=== PATIENT | female | born 1955 | race Caucasian/White ===

== ENCOUNTER 2020-01-20 12:35 | Outpatient (CLI) | payer MEDICARE, SELFPAY ==
[2020-01-20 13:48] LABS: Basophils # 0.1 10^3/uL (0.0-0.1); Basophils % 0.8 %; Eosinophils # 0.3 10^3/uL (0.0-0.8); Hematocrit 42.4 % (37.0-47.0); Hemoglobin 13.6 g/dL (11.5-15.3); Lymphocytes # 1.2 10^3/uL (0.8-4.8); Mean Corpuscular HGB Conc 32.1 g/dL (30.0-36.0); Mean Corpuscular Hemoglobin 30.4 pg (28.0-34.0); Mean Corpuscular Volume 94.6 fL (81-99); Mean Platelet Volume 10.3 fL (7.4-10.4); Monocytes # 0.5 10^3/uL (0.2-0.9); Monocytes % 7.4 %; Neutrophils # 4.4 10^3/uL (1.8-7.7); Neutrophils % 68.6 %; Nucleated Red Blood Cells % 0 %; Platelet Count 315 10^3/cmm (130-400); Red Blood Count 4.48 10^6/uL (4.1-5.3); Red Cell Distribution Width 13.2 % (12.1-15.1); White Blood Count 6.5 10^3/uL (4.0-10.0)
[2020-01-20 14:07] LABS: Alanine Aminotransferase 11 U/L (0-33); Albumin Level 4.3 g/dL (3.5-5.2); Alkaline Phosphatase 128 IU/L (35-105); Anion Gap 14.4 (5-19); Aspartate Amino Transferase 14 U/L (0-32); Blood Urea Nitrogen 13 mg/dL (8-23); Calcium 9.9 mg/dL (8.5-10.5); Carbon Dioxide 29 mmol/L (22-29); Chloride 99 mmol/L (98-107); Globulin 2.9 g/dL (1.3-4.6); Glomerular Filtration Rate 62.8 mL/min (90-130); Glucose 79 mg/dL (65-115); Osmolality Calculated 281 mOsm/kg (285-295); Potassium 4.4 mmol/L (3.5-5.1); Sodium 138 mmol/L (136-145); Total Bilirubin 0.4 mg/dL (0.15-1.2); Total Protein 7.2 g/dL (6.6-8.7)
[2020-01-20 14:32] LABS: Ferritin 35 ng/mL (15-150); Iron 119 ug/dL (37-145); Percent Saturation 54.5 % (20-50); Total Iron Binding Capacity 218 mcg/dl; Unsaturated Iron Binding 99 ug/dL (112-347)
--- NOTE | 2020-01-21 07:13 | ONC FU_ITS ---
Dr. Day Patient Follow-Up Note Patient: Bryson Orona Unit #: [id number]: 1955 Dicatated By: Ted Day M.D.Date of Visit:Jan 20, 2020 Onc Med Follow-up/Prog Note Chief Complaint: Hereditary hemochromatosis. History of Present Illness: This is a 64 year-old woman with hereditary hemochromatosis based on an HFE gene analysis which showed double heterozygosity for the C282Y and the H63D mutations. She has been seeing Dr. Kong for primary care. At one point she was on iron supplementation for suspected iron deficiency anemia. However, in November 2018 she had an HFE gene study after a brother had been diagnosed with hemochromatosis. It showed double heterozygosity for the C282Y and the H63D mutations. Her other laboratory studies at that time included CBC which showed normal hemoglobin at 14.1 g with hematocrit 41.8%. The red cell indices were normal. The white blood cell count was 6100 and the platelet count was 266,000. Chem profile showed normal liver enzymes. The serum iron studies showed elevated serum iron at 232 mcg/dL with transferrin saturation > 93%. The ferritin level, though, was relatively low at 25 ng/mL. I had seen her initially on 06/19/2019. With her ferritin level relatively low, I felt that it was unlikely that she had iron overload, and night initially this recommended rechecking laboratory studies and following her on observation/expectant management. Her further evaluation, though, was delayed, as at the time her was terminally ill and receiving hospice care. She has multiple medical illnesses including hypertension, hyperlipidemia, and coronary artery disease. She had suffered an inferior wall myocardial infarction in 2004, at which time she underwent angioplasty with stent placement to the right coronary artery. She had repeat stent placement to the right coronary artery in May 2014, and she underwent angioplasty/stent placement to the left anterior descending artery in May 2015. During that time, she had also undergone evaluation for recurrent syncope. It was thought perhaps to be due to seizures, but I don't think a definite diagnosis for that was ever established. She also has hypothyroidism and degenerative disease of the spine with chronic back pain. She is a non-smoker. She is seen for a follow-up visit. She has been feeling okay. She says her energy is not great, but she has normal activity. ECOG score is 0. Her main complaint is that she has been having really bad muscle cramps in her arms and legs, both during the daytime and at night. She did start taking an oral iron supplement every other day, but with no benefit. She also reports having restless leg symptoms at night. She has good appetite. She has not had fever. She now has just occasional hot flashes. She has some shortness of breath. She uses her inhaler about every other day. She has not had cough, and she does not complain of chest pain. She has been having acid reflux symptoms. She has no other GI or complaints. She has no significant joint or bone pain. She has no focal neurologic symptoms. She has had some issues with depression following her 's . Medications: Aspirin Low Dose 1 (81 mg) Tablet Oral daily, Cyclobenzaprine HCl 1 Tablet (of 10 mg) Oral at bedtime, DULoxetine HCl 1 (60 mg) Capsule Delayed Release Particles Oral b.i.d., hydrOXYzine HCl (25 mg) Tablet Oral Take as Directed, Lipitor 1 (80 mg) Tablet Oral at bedtime, Lisinopril 1 (10 mg) Tablet Oral at bedtime, Metoprolol Tartrate 0.5 (50 mg) Tablet Oral b.i.d., Nitrostat 1 Tablet (of 0.4 mg) Tablet, sublingual Sublingual PRN, Proventil HFA 2 Puff(s) (of 108 (90 base) mcg/act) Aerosol, solution Inhalation PRN, Synthroid 1 (75 mcg) Tablet Oral daily Allergies: cortisone, hydrocodone, Trandolapril, Vytorin, and Zocor. Review of Systems: Constitutional - Her energy is not great, but she has normal activity. Her appetite is good and her weight is stable. She has not had fever. She has just occasional hot flashes now. ECOG score is 0, ENMT - No sinus congestion/drainage. No mouth sores. No sore throat or difficulty swallowing, Hematologic/Lymphatic - No abnormal bruising or bleeding, Respiratory - She has some shortness of breath. She uses her inhaler about every other day. No cough. No pleuritic pain or hemoptysis, Cardiovascular - No angina pain. No palpitations, Gastrointestinal - No nausea or vomiting. She has acid reflux. No diarrhea or constipation. No blood in the stool or black stools, Genitourinary (F) - No dysuria or hematuria. No urinary frequency. No urgency or incontinence, Musculoskeletal - No joint or bone pain. She does complain that she has really bad muscle cramps in her arms and legs, Integumentary - No skin rash, Neurologic - No headache or dizziness. No numbness or tingling. No other focal neurologic symptoms, Psychiatric - She has anxiety/depression. She sleeps okay with hydroxyzine. Vital Signs: Performed on Jan 20, 2020 14:40 Height - 63.00 in Weight - 171.0 lbs (HIGH) BSA - 1.81 sq.m BMI - 30.29 (HIGH) Temperature - 97.5 F (LOW) Pulse - 74 /min Respiration - 15 /min BP - 144/73 mm(hg) (HIGH) O2 Sat - 93 % (LOW) Pain - 0 Physical Examination: Constitutional - She looks pretty good generally, Eyes - Sclerae nonicteric. Conjunctivae clear, ENMT - No lesions noted in the oral cavity, Hematologic/Lymphatic - No cervical, clavicular, or axillary adenopathy, Respiratory - Lungs are clear with good air movement bilaterally, Cardiovascular - Heart rhythm is regular. There is no murmur, gallop, or rub noted, Abdomen - Soft. Liver and spleen are not enlarged. There is no abdominal mass or ascites noted and there is no inguinal adenopathy, Extremities - No edema, Neurologic - No focal neurologic deficits noted. Lab/Imaging: Test performed on Jan 20, 2020 12:51 Ferritin 35 ng/mL Iron 119 mcg/dL Sodium 138 mmol/L Iron Binding Capacity (TIBC) 218 mcg/dl Potassium 4.4 mmol/L % Iron Saturation 54.5 % Chloride 99 mmol/L CO2 29 mmol/L UIBC 99 mcg/dL Anion Gap 14.4 BUN 13 mg/dL Creatinine 0.9 mg/dL Cr Clearance (Est) 76.31 mL/min eGFR 62.8 mL/min Glucose 79 mg/dL Calcium 9.9 mg/dL Protein, Total 7.2 g/dL Albumin 4.3 g/dL Globulin 2.9 g/dL Bilirubin, Total 0.4 mg/dL ALT (SGPT) 11 U/L AST (SGOT) 14 U/L Alkaline Phosphatase 128 IU/L WBC 6.5 10 3/uL RBC 4.48 10 6/uL HGB 13.6 g/dL HCT 42.4 % MCV 94.6 fL MCH 30.4 pg MCHC 32.1 g/dL RDW 13.2 % Platelet Count 315 10 3/cmm MPV 10.3 fL Neutrophils 4.4 10 3/uL Lymphocytes 1.2 10 3/uL Monocytes 0.5 10 3/uL Eosinophils 0.3 10 3/uL Basophils 0.1 10 3/uL Neutrophil % 68.6 % Lymphocyte % 18.0 % Monocyte % 7.4 % Eosinophil % 5.0 % Basophils % 0.8 % NRBC % 0 % Impression: 1. Patient with hereditary hemachromatosis based on an HFE gene analysis which showed double heterozygosity for the C282Y and the H63D mutations. 2. Although she had a significantly elevted transferrin saturation, it appeared unlikely to be symptomatic, as her ferritin level was in the low normal range, and that particular genotype is generally not associated with organ damage from iron overload. Her other medical illnesses include: 3. Hypertension. 4. Hyperlipidemia. 5. Coronary artery disease with previous myocardial infarction and angioplasty/stent placement on 3 occasions. 6. Hypothyroidism. 7. Degenerative disease of the spine with chronic back pain. Thus far she has been monitored on observation/expectant management. Her repeat laboratory studies showed just mildly elevated transferrin saturation, which would be typical with a heterozygous C282Y mutation. The ferritin level remains in the low normal range. With those findings, it appears unlikely that she has iron overload. She is having significant muscle cramping, and she also has restless leg symptoms. These have not improved on oral iron supplementation. Plan: Although I think it is unlikely that she has iron overload, I have recommended that she stop the oral iron supplement, mainly because it is not helping her symptoms. She will instead be given a prescription for ropinirole 0.25 mg twice daily, and that dosage can be escalated as necessary. She also will be given a prescription for Protonix for her GERD symptoms. She will be scheduled for a follow-up visit in 6 months. Signed By: Ted Day M.D. <<Signature on File>>
== END 2020-01-20 12:36 | disposition home or self-care (01) ==
PROVIDERS: PCP Internal Medicine; Visit Provider Internal Medicine Medical Oncology
DX: E83.110 Hereditary hemochromatosis (principal); R79.89 Other specified abnormal findings of blood chemistry; K21.9 Gastro-esophageal reflux disease without esophagitis; I10 Essential (primary) hypertension; E78.5 Hyperlipidemia, unspecified; I25.10 Atherosclerotic heart disease of native coronary artery without angina pectoris; I25.2 Old myocardial infarction; E03.9 Hypothyroidism, unspecified; M19.90 Unspecified osteoarthritis, unspecified site; Z95.1 Presence of aortocoronary bypass graft; Z95.5 Presence of coronary angioplasty implant and graft; Z79.899 Other long term (current) drug therapy
CPT/HCPCS: 80053; 82728; 83540; 83550; 85025; 99214

== ENCOUNTER 2020-07-03 13:13 | Outpatient (CLI) | payer MEDICARE, SELFPAY ==
--- NOTE | 2020-07-03 13:21 | XR_ITS ---
WS: [id number] CHEST 2 VIEWS HISTORY: COUGH COMPARISON: 12/07/2015 Lungs: Clear with no abnormality. No pleural effusion or pneumothorax. Cardiac size: Normal. Mediastinum/Aorta: Mild atherosclerosis aorta. Bones: Normal. XR/XR chest 2V* [id number] IMPRESSION: Mild atherosclerosis aorta. No pneumonia.
== END 2020-07-03 13:14 | disposition home or self-care (01) ==
LOC: RAD 13:17
PROVIDERS: PCP Internal Medicine; Visit Provider Nurse Practitioner Family
DX: R05 Cough (principal); I70.0 Atherosclerosis of aorta
CPT/HCPCS: 71046

== ENCOUNTER 2020-09-23 13:06 | Outpatient (CLI) | payer MEDICARE, SELFPAY ==
[2020-09-23 14:07] LABS: Basophils % 0.8 %; Eosinophils # 0.3 10^3/uL (0.0-0.8); Eosinophils % 5.3 %; Hematocrit 39.1 % (37.0-47.0); Hemoglobin 12.6 g/dL (11.5-15.3); Lymphocytes # 1.1 10^3/uL (0.8-4.8); Lymphocytes % 22.4 %; Mean Corpuscular HGB Conc 32.2 g/dL (30.0-36.0); Mean Corpuscular Volume 93.1 fL (81-99); Mean Platelet Volume 10.4 fL (7.4-10.4); Monocytes # 0.4 10^3/uL (0.2-0.9); Monocytes % 7.3 %; Neutrophils # 3.24 10^3/uL (1.8-7.7); Neutrophils % 63.8 %; Nucleated Red Blood Cells % 0 %; Platelet Count 325 10^3/cmm (130-400); Red Cell Distribution Width 13.7 % (12.1-15.1); White Blood Count 5.1 10^3/uL (4.0-10.0)
[2020-09-23 14:35] LABS: Alanine Aminotransferase 15 U/L (0-33); Albumin Level 3.9 g/dL (3.5-5.2); Alkaline Phosphatase 128 IU/L (35-105); Anion Gap 12.3 (5-19); Aspartate Amino Transferase 13 U/L (0-32); Blood Urea Nitrogen 13 mg/dL (8-23); Calcium 9.1 mg/dL (8.5-10.5); Carbon Dioxide 28 mmol/L (22-29); Chloride 99 mmol/L (98-107); Ferritin 19 ng/mL (15-150); Glomerular Filtration Rate 71.8 mL/min (90-130); Glucose 101 mg/dL (65-115); Iron 89 ug/dL (37-145); Osmolality Calculated 280 mOsm/kg (285-295); Percent Saturation 35.6 % (20-50); Potassium 4.3 mmol/L (3.5-5.1); Sodium 135 mmol/L (136-145); Total Bilirubin 0.3 mg/dL (0.15-1.2); Total Iron Binding Capacity 250 mcg/dl; Total Protein 6.9 g/dL (6.6-8.7); Unsaturated Iron Binding 161 ug/dL (112-347)
--- NOTE | 2020-09-23 20:37 | ONC FU_ITS ---
Dr. Day Patient Follow-Up Note Patient: Bryson Orona Unit #: [id number]: 1955 Dicatated By: Ted Day M.D.Date of Visit:Sep 23, 2020 Onc Med Follow-up/Prog Note Chief Complaint: Hereditary hemochromatosis. History of Present Illness: This is a 65 year-old woman with hereditary hemochromatosis based on an HFE gene analysis which showed double heterozygosity for the C282Y and the H63D mutations. She has been seeing Dr. Kong for primary care. At one point she was on iron supplementation for suspected iron deficiency anemia. However, in November 2018 she had an HFE gene study after a brother had been diagnosed with hemochromatosis. It showed double heterozygosity for the C282Y and the H63D mutations. Her other laboratory studies at that time included CBC which showed normal hemoglobin at 14.1 g with hematocrit 41.8%. The red cell indices were normal. The white blood cell count was 6100 and the platelet count was 266,000. Chem profile showed normal liver enzymes. The serum iron studies showed elevated serum iron at 232 mcg/dL with transferrin saturation > 93%. The ferritin level, though, was relatively low at 25 ng/mL. I had seen her initially on 06/19/2019. With her ferritin level relatively low, I felt that it was unlikely that she had iron overload, and I initially just recommended rechecking laboratory studies and following her on observation/expectant management. Her further evaluation, though, was delayed, as at the time her was terminally ill and receiving hospice care. She has multiple medical illnesses including hypertension, hyperlipidemia, and coronary artery disease. She had suffered an inferior wall myocardial infarction in 2004, at which time she underwent angioplasty with stent placement to the right coronary artery. She had repeat stent placement to the right coronary artery in May 2014, and she underwent angioplasty/stent placement to the left anterior descending artery in May 2015. During that time, she had also undergone evaluation for recurrent syncope. It was thought perhaps to be due to seizures, but I don't think a definite diagnosis for that was ever established. She also has hypothyroidism and degenerative disease of the spine with chronic back pain. She is a non-smoker. She is seen for a follow-up visit. She indicates that she was diagnosed with COVID-19 virus infection in May. She had a pretty significant illness, though she did not require hospitalization. She is really only been feeling better in the last couple of weeks. Her activity tolerance is still limited. ECOG score is 1. Her appetite is better now, but she still has no taste or smell. She does not have fever or night sweats. She still sometimes has shortness of breath, but her cough has resolved. She does not complain of chest pain. She colonel he has no GI or complaints. She was having severe body aches, but that has also resolved now. She does not complain of headache. She still has some issues with balance. She has no focal neurologic symptoms. She does report having anxiety and depression. Medications: Aspirin Low Dose 1 (81 mg) Tablet Oral daily, Cozaar (25 mg) Tablet Oral daily, Cyclobenzaprine HCl 1 Tablet (of 10 mg) Oral at bedtime, DULoxetine HCl 1 (60 mg) Capsule Delayed Release Particles Oral b.i.d., hydrOXYzine HCl (25 mg) Tablet Oral Take as Directed, Lipitor 1 (80 mg) Tablet Oral at bedtime, Metoprolol Tartrate 0.5 (50 mg) Tablet Oral b.i.d., Nitrostat 1 Tablet (of 0.4 mg) Tablet, sublingual Sublingual PRN, Proventil HFA 2 Puff(s) (of 108 (90 base) mcg/act) Aerosol, solution Inhalation PRN, Synthroid 1 (75 mcg) Tablet Oral daily Allergies: cortisone, hydrocodone, Trandolapril, Vytorin, and Zocor. Vital Signs: Performed on Sep 23, 2020 15:04 Height - 63.00 in Weight - 185.6 lbs (HIGH) BSA - 1.87 sq.m BMI - 32.88 (HIGH) Temperature - 98.2 F (LOW) Pulse - 71 /min Respiration - 18 /min BP - 152/81 mm(hg) (HIGH) O2 Sat - 97 % Pain - 0 Fatigue - 5 Physical Examination: Constitutional - She looks pretty good generally, Eyes - Sclerae nonicteric. Conjunctivae clear, ENMT - No lesions noted in the oral cavity, Hematologic/Lymphatic - No cervical, clavicular, or axillary adenopathy, Respiratory - Lungs are clear with good air movement bilaterally, Cardiovascular - Heart rhythm is regular. There is no murmur, gallop, or rub noted, Abdomen - Soft. Liver and spleen are not enlarged. There is no abdominal mass or ascites noted and there is no inguinal adenopathy, Extremities - No edema, Neurologic - No focal neurologic deficits noted. Lab/Imaging: Test performed on Sep 23, 2020 13:20 Ferritin 19 ng/mL Iron 89 mcg/dL Sodium 135 mmol/L Iron Binding Capacity (TIBC) 250 mcg/dl Potassium 4.3 mmol/L % Iron Saturation 35.6 % Chloride 99 mmol/L CO2 28 mmol/L UIBC 161 mcg/dL Anion Gap 12.3 BUN 13 mg/dL Creatinine 0.8 mg/dL Cr Clearance (Est) 91.93 mL/min eGFR 71.8 mL/min Glucose 101 mg/dL Osmolality - Calculated 280 mOsm/kg Calcium 9.1 mg/dL Protein, Total 6.9 g/dL Albumin 3.9 g/dL Globulin 3.0 g/dL Bilirubin, Total 0.3 mg/dL ALT (SGPT) 15 U/L AST (SGOT) 13 U/L Alkaline Phosphatase 128 IU/L WBC 5.1 10 3/uL RBC 4.20 10 6/uL HGB 12.6 g/dL HCT 39.1 % MCV 93.1 fL MCH 30.0 pg MCHC 32.2 g/dL RDW 13.7 % Platelet Count 325 10 3/cmm MPV 10.4 fL Neutrophils 3.24 10 3/uL Lymphocytes 1.1 10 3/uL Monocytes 0.4 10 3/uL Eosinophils 0.3 10 3/uL Basophils 0.0 10 3/uL Neutrophil % 63.8 % Lymphocyte % 22.4 % Monocyte % 7.3 % Eosinophil % 5.3 % Basophils % 0.8 % NRBC % 0 % Problem List: 1. Patient with hereditary hemochromatosis based on an HFE gene analysis which showed double heterozygosity for the C282Y and the H63D mutations. 2. Hypertension. 3. Hyperlipidemia. 4. Coronary artery disease with previous myocardial infarction and angioplasty/stent placement on 3 occasions. 5. Hypothyroidism. 6. Degenerative disease of the spine with chronic back pain. Problems Addressed with this Encounter and Plan: Patient with hereditary hemochromatosis based on an HFE gene analysis which showed double heterozygosity for the C282Y and the H63D mutations. She had a significantly elevated transferrin saturation, but I felt that symptomatic iron overload would be unlikely, as her ferritin level was in the low normal range and her particular HFE genotype is ordinarily not associated with iron overload. As such, I had opted to just follow her expectantly. Her clinical status has been stable other than she was diagnosed with COVID-19 virus infection in May, and she had a pretty significant illness, though she does now appear to be recovering. As her serum iron studies now show normal transferrin saturation at 35% and her ferritin level remains low at 19 ng/mL, it is very unlikely that she has or will have iron overload. She can be followed expectantly for this. I would recommend rechecking her serum iron studies and ferritin every 6 to 12 months. She is advised to continue regular follow-up with Dr. Kong. I will plan to see her here again only as needed. Signed By: Ted Day M.D. <<Signature on File>>
== END 2020-09-23 13:07 | disposition home or self-care (01) ==
LOC: ONCMED 13:12
PROVIDERS: PCP Internal Medicine; Visit Provider Internal Medicine Medical Oncology
DX: E83.110 Hereditary hemochromatosis (principal); Z86.16 Personal history of COVID-19
CPT/HCPCS: 80053; 82728; 83540; 83550; 85025; 99214

== ENCOUNTER 2020-10-27 07:31 | Observation (INO) | payer MEDICARE, SELFPAY ==
[2020-10-27] VITALS (15 sets, daily range): BP systolic 94–176; BP diastolic 66–109; PULSE 77–101; RESP 16–25; TEMP 36.3–36.8; O2SAT 91–98; BMI 31.9
--- NOTE | 2020-10-27 07:52 | ECG_ITS ---
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 Measurements Intervals [place] Rate: 94 P: 56 TX: 138 QRS: -9 QRSD: 93 T: 19 QT: 367 QTc: 461 Interpretive Statements SINUS RHYTHM Compared to ECG 12/07/2015 17:13:16 No significant changes Electronically Signed On 10-27-2020 17:02:21 CDT by Nehemias Pérez M.D. [id number]
--- NOTE | 2020-10-27 07:52 | XRR_ITS ---
PROCEDURE INFORMATION: Exam: XR Chest Exam date and time: 10/27/2020 8:05 AM Age: 65 years old Clinical indication: Shortness of breath; Chest pain; Type not specified; Prior surgery; Surgery type: Stents, filters TECHNIQUE: Imaging protocol: XR of the chest Views: 1 view. COMPARISON: CR XR chest 2V* [id number] 07/03/2020 1:31 PM FINDINGS: Lungs: Unremarkable. No consolidation. Pleural spaces: Unremarkable. No pleural effusion. No pneumothorax. Heart/Mediastinum: Unremarkable. No cardiomegaly. Bones/joints: Unremarkable. XR/XR chest 1V portable [id number] IMPRESSION: No acute findings.
--- NOTE | 2020-10-27 08:24 | ED_ITS ---
HPI - Chest Pain General: Chief Complaint: Chest Pain Stated Complaint: CP Time Seen by Provider: 10/27/20 07:44 History of Present Illness: HPI narrative: 65-year-old female presents emergency room complaining of chest pain. She has been having chest pain most of the night. He estimates that she took as many as 8 sublingual nitro overnight. She been having periods of chest pain with exertion that will resolve with rest the been progressively getting worse she has been taking the sublingual nitro in addition to rest from exertion to get the pain to resolve usually resolves within 5 to 10 minutes. She has had previous coronary events and has had several angiograms and stents. She had skipped a stress test several years ago and then subsequent had another event requiring intervention. She is essentially pain-free at this time. Pain is waking her up from sleep last night she said it got better when she sat up resolved with the nitro but then after she fell asleep would wake her up again. MD complaint: chest pain Pertinent past history: coronary artery disease Onset (ago): hour(s) Timing of current episode: episodic and increasing Prior episodes: Yes Onset: during rest Pain location: substernal and left chest Severity: moderate Quality: tightness, heaviness and similar to prior SD Relieving factors: nitroglycerin and rest Exacerbating factors: exertion Associated symptoms: Reports diaphoresis, dyspnea, nausea and sense of impending doom; Deny abdominal pain, fever(s), leg edema, palpitations, syncope or vomiting Treatment prior to arrival: nitroglycerin Review of Systems Const: Reports: diaphoresis; Denies: fever(s) ENMT: Denies: throat pain, ear or mastoid pain, nasal discharge or nasal congestion Card: Denies: palpitations or syncope Resp: Reports: dyspnea GI: Reports: nausea; Denies: abdominal pain or vomiting : Denies: flank pain, difficulty voiding, dysuria, urinary frequency or urinary urgency Skin/Breast: Denies: rash or pruritus PFSH ED PFSH: Medical History (Updated 10/27/20 @ 16:04 by Chevy Chavez DO) ASHD (arteriosclerotic heart disease) Depression Diastolic dysfunction Dyslipidemia GERD (gastroesophageal reflux disease) H/O acute myocardial infarction Hemochromatosis Hypertension Hypothyroidism Ischemic heart disease Surgical History (Updated 10/27/20 @ 16:04 by Chevy L Horstman, DO) S/P PTCA (percutaneous transluminal coronary angioplasty) S/P tonsillectomy Family History Mother Stroke Hyperlipidemia Hypertension CAD (coronary artery disease) Myocardial infarction Father CAD (coronary artery disease) Hypertension Myocardial infarction Sister Cancer BREAST Social History Smoking and tobacco status: never smoked Alcohol intake: never Household members: spouse Marital status: Physical Exam Const: COMMON NORMALS: no acute distress GENERAL APPEARANCE: cooperative and comfortable ORIENTATION/CONSCIOUSNESS: Yes awake, Yes oriented to person, Yes oriented to place and Yes oriented to time HENMT: COMMON NORMALS: normocephalic, atraumatic and hearing grossly normal bilaterally HEAD & SCALP: normocephalic and atraumatic Neck/C-Spine: COMMON NORMALS: no JVD Resp: COMMON NORMALS: normal respiratory effort, No retractions, No use of accessory muscles and clear to auscultation bilaterally AUSCULTATION: clear to auscultation bilaterally Cardio: COMMON NORMALS: no JVD, regular rate, regular rhythm and No murmurs present (Cardio) RATE: regular rate RHYTHM: regular rhythm GI: COMMON NORMALS: Soft to palpation and No hepatosplenomegaly present AUSCULTATION: Yes normoactive bowel sounds PALPATION: Yes Soft to palpation, No Tenderness to palpation present (GI), No Guarding due to palpation present (GI) and Yes No hepatosplenomegaly present Extremity: COMMON NORMALS: normal to inspection, capillary refill normal, no clubbing, cyanosis or edema, no calf tenderness and no pedal edema Neuro: SENSORIUM/ORIENTATION: Yes oriented to person, Yes oriented to place and Yes oriented to time Skin: COMMON NORMALS: no rashes or lesions noted GENERAL SKIN EXAM: no rashes or lesions noted Course Vital Signs: Vital signs: Vital Signs Temperature 97.4 F L 10/27/20 13:50 Pulse Rate 98 10/27/20 15:48 Respiratory Rate 17 10/27/20 15:06 Blood Pressure 150/89 10/27/20 15:06 Pulse Oximetry 95 10/27/20 15:48 MDM - Chest Pain MDM Narrative: Medical decision making narrative: Patient use up to 8 sublingual nitros last night known history of coronary disease. Concerned about her escalating angina she has no acute ST changes and her troponin is normal will admit for rule out and further cardiac evaluation. At this point did not believe they would be safe given her history and the escalating chest pain with resolution with nitro to send her home. Lab Data: Labs: Lab Results 10/27/20 10/27/20 10/27/20 Range/Units 08:21 08:21 08:21 WBC 5.5 (4.0-10.0) 10^3/ uL RBC 4.64 (4.1-5.3) 10^6/u L Hgb 13.5 (11.5-15.3) g/dL Hct 42.6 (37.0-47.0) % MCV 91.8 (81-99) fL MCH 29.1 (28.0-34.0) pg MCHC 31.7 (30.0-36.0) g/dL RDW 13.6 (12.1-15.1) % Plt Count 285 (130-400) 10^3/c mm MPV 10.3 (7.4-10.4) fL Neut % (Auto) 66.1 % Lymph % (Auto) 19.9 % Hamilton % (Auto) 7.1 % Eos % (Auto) 6.0 % Baso % (Auto) 0.7 % Neut # (Auto) 3.63 (1.8-7.7) 10^3/u L Lymph # (Auto) 1.1 (0.8-4.8) 10^3/u L Hamilton # (Auto) 0.4 (0.2-0.9) 10^3/u L Eos # (Auto) 0.3 (0.0-0.8) 10^3/u L Baso # (Auto) 0.0 (0.0-0.1) 10^3/u L Nucleated RBC % (a uto) 0 % Nucleated RBCs # 0.0 /100WBC Sodium 136 (136-145) mmol/L Potassium 4.2 (3.5-5.1) mmol/L Chloride 100 (98-107) mmol/L Carbon Dioxide 25 (22-29) mmol/L Anion Gap 15.2 (5-19) BUN 17 (8-23) mg/dL Creatinine 0.8 (0.5-0.9) mg/dL GFR Calculation 71.8 L (90-130) mL/min Glucose 116 H (65-115) mg/dL Calculated Osmolal ity 285 (285-295) mOsm/k g Calcium 9.3 (8.5-10.5) mg/dL Total Bilirubin 0.2 (0.15-1.2) mg/dL AST 14 (0-32) U/L ALT 16 (0-33) U/L Alkaline Phosphata se 142 H (35-105) IU/L Troponin T Baselin e 7 (0-10) ng/L Total Protein 7.0 (6.6-8.7) g/dL Albumin 4.4 (3.5-5.2) g/dL Globulin 2.6 (1.3-4.6) g/dL TSH (0.27-4.20) uIU/ mL 10/27/20 Range/Units 08:21 WBC (4.0-10.0) 10^3/ uL RBC (4.1-5.3) 10^6/u L Hgb (11.5-15.3) g/dL Hct (37.0-47.0) % MCV (81-99) fL MCH (28.0-34.0) pg MCHC (30.0-36.0) g/dL RDW (12.1-15.1) % Plt Count (130-400) 10^3/c mm MPV (7.4-10.4) fL Neut % (Auto) % Lymph % (Auto) % Hamilton % (Auto) % Eos % (Auto) % Baso % (Auto) % Neut # (Auto) (1.8-7.7) 10^3/u L Lymph # (Auto) (0.8-4.8) 10^3/u L Hamilton # (Auto) (0.2-0.9) 10^3/u L Eos # (Auto) (0.0-0.8) 10^3/u L Baso # (Auto) (0.0-0.1) 10^3/u L Nucleated RBC % (a uto) % Nucleated RBCs # /100WBC Sodium (136-145) mmol/L Potassium (3.5-5.1) mmol/L Chloride (98-107) mmol/L Carbon Dioxide (22-29) mmol/L Anion Gap (5-19) BUN (8-23) mg/dL Creatinine (0.5-0.9) mg/dL GFR Calculation (90-130) mL/min Glucose (65-115) mg/dL Calculated Osmolal ity (285-295) mOsm/k g Calcium (8.5-10.5) mg/dL Total Bilirubin (0.15-1.2) mg/dL AST (0-32) U/L ALT (0-33) U/L Alkaline Phosphata se (35-105) IU/L Troponin T Baselin e (0-10) ng/L Total Protein (6.6-8.7) g/dL Albumin (3.5-5.2) g/dL Globulin (1.3-4.6) g/dL TSH 4.87 H (0.27-4.20) uIU/ mL Discharge Plan Discharge Admit Provider: Alex Dougherty Clinical Impression: Unstable angina pectoris, ASHD (arteriosclerotic heart disease), Diastolic dysfunction, H/O acute myocardial infarction, S/P PTCA (percutaneous transluminal coronary angioplasty), Hypothyroidism, Hypertension Condition: Stable Coding Level of Care Code ED Order Processing Clerk for Chg Fwd Exam Comprehensive
[2020-10-27] MEDS: aspirin 81 mg Chew Tablet 324 MG PO (08:36)
[2020-10-27] MEDS: nitroglycerin 1 gm/inch oint Pkt 0.5 INCH TOPICAL (08:37)
[2020-10-27 08:39] LABS: Basophils % 0.7 %; Eosinophils # 0.3 10^3/uL (0.0-0.8); Hematocrit 42.6 % (37.0-47.0); Hemoglobin 13.5 g/dL (11.5-15.3); Lymphocytes # 1.1 10^3/uL (0.8-4.8); Lymphocytes % 19.9 %; Mean Corpuscular HGB Conc 31.7 g/dL (30.0-36.0); Mean Corpuscular Hemoglobin 29.1 pg (28.0-34.0); Mean Corpuscular Volume 91.8 fL (81-99); Mean Platelet Volume 10.3 fL (7.4-10.4); Monocytes # 0.4 10^3/uL (0.2-0.9); Monocytes % 7.1 %; Neutrophils # 3.63 10^3/uL (1.8-7.7); Neutrophils % 66.1 %; Nucleated Red Blood Cells % 0 %; Platelet Count 285 10^3/cmm (130-400); Red Blood Count 4.64 10^6/uL (4.1-5.3); Red Cell Distribution Width 13.6 % (12.1-15.1); White Blood Count 5.5 10^3/uL (4.0-10.0)
[2020-10-27 08:55] LABS: Alanine Aminotransferase 16 U/L (0-33); Albumin Level 4.4 g/dL (3.5-5.2); Alkaline Phosphatase 142 IU/L (35-105); Anion Gap 15.2 (5-19); Aspartate Amino Transferase 14 U/L (0-32); Blood Urea Nitrogen 17 mg/dL (8-23); Calcium 9.3 mg/dL (8.5-10.5); Carbon Dioxide 25 mmol/L (22-29); Chloride 100 mmol/L (98-107); Globulin 2.6 g/dL (1.3-4.6); Glomerular Filtration Rate 71.8 mL/min (90-130); Glucose 116 mg/dL (65-115); Osmolality Calculated 285 mOsm/kg (285-295); Potassium 4.2 mmol/L (3.5-5.1); Sodium 136 mmol/L (136-145); Total Bilirubin 0.2 mg/dL (0.15-1.2)
[2020-10-27 08:57] LABS: Troponin(5th) Baseline 7 ng/L (0-10)
--- NOTE | 2020-10-27 09:52 | ECG_ITS ---
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 Measurements Intervals [place] Rate: 82 P: 46 DC: 133 QRS: -9 QRSD: 89 T: -4 QT: 385 QTc: 450 Interpretive Statements SINUS RHYTHM NONSPECIFIC T-WAVE ABNORMALITY Compared to ECG 12/07/2015 17:13:16 T-wave abnormality now present Electronically Signed On 10-27-2020 17:04:48 CDT by Nehemias Pérez M.D. [id number]
--- NOTE | 2020-10-27 10:25 | PM.HP ---
Providers/Chief Complaint Primary Care Provider: Claudia Kong MD Chief Complaint: CP History of Present Illness Bryson Orona is a 65 year old female who presents to the emergency department with complaints of chest discomfort. She states she had chest discomfort, dull, left side of chest up to her arm and chin starting around 630 last night. She reports she took some sublingual nitroglycerin that helped and ended up taking around 10 last night. She has rarely had chest discomfort before, but did take an occasional nitroglycerin throughout the last 6 months. She reports this feels like her chest discomfort she had with her myocardial infarction in 2013. She was seen by cardiology in clinic in July and described occasional episodes of chest discomfort. A stress test was recommended at that time but patient did not follow through on scheduling this. She does have a past history of Covid, in May from which she has since recovered. She reports shortness of breath was associated with her chest discomfort but no diaphoresis or nausea. In regards to her coronary disease she reports she first had presentation of coronary artery disease at 48 years of age and received several stents at [facility] in [place]. She had an RCA stent placed here in 2013 and an LAD stent placed here in 2014. In the emergency department she received aspirin, and topical nitrates Review of Systems General: Reports: 10 or more systems reviewed and unremarkable except in HPI and below Const: Denies: fever(s) or chills Eyes: Denies: change in vision ENMT: Denies: throat pain Card: Reports: chest pain Resp: Reports: dyspnea : Denies: flank pain Musc: Denies: neck pain Skin/Breast: Denies: rash Neuro: Denies: headache(s) Psych: Denies: anxiety or depression Endo: Denies: polyuria Carlos/Lymph: Denies: easy bruising All/Imm: Denies: urticaria Medications/Allergies Home Medications Medication Instructions Recorded Confirmed Last Taken Type albuterol sulfate 90 mcg/actuation 2 puff INHALATION Q6H PRN 12/30/19 02/18/20 Unknown History aerosol inhaler atorvastatin 80 mg tablet 80 mg PO DAILY 12/30/19 02/18/20 Unknown History cyclobenzaprine 10 mg tablet 10 mg PO TID PRN 12/30/19 02/18/20 Unknown History levothyroxine 75 mcg tablet 75 mcg PO DAILY 12/30/19 02/18/20 Unknown History metoprolol tartrate 50 mg tablet 25 mg PO BID tab 12/30/19 02/18/20 Unknown History nitroglycerin 0.4 mg sublingual 0.4 mg SUBLINGUAL Q5M PRN 12/30/19 02/18/20 Unknown History tablet duloxetine 60 mg capsule,delayed 60 mg PO BID cap 02/18/20 02/18/20 Unknown History release hydroxyzine HCl 25 mg tablet 25 mg PO BID PRN 08/18/20 Unknown History pantoprazole 40 mg tablet,delayed 40 mg PO DAILY 08/18/20 Unknown History release aspirin [Aspir-81] 81 mg PO DAILY@10 10/27/20 10/27/20 10/26/20 History ibuprofen 600 mg PO PRN 10/27/20 10/27/20 Unknown History losartan 50 mg PO BEDTIME 10/27/20 10/27/20 Unknown History Allergies Allergy/AdvReac Type Severity Reaction Status Date / Time acetaminophen [From Vicodin] Allergy Unknown Unknown Verified 10/27/20 07:53 ezetimibe [From Vytorin] Allergy Unknown Unknown Verified 10/27/20 07:53 hydrocodone [From Vicodin] Allergy Unknown Unknown Verified 10/27/20 07:53 simvastatin [From Vytorin] Allergy Unknown Unknown Verified 10/27/20 07:53 trandolapril [From Mavik] Allergy hives Verified 10/27/20 07:53 PFSH Acute PFSH: Medical History (Updated 10/27/20 @ 10:35 by Alex Dougherty MD) ASHD (arteriosclerotic heart disease) Depression Diastolic dysfunction Dyslipidemia GERD (gastroesophageal reflux disease) H/O acute myocardial infarction Hemochromatosis Hypertension Hypothyroidism Ischemic heart disease Surgical History S/P PTCA (percutaneous transluminal coronary angioplasty) S/P tonsillectomy Family History Mother Stroke Hyperlipidemia Hypertension CAD (coronary artery disease) Myocardial infarction Father CAD (coronary artery disease) Hypertension Myocardial infarction Sister Cancer BREAST Social History Smoking and tobacco status: never smoked Alcohol intake: never Household members: spouse Marital status: Vitals/I&O/Wt Last Vital Signs Temp 98.2 F 10/27/20 07:44 Pulse 87 10/27/20 08:28 Resp 18 10/27/20 08:28 BP 176/109 10/27/20 08:28 Pulse Ox 97 10/27/20 08:28 Weight last 48 hrs Weight 84.368 kg Physical Exam Narrative: EXAM NARRATIVE: General exam is a white female, in no apparent distress, and reporting she is chest discomfort free. HEENT: Pupils equally round. Oropharynx clear. Neck is supple no lymphadenopathy or thyromegaly Cardiovascular regular rate and rhythm without murmur, no S3 or S4 Lungs are clear no wheezing or crackles Abdomen is soft obese nontender with positive bowel sounds. No obvious organomegaly exam is deferred Extremities no cyanosis clubbing or edema, cap refill brisk Skin no rash Neuro no focal deficits. Data : 10/27/20 08:21 10/27/20 08:21 Other data: EKG demonstrates sinus rhythm, normal axis/borderline left axis, nonspecific ST-T wave flattening V4 through 6 as well as inferior leads. Chest x-ray demonstrates no infiltrate, calcification noted in the aorta. LFTs are normal. Calcium is 9.3 A&P Assessment and plan (1) Chest pain: Concerning for unstable angina. Initial troponin negative Continue serial troponins and EKGs. Check TSH Full dose anticoagulation with Lovenox Aspirin, statin, beta-dwight will be continued Continue nitroglycerin ointment Cardiology consultation Check echocardiogram Status: Acute Qualifiers: Chest pain type: unspecified Qualified Code(s): R07.9 - Chest pain, unspecified (2) Ischemic heart disease: See above Status: Acute (3) Hypertension: Continue home medications Status: Acute (4) Dyslipidemia: Continue statin Status: Acute (5) Hypothyroidism: Check TSH, continue levothyroxine Status: Acute Additional A&P Information Other medical problems as outlined in past medical history Lovenox will suffice for DVT prophylaxis Full code Attestations Medical Necessity Statement*: Will need less than 2 midnight stay for evaluation and treatment of chest discomfort Time Spent in Patient Care: Greater than 35 minutes Coding Level of Care Code Acute Configuration Specialist for [facility] Diagnoses Chest pain R07.9 Chest pain type: unspecified Ischemic heart disease I25.9 Hypertension I10 Dyslipidemia E78.5 Hypothyroidism E03.9
--- NOTE | 2020-10-27 10:38 | PC.PHAR ---
pt states she takes care of her own medications-pt states she takes flexeril 10mg po hs-ext med history shows filled on 10/08/20 10d/s for 10mg po tid prn-pt states she takes hydroxyzine 25mg 100mg po hs-ext med history shows last filled on 25mg po q6h prn anxiety-pt states she takes levothyroxine 75mcg daily-ext med history shows 88mcg daily last fillled on 10/23/20 pt states she doesnt have that rx-pt states she takes metoprolol tartrate 25mg po bid-rx filled on 10/26/20 for 50mg bid-
[2020-10-27 11:22] LABS: Thyroid Stimulating Hormone 4.87 uIU/mL (0.27-4.20)
[2020-10-27 11:47] LABS: Troponin 5 2HR 7.07 ng/L (0-10); Troponin 5 2HR Delta 0.07 ABS# (0-10)
--- NOTE | 2020-10-27 13:52 | ECG_ITS ---
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 Measurements Intervals [place] Rate: 101 P: 40 ID: [id number] QRS: -15 QRSD: 96 T: 17 QT: 379 QTc: 493 Interpretive Statements SINUS TACHYCARDIA WITH OCCASIONAL VENTRICULAR PREMATURE COMPLEXES Compared to ECG 10/27/2020 10:06:20 Ventricular premature complex(es) now present Sinus rhythm no longer present T-wave abnormality no longer present Electronically Signed On 10-27-2020 17:03:52 CDT by Nehemias Pérez M.D. [id number]
[2020-10-27] MEDS: nitroglycerin 1 gm/inch oint Pkt 1 INCH TOPICAL (14:36)
[2020-10-27] MEDS: acetaminophen 325 mg Tablet 650 MG PO (14:36)
[2020-10-27] MEDS: enoxaparin 80 mg/0.8 mL Syringe SUBCUT (14:37)
[2020-10-27 15:19] LABS: Troponin 5 6HR 8.28 ng/L (0-10); Troponin 5 6HR Delta 1.28 ng/L (0-12)
--- NOTE | 2020-10-27 15:22 | ECG_ITS ---
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 Measurements Intervals [place] Rate: 108 P: 26 MI: 120 QRS: -17 QRSD: 93 T: 8 QT: 350 QTc: 470 Interpretive Statements SINUS TACHYCARDIA MODERATE ST DEPRESSION [0.05+ mV ST DEPRESSION] Compared to ECG 10/27/2020 15:10:14 ST (T wave) deviation now present Ventricular premature complex(es) no longer present Electronically Signed On 10-27-2020 16:58:15 CDT by Nehemias Pérez M.D. [id number]
[2020-10-27] MEDS: nitroglycerin 0.4 mg sublingual Tablet SUBLINGUAL (15:34)
--- NOTE | 2020-10-27 15:40 | PC.NURSE ---
Pt c/o chest pain 01/30 running down left arm no sob. Stat ECG ordered, Nitro subling given, and MD notified. Pts chest pain relieved completely after first nitro. Pt has no c/o SOB or chest pain at the present time. MD at bedside. No new orders given. Call light in reach. Will continue to monitor.
[2020-10-27] MEDS: morphine 4 mg/mL SDV 1 mL 2 MG IVP (16:12)
[2020-10-27] MEDS: nitroglycerin drip 50 MG/250 ML PREMIX IV (16:30)
--- NOTE | 2020-10-27 16:43 | PC.NURSE ---
Nitro drip started per MD orders. Started drip at 10mcg/min. Pts VS Bp 128/73, HR 104, Resp,15. Pt has no c/o pain or discomfort at the present time. Call light in reach. Will continue to monitor.
--- NOTE | 2020-10-27 17:02 | P.CONIM_ITS ---
Providers/Reason For Consult Consulting Physican/Specialty*: Cardiology Reason for Consult*: Acute coronary syndrome Attending Physician: Alex Dougherty MD Primary Care Provider: Claudia Kong MD History of Present Illness History of Present Illness Bryson Orona is a 65 year old female past medical history significant for coronary artery disease status post drug-eluting stent to proximal and distal RCA in 2013 and mid to distal LAD in 2015 who for the past 1 week struggling with worsening of chest pain upon exertion and now at rest presented with chest pain suspicious for unstable angina. Since last night she took 3-4 nitroglycerin at home which resolved the pain. In the ER she was given morphine and nitroglycerin. [facility] initial cardiac markers and EKG were not suggestive of acute coronary syndrome however presentation quite suspicious for it. During stay at [facility] she was also started on nitro drip for recurrent of chest pain at the same time her blood pressure was elevated with tachycardia. She was given extra 25 mg of metoprolol by mouth which slowed her down. Currently she is lying comfortably she just finished her dinner therefore I am going to watch her this evening if requires we may will proceed with early invasive strategy otherwise I'm planning to proceed with cath early in the morning. , Review of Systems General: Reports: 10 or more systems reviewed and unremarkable except in HPI and below Const: Reports: diaphoresis; Denies: fever(s) or chills Eyes: Denies: change in vision ENMT: Denies: throat pain, enlarged tonsils, ear or mastoid pain, nasal discharge or nasal congestion Card: Reports: chest pain; Denies: palpitations or syncope Resp: Reports: dyspnea GI: Reports: nausea; Denies: abdominal pain or vomiting : Denies: flank pain, difficulty voiding, dysuria, urinary frequency or urinary urgency Musc: Denies: neck pain Skin/Breast: Denies: rash or pruritus Neuro: Denies: headache(s) Psych: Denies: anxiety or depression Endo: Denies: polyuria Carlos/Lymph: Denies: easy bruising All/Imm: Denies: urticaria or acute wheezing Meds/Allergies Home Medications and Allergies Home Medications Medication Instructions Recorded Confirmed Last Taken Type albuterol sulfate 90 mcg/actuation 2 puff INHALATION Q6H PRN 12/30/19 10/27/20 Unknown History aerosol inhaler atorvastatin 80 mg tablet 80 mg PO BEDTIME 12/30/19 10/27/20 Unknown History cyclobenzaprine 10 mg tablet 10 mg PO BEDTIME 12/30/19 10/27/20 Unknown History levothyroxine 75 mcg tablet 75 mcg PO DAILY 12/30/19 10/27/20 Unknown History metoprolol tartrate 50 mg tablet 25 mg PO BID tab 12/30/19 10/27/20 10/26/20 History nitroglycerin 0.4 mg sublingual 0.4 mg SUBLINGUAL Q5M PRN 12/30/19 10/27/20 10/26/20 History tablet duloxetine 60 mg capsule,delayed 60 mg PO BID cap 02/18/20 10/27/20 10/26/20 History release hydroxyzine HCl 25 mg tablet 100 mg PO BEDTIME 08/18/20 10/27/20 10/26/20 History pantoprazole 40 mg tablet,delayed 40 mg PO BID 08/18/20 10/27/20 10/26/20 History release aspirin [Aspir-81] 81 mg PO DAILY@10 10/27/20 10/27/20 10/26/20 History ibuprofen 600 mg PO PRN 10/27/20 10/27/20 Unknown History losartan 50 mg PO BEDTIME 10/27/20 10/27/20 Unknown History Allergies Allergy/AdvReac Type Severity Reaction Status Date / Time ezetimibe [From Vytorin] Allergy Unknown Unknown Verified 10/27/20 07:53 hydrocodone [From Vicodin] Allergy Unknown Unknown Verified 10/27/20 07:53 simvastatin [From Vytorin] Allergy Unknown Unknown Verified 10/27/20 07:53 trandolapril [From Mavik] Allergy hives Verified 10/27/20 07:53 Current Medications Current Medications Generic Name Dose Route Start Last Admin Trade Name Freq PRN Reason Stop Dose Admin Acetaminophen 650 mg 10/27/20 14:19 10/27/20 14:36 Acetaminophen 325 Mg Tablet PO 650 mg Q6H PRN Administration MILD PAIN Enoxaparin Sodium 80 mg 10/27/20 15:00 10/27/20 14:37 Enoxaparin 80 Mg/0.8 Ml Syringe SUBCUT 80 mg Q12H STEPHANIE Administration Nitroglycerin/Dextrose 50 mg in 250 mls @ 0 mls/hr 10/27/20 16:15 10/27/20 16:30 Nitroglycerin Drip IV 5 mcg/min .Q0M STEPHANIE 1.5 mls/hr Administration Protocol Per Protocol Morphine Sulfate 2 mg 10/27/20 16:05 10/27/20 16:12 Morphine 4 Mg/Ml Sdv 1 Ml IVP 2 mg Q4H PRN Administration SEVERE PAIN Nitroglycerin 0.4 mg 10/27/20 13:33 10/27/20 15:34 Nitroglycerin 0.4 Mg Sublingual Tablet SUBLINGUAL 0.4 mg Q5M PRN Administration Chest Pain PFSH Acute PFSH: Medical History (Updated 10/27/20 @ 21:55 by Zay Loja MD) ASHD (arteriosclerotic heart disease) Depression Diastolic dysfunction Dyslipidemia GERD (gastroesophageal reflux disease) H/O acute myocardial infarction Hemochromatosis Hypertension Hypothyroidism Ischemic heart disease Surgical History (Updated 10/27/20 @ 16:04 by Chevy Chavez DO) S/P PTCA (percutaneous transluminal coronary angioplasty) S/P tonsillectomy Family History Mother Stroke Hyperlipidemia Hypertension CAD (coronary artery disease) Myocardial infarction Father CAD (coronary artery disease) Hypertension Myocardial infarction Sister Cancer BREAST Social History Smoking and tobacco status: never smoked Alcohol intake: never Household members: spouse Marital status: Dietary Habits: Current diet type/program: regular Caffeine: Yes Exercise: What type of physical activity do you participate in?: none Safety: Seatbelt use: always Home Safety: Working smoke detector in home: Yes Fire extinguisher in home: Yes Personal Safety: Do you feel safe at home: Yes Vitals/I&O/Wt Last Vital Signs Temp 97.4 F L 10/27/20 13:50 Pulse 98 10/27/20 15:48 Resp 18 10/27/20 16:12 BP 150/89 10/27/20 15:06 Pulse Ox 95 10/27/20 15:48 Weight last 48 hrs Weight 186 lb Physical Exam Narrative: EXAM NARRATIVE: GENERAL: Patient is alert, awake and oriented x3. NECK: No jugular vein distension. HEENT: No cyanosis. No icterus. No pallor. HEART: Regular S1 and S2. No murmur, rub or gallop. LUNGS: Clear to auscultate bilaterally. ABDOMEN: Soft, nontender and nondistended. Positive bowel sounds. No guarding, rebound or tenderness. CENTRAL NERVOUS SYSTEM: Grossly nonfocal. EXTREMITIES: Lower extremities without edema bilaterally. A&P Assessment and plan (1) Unstable angina pectoris: Patient presentation is pretty consistent with unstable angina. She has history of multiple drug-eluting stents in the past. She is not on Plavix therefore I will load her with 300 mg of clopidegrol, she is on anticoagulation and nitro drip currently she is chest pain-free and stable we will continue to monitor and proceed with left heart cath in the morning. Patient has been explained all risk benefit and alternative for the procedure. She would like to proceed with it. Patient understand the risk for major minor bleed, urgent emergent CABG, arrhythmia, and worse case scenario and stroke. Will optimize beta-dwight Status: Acute (2) Hypertension: Well-controlled now continue to monitor Status: Acute Qualifiers: Hypertension type: essential hypertension Qualified Code(s): I10 - Essential (primary) hypertension Consult Attestations Medical Necessity Statement: I'm expecting her stay to cross more than 2 midnights Coding Level of Care Code New Pt Acute Environmental Studies Faculty Member for Chg Fwd Patient Type New History Detailed Exam Detailed Medical Decision Making Moderate Complexity Diagnoses Unstable angina pectoris I20.0 Hypertension I10 Hypertension type: essential hypertension
[2020-10-27] MEDS: clopidogrel 300 mg Tablet PO (18:21)
[2020-10-27] MEDS: metoprolol tartrate 25 mg Tablet PO (18:21)
[2020-10-27] MEDS: potassium chloride ER 20 mEq Tablet PO (18:21)
[2020-10-27] MEDS: duloxetine 60 mg Capsule PO (18:21)
[2020-10-27] MEDS: pantoprazole DR 40 mg Tablet PO (18:21)
[2020-10-27] MEDS: FUROsemide 10 mg/mL SDV 4mL 40 MG IVP (18:22)
--- NOTE | 2020-10-27 19:15 | PC.NURSE ---
Duplicate orders for Plavix 300 and Metoprolol 25. Duplicate order not given. Metoprolol and plavix doses given at 1821 by SUZANNE Garcia.
[2020-10-27] MEDS: atorvastatin 40 mg Tablet 80 MG PO (21:32)
--- NOTE | 2020-10-27 21:36 | PC.NURSE ---
Patient has left heart catheterization planned for 10/28/20 at 0600. She has a Lovenox due at 0300. Informed Dr Loja and received instructions to hold the 0300 dose of Lovenox. RBVO
--- NOTE | 2020-10-27 21:46 | PC.NURSE ---
Patient current BP 94/67. Spoke with Dr Loja regarding Metoprolol 37.5mg and Losartan 50mg both PO. Patient also on Nitro drip as documented for chest pain. Received orders to hold Losartan and to give onetime dose of Metoprolol 12.5mg. Patient had received onetime dose of Metoprolol 25mg PO at 1821 this evening. RBVO
[2020-10-27] MEDS: metoprolol tartrate 25 mg Tablet 12.5 MG PO (21:53)
[2020-10-28] VITALS (43 sets, daily range): BP systolic 108–167; BP diastolic 49–105; PULSE 67–103; RESP 12–36; TEMP 36.8; O2SAT 85–99
--- NOTE | 2020-10-28 00:40 | PC.NURSE ---
PM Assessment Patient resting in bed watching TV. A&O x4, RR even an unlabored. Patient voices no C/O of pain or other needs at this time. Nurse to continue to monitor.
--- NOTE | 2020-10-28 04:38 | PC.NURSE ---
Discussed with patient left heart cath scheduled for 0600. Asked patient if Dr Loja had spoke with her. Patient reports that Dr Loja did explain the procedure to include risks and benefits. Patient stated, I have had this procedure many times before. I do know what to expect. Consent signed at this time.
[2020-10-28 04:57] LABS: Basophils % 0.8 %; Eosinophils # 0.3 10^3/uL (0.0-0.8); Eosinophils % 5.3 %; Hematocrit 40.3 % (37.0-47.0); Hemoglobin 12.8 g/dL (11.5-15.3); Lymphocytes # 1.3 10^3/uL (0.8-4.8); Lymphocytes % 24.5 %; Mean Corpuscular HGB Conc 31.8 g/dL (30.0-36.0); Mean Corpuscular Hemoglobin 29.6 pg (28.0-34.0); Mean Corpuscular Volume 93.1 fL (81-99); Mean Platelet Volume 10.2 fL (7.4-10.4); Monocytes # 0.5 10^3/uL (0.2-0.9); Monocytes % 10.4 %; Neutrophils % 58.8 %; Nucleated Red Blood Cells % 0 %; Platelet Count 260 10^3/cmm (130-400); Red Blood Count 4.33 10^6/uL (4.1-5.3); Red Cell Distribution Width 13.9 % (12.1-15.1); White Blood Count 5.1 10^3/uL (4.0-10.0)
[2020-10-28] MEDS: diphenhydrAMINE 50 mg Capsule PO (05:13)
[2020-10-28] MEDS: sodium chloride 0.9% 1,000 ML 50 ML IV (05:14)
[2020-10-28 05:23] LABS: Alanine Aminotransferase 13 U/L (0-33); Albumin Level 3.8 g/dL (3.5-5.2); Alkaline Phosphatase 118 IU/L (35-105); Anion Gap 11.1 (5-19); Aspartate Amino Transferase 13 U/L (0-32); Blood Urea Nitrogen 17 mg/dL (8-23); Calcium 9.1 mg/dL (8.5-10.5); Carbon Dioxide 30 mmol/L (22-29); Chloride 101 mmol/L (98-107); Globulin 2.6 g/dL (1.3-4.6); Glomerular Filtration Rate 71.8 mL/min (90-130); Glucose 110 mg/dL (65-115); Osmolality Calculated 288 mOsm/kg (285-295); Potassium 4.1 mmol/L (3.5-5.1); Sodium 138 mmol/L (136-145); Total Bilirubin 0.3 mg/dL (0.15-1.2); Total Protein 6.4 g/dL (6.6-8.7)
--- NOTE | 2020-10-28 05:28 | XACV_ITS ---
Exam Room: 1 Ht: 163 cm Wt: 84 kg BSA: 1.98 m2 Gender: Female : 1955 Any Known Allergies: Other Exam Priority: Routine Indication(s): - Unstable angina Procedure(s): Procedure Description: Diagnostic procedure Procedure Description: PCI procedure Procedure Description: Drug Eluting Coronary Stent Procedure Description: Coronary Angiography Diagnostic Cath Status: Urgent Diagnostic Findings * LM has 0% stenosis. * LAD has 0% stenosis. * CX has 0% stenosis. * pRCA: Severe 99% stenosis, NENA: 3 flow. * Coronary angiography shows right dominance. Interventional Findings * pRCA: 99% stenosis treated with AB MINI TREK 2.00X15 RX BALLOON, MICAH Arvizu JERICHO 3.0X22 MOISES, and MDT HARDY EUPHORA RX [id number] BALLOON. 0% residual stenosis, NENA: 3 flow. Conclusions 1. 1- 2. Left main is normal 3. 2- 4. LAD has luminal irregularity and patent previously placed mid stent without significant in-stent restenosis 5. 3- 6. LCx has luminal irregularity 7. 4- 8. RCA is subtotally occluded in the midsegment with stable good flow. It is the culprit vessel 9. . 10. Patent previously placed mid LAD stent. 11. There is severe coronary artery disease with one vessel disease. 12. pRCA was treated with two Balloon and Drug Eluting Stent. Recommendations * 1-Return to inpatient for close monitoring and routine cath care 2-Risk factor modification for secondary prevention 3-Statin and aspirin 81 mg life--long, if tolerated 4-Continue Clopidegrol 75mg p.o. daily for at least one year. We will assess at the end of one year again to continue if further or not 5-Continue optimal medical management 6-Follow up with Dr. Loja in four weeks and your primary care in 10 days. Diagnostic RX Recommendation: PCI w/o planned CABG Pressures Phase:Rest AO : 102 / 70 ( 85 ) @ 1:27:00 AM 119 / 64 ( 86 ) @ 1:33:00 AM 111 / 69 ( 85 ) @ 1:36:00 AM Clinical Evaluation EBL: 5mL-10mL Procedural Details Procedure Consent Obtained. Current Diagnosis : Unstable angina. Pre-Procedure Time Out. Identified patient by full name and date of as verbalized by the patient/guarantor. Does the consent match the physician's order: Yes. Accurate & Complete Informed Consent: Yes. Inpatient/Outpatient History & Physical on Chart: Yes. If H&P is completed, is and addenduem needed: No. Visualize and Verify Site with Patient/Guarantor: N/A. Relevant Radiology Images available: Yes. The risks, benefits, and alternatives of sedation and/or procedure were discussed by physician. The patient agrees to continue. Procedure started. [facility] Clinical Fraility Score: 3: Managing Well. Egg Pasteurizer Indications: ACS <=24, unstable angina. Chest Pain Symptom Assessment: Typical Angina Symptoms. Cardiovascular Instability: No. Correct patient, site and procedure confirmed by cath team. Current diagnosis: Unstable angina. PERRLA. Strong, equal hand dental ceramist assistant bilaterally. Lungs clear x 5 lobes. IV Site on Arrival: 20 gauge in the right hand. IV Fluids: 0.9% NaCl at KVO. 100 mL infused prior to director of cardiac cath lab. Pre Procedural Pulses: bilateral dorsalis pedis was 2+. Pre Procedural Pulses: bilateral posterior tibial was 2+. Pre Procedural Pulses: bilateral radial was 3+. Oxygen started at 2liters/min via nasal canula. right groin was prepped with chloroprep then draped in the usual sterile fashion. right radial was prepped with chloroprep then draped in the usual sterile fashion. Physician notified. Baseline sample Acquired. HR: 84 BPM. Patient's family unavailable. Equipment: 6F - Radial. Cardiac Cath Pack. ACIST Manifold Kit Model BT 2000. Heparinized Saline (2 units/mL), 1000 mL bag. Physician arrived. Immediate Pre-Procedure Time Out. Correct Patient: Yes; Correct Procedure: Yes; Correct Site: Yes; Correct Patient Position: Yes; Correct Supplies: Yes; Dried Flammable Prep: Yes; Blood Products Available: N/A. Physician scrubbed in. Lidocaine 1% infiltrated to the right radial. Arterial access obtained. A 5 fijian TIG catheter in over the exchange wire. Multiple views taken of left coronary artery. Catheter redirected to the RCA. Multiple views taken of right coronary artery. Catheter removed over the exchange wire. 6 fijian JR 4 SH guide catheter was inserted over the exchange wire. Diagnostic procedure complete, starting PCI of the Mid RCA. Runthrough guidewire was advanced through the guide catheter to lesion in the mid RCA. Inflation number : 1 A AB MINI TREK 2.00X15 RX BALLOON was prepped and advanced across the Mid RCA , then inflated to 20 JAMIE for 0:21 seconds. Balloon out. Sheba Martin RN, DIRECTOR OF CARDIAC CATH LAB was relieved by RT Afshan as monitoring person. Inflation Number : 2 A MDT R JERICHO 3.0X22 MOISES -Lot Number# [id number] exp date: 07-08-2022 was prepped and advanced across the Mid RCA. The stent was deployed at 18 JAMIE for 0:32 seconds. Stent balloon out over wire. Inflation number : 3 A MDT NC EUPHORA RX [id number] BALLOON was prepped and advanced across the Mid RCA , then inflated to 14 JAMIE for 0:30 seconds. Inflation number: 4 The MDT NC EUPHORA RX [id number] BALLOON was reinflated across the Mid RCA, to 14 JAMIE for 0:31 seconds. Balloon out. checking results. Wire out. Guide catheter out. ACT drawn. Results 259 seconds. Therapeutic limits - pre-heparin administration 90-150 seconds and monitoring heparin during a vascular procedure >250 seconds. TR band placed. Hemostasis obtained. Post Procedure: Pulses reassessed and unchanged. PERRLA. Strong, equal hand dental ceramist assistant bilaterally. No VTE prophylaxis required. Medication's Wasted: Other = versed 1 mg. Medication's Wasted: Other = fentanyl 25mg. Medication's Wasted: Lidocaine 1% = 18 mL. Medication's Wasted: Nitro = 49.8 mg. Medication's Wasted: Heparin = 2000 units. Total IV fluids: 51.1 mL. Contrast type used: Omnipaque 300 mgI/mL, 500 mL bottle. Contrast Material : Omnipaque 112 ml. A TR Band was successful obtaining hemostatsis at the Right Radial artery insertion site. Post-op diagnosis: post PCI instant restenosis of previous stent. PCI Indication: unstable angina. Complications: none. Estimated blood loss: 5mL-10mL. Procedure completed. Patient transferred by wheelchair to 1st floor. Vital chart was stopped. Access Site Site: Right Radial artery Sheath Size: 6 Fr Hemostasis Method: TR Band Hemostasis Success: Successful Procedure Medications Start: 6:23 AM Stop: 6:23 AM Medication: Versed Amount: 2 mg Route: I.V. Start: 6:23 AM Stop: 6:23 AM Medication: Fentanyl Amount: 50 mcg Route: I.V. Start: 6:27 AM Stop: 6:27 AM Medication: Nitrogylcerin Amount: 200 mcg Route: I.A. Start: 6:27 AM Stop: 6:27 AM Medication: Heparin Amount: 5000 units Route: I.V. Start: 6:33 AM Stop: 6:33 AM Medication: Heparin Amount: 4000 units Route: I.V. Start: 6:40 AM Stop: 6:40 AM Medication: Versed Amount: 1 mg Route: I.V. Start: 6:40 AM Stop: 6:40 AM Medication: Fentanyl Amount: 25 mcg Route: I.V. Start: 6:44 AM Stop: 6:44 AM Medication: Zofran (ondansetron) Amount: 4 mg Route: I.V. I, the attending physician, have reviewed and verified all procedure medications. Yes, all medications given per verbal order History/Risk Factors Hypertension: Yes Dyslipidemia: Yes Peripheral Arterial Disease (PAD): No Myocardial Infarction (OK): No Obesity: No Renal Disease: No Tobacco Use: Never Prior Interventions PCI: Yes CABG: No Valve Surgery: No Date of PCI: 06/22/2015 Report Signatures Finalized by Zay Loja MD on 11/09/2020 09:58 AM
[2020-10-28] MEDS: sodium chloride 0.9% 1,000 ML 100 ML IV (07:15)
--- NOTE | 2020-10-28 07:18 | PM.PN ---
Subjective Subjective: Interval history: Patient underwent coronary angiogram which showed patent previously placed LAD stents however mid RCA stent has 99% subtotal occlusion with in-stent restenosis. It was treated with balloon angioplasty followed by drug-eluting stent postdilated with noncompliant balloon. Excellent angiographic result was achieved. Vitals/I&O/Wt Last Vital Signs Temp 98.2 F 10/28/20 04:00 Pulse 83 10/28/20 05:54 Resp 20 H 10/28/20 04:00 BP 108/89 10/28/20 04:00 Pulse Ox 91 10/28/20 04:00 10/27/20 10/28/20 10/28/20 22:59 06:59 14:59 Intake Total 248.775 / 248.775 Balance 248.775 / 248.775 Weight last 48 hrs Weight 186 lb Physical Exam Narrative: EXAM NARRATIVE: GENERAL: Patient is alert, awake and oriented x3. NECK: No jugular vein distension. HEENT: No cyanosis. No icterus. No pallor. HEART: Regular S1 and S2. No murmur, rub or gallop. LUNGS: Clear to auscultate bilaterally. ABDOMEN: Soft, nontender and nondistended. Positive bowel sounds. No guarding, rebound or tenderness. CENTRAL NERVOUS SYSTEM: Grossly nonfocal. EXTREMITIES: Lower extremities without edema bilaterally. Data : 10/28/20 04:13 10/28/20 04:13 A&P Assessment and plan (1) Unstable angina pectoris: Post PCI to mid RCA for in-stent restenosis. Continue Plavix continue beta-dwight statin. Echocardiogram will be obtained to assess LV function. Most likely discharge this evening. Status: Acute (2) Hypertension: Well-controlled now continue to monitor Status: Acute Qualifiers: Hypertension type: essential hypertension Qualified Code(s): I10 - Essential (primary) hypertension Attestations Medical Necessity Statement*: Post PCI patient will be monitored. 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
--- NOTE | 2020-10-28 07:45 | PC.NURSE ---
Back from labor custodian Pt is drowsy and groggy from post procedure sedation. Not in distress. Complains of restless leg. Applied O2 at 2 L/min via nasal cannula. Tr band intact. NO hematoma, swelling or bleeding. Elevated right arm with pillow. Radial pulse is papable +3. Instructed pt on activity restrictions on right arm such as no pushing or pulling. To notify nurse for any unusual pain or numbness or bleeding. Pt verbalizes understanding. Call light provided close by.
[2020-10-28] MEDS: clopidogrel 75 mg Tablet PO (08:22)
[2020-10-28] MEDS: pantoprazole DR 40 mg Tablet PO ×2 (08:22→17:29)
[2020-10-28] MEDS: levothyroxine 75 mcg Tablet PO (08:23)
[2020-10-28] MEDS: ALPRAZolam 0.25 mg Tablet PO (08:23)
[2020-10-28] MEDS: aspirin 325 mg Tablet PO (08:23)
[2020-10-28] MEDS: duloxetine 60 mg Capsule PO ×2 (08:23→17:29)
[2020-10-28] MEDS: metoprolol tartrate 25 mg Tablet 37.5 MG PO (08:26)
--- NOTE | 2020-10-28 08:46 | PC.NURSE ---
pt wants bath tonight
--- NOTE | 2020-10-28 10:07 | PC.CHAP ---
Pastoral Care Encounter/Spiritual Assessment Type of Contact [] Declined manager community outreach visit [] Patient/Family/Request visit [] Outpatient visit [] Follow-up visit [] Physician referral [] Code/Alert [x] Routine visit [] Staff referral [] Actively dying [x] Patient sleeping [] Family support [] [] Out of room [] Palliative care [] [] Receiving care in room [] Pre-surgical visit [] Trauma [] Long length of stay [] ICU visit [] Other: Relational/Emotional Strength [] Patient feels connected with others/family/visitors/staff [] Distress [] Loneliness/isolation [] Abandonment Spirituality of Patient [] Person of Noa [] Attends Sabianism of their Noa [] Believes in Prayer [] Reads Bible or Pentecostal materials [] There are Spiritual issues to be addressed Lead Electrician Interventions [] Prayer [] Active listening [] Non-anxious presence [] Spiritual/emotional support [] Crisis/trauma care [] Spiritual counseling [] Bereavement support [] Provided bereavement packet [] Provided Bible/devotional materials [] Provided toy/stuffed animal, coloring book to patient or family member [] Provided Communion [] Anointing/[place] [] Salvation [x] Completed spiritual assessment [] Other: Impact on Illness or Injury [] Angry [] Fearful [] Anxious [] Often cries [] Exhaustion [] Unable to work [] Unable to attend mormonism [] Unable to walk/stand [] Unable to read [] Unable to drive [] Unable to eat/drink [] Unable to sleep [] Unable to be with family [] Patient intubated [] Other: Summary Time spent with patient
--- NOTE | 2020-10-28 11:15 | PC.NURSE ---
Addendum entered by Shivani Murphy RN 10/28/20 12:38: Right wrist site is cleanse and pressure dressing applied to site. covered with tegaderm. Activity restrictions instructed to pt regarding not lifting, pushing or pulling using the right arm. pt verbalizes understanding. Original Note: TR Band off No hematoma, swelling or bleeding. Pt has mild tenderness on the puncture site on right wrist. Radial pulse is palpable +3. Skin is warm to the touch. Activity restrictions provided to pt on not using right arm.
--- NOTE | 2020-10-28 15:31 | PM.DCS ---
Discharge Providers Date of Admission: 10/27/20 10:04 Date of Discharge: October 28, 2020 Attending Provider at Admission: Alex Dougherty MD Attending Provider at Discharge: Alex Dougherty MD Primary Care Provider: Claudia Kong MD Diagnoses at Discharge Discharge Diagnosis (1) Unstable angina pectoris: Status: Acute (2) Hypertension: Status: Acute Qualifiers: Hypertension type: essential hypertension Qualified Code(s): I10 - Essential (primary) hypertension Reason for Visit Reason for Visit: CP Hospital Course Hospital Course Bryson presented to the hospital with chest discomfort. She has a long history of coronary artery disease with previous stenting. There was concern for unstable angina. She was placed on full dose anticoagulation, aspirin, and ultimately nitroglycerin drip. Troponins were negative. Cardiology was consulted and secondary to persistent discomfort she was taken for angiogram on October 28. This demonstrated an RCA lesion which required stenting. Full report from cardiology is pending. Following this she did well with no discomfort. It was thought she could go home evening of October 28 after approval by cardiology. Angiogram site right wrist without significant hematoma. I discussed with her treating scientific informatics project leader of potential of getting an echocardiogram as well. After discussion, it was decided that this will be obtained and ordered as an outpatient and will be followed up by cardiology. At time of discharge patient was chest discomfort free. She had ambulated the collins without any chest discomfort. Physical Exam Narrative: EXAM NARRATIVE: General exam no apparent distress Cardiovascular regular rate and rhythm without murmur Lungs clear Abdomen is soft with positive bowel sounds Extremities no cyanosis clubbing or edema, right wrist without significant hematoma. Discharge Data Data Completed and Pending: Completed Studies During Hospitalization Category Date Time Status XR chest 1V luiza ble [id number] Stat Exams 10/27/20 07:52 Completed Pending at discharge Category Date Time Status MANAGER MAIL request for service Routin e Exams 10/28/20 05:28 Ordered Labs from last 24 hours 10/28/20 10/28/20 04:13 04:13 WBC 5.1 RBC 4.33 Hgb 12.8 Hct 40.3 MCV 93.1 MCH 29.6 MCHC 31.8 RDW 13.9 Plt Count 260 MPV 10.2 Neut % (Auto) 58.8 Lymph % (Auto) 24.5 [place] % (Auto) 10.4 Eos % (Auto) 5.3 Baso % (Auto) 0.8 Neut # (Auto) 3.00 Lymph # (Auto) 1.3 [place] # (Auto) 0.5 Eos # (Auto) 0.3 Baso # (Auto) 0.0 Nucleated RBC % (a uto) 0 Nucleated RBCs # 0.0 Sodium 138 Potassium 4.1 Chloride 101 Carbon Dioxide 30 H Anion Gap 11.1 BUN 17 Creatinine 0.8 GFR Calculation 71.8 L Glucose 110 Calculated Osmolal ity 288 Calcium 9.1 Total Bilirubin 0.3 AST 13 ALT 13 Alkaline Phosphata se 118 H Total Protein 6.4 L Albumin 3.8 Globulin 2.6 Vitals: Last Vital Signs Temp 98.2 F 10/28/20 04:00 Pulse 76 10/28/20 14:44 Resp 20 H 10/28/20 14:44 BP 134/74 10/28/20 14:44 Pulse Ox 94 10/28/20 14:44 Discharge Plan Discharge Patient Disposition: Home Condition: Stable Prescriptions: New clopidogrel 75 mg Tablet 75 mg PO DAILY Qty: 30 RF: 0 metoprolol tartrate 25 mg Tablet 37.5 mg PO BID@0900,2100 Qty: 90 RF: 0 Continued atorvastatin [Lipitor] 80 mg tablet 80 mg PO BEDTIME RF: 0 albuterol sulfate 90 mcg/actuation HFA aerosol inhaler 2 puff INHALATION Q6H PRN (Reason: Shortness Of Breath) RF: 0 cyclobenzaprine 10 mg tablet 10 mg PO BEDTIME RF: 0 nitroglycerin [Nitrostat] 0.4 mg tablet, sublingual 0.4 mg SUBLINGUAL Q5M PRN (Reason: Chest Pain) RF: 0 levothyroxine [Synthroid] 75 mcg tablet 75 mcg PO DAILY RF: 0 duloxetine 60 mg capsule,delayed release(DR/EC) 60 mg PO BID RF: 0 hydroxyzine HCl 25 mg tablet 100 mg PO BEDTIME RF: 0 pantoprazole 40 mg tablet,delayed release (DR/EC) 40 mg PO BID RF: 0 losartan 50 mg tablet 50 mg PO BEDTIME RF: 0 Aspir-81 81 mg Tablet,Delayed Release (Dr/Ec) 81 mg PO DAILY@10 RF: 0 Discontinued metoprolol tartrate 50 mg tablet 25 mg PO BID RF: 0 ibuprofen 200 mg Tablet 600 mg PO PRN RF: 0 Referrals: Claudia Kong MD [Primary Care Provider] - 4-7 days May Sainz MD [Physician] - 1-3 days (Per protocol to see nurse practitioner following catheter in the next several days and then scientific informatics project leader in approximately 4 weeks.) Discharge Diet: Cardiac Discharge Activity: Increase activity as tolerated Patient Instructions: Left Heart Catheterization (DC), Coronary Angioplasty (DC) Activity Restrictions/Additional Instructions: Take all medicine as prescribed Keep follow-up Make sure you take Plavix every day Discharge Attestations Time Spent in Discharge Care*: greater than 30 min Quality Metrics Clinical Quality Measures During this hospital stay, did patient experience: None Coding Level of Care Code Acute Chg FW DC note Diagnoses Unstable angina pectoris I20.0 Hypertension I10 Hypertension type: essential hypertension
[2020-10-28] MEDS: FUROsemide 20 mg Tablet PO (16:06)
--- NOTE | 2020-10-28 19:00 | PC.NURSE ---
Discharge to home with daughter Instructed pt to follow-up with her pcp,materials branch chief as discussed. Educated pt on her new prescribed meds action, dosing and possible side effects and the dose change on her metoprolol. 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 Discharge packet provided to pt. hered via wheelchair.
== END 2020-10-28 19:00 | disposition home or self-care (01) ==
LOC: ER 10:02 → CSU 11:44
PROVIDERS: Internal Medicine Cardiovascular Disease; Admitting Provider Internal Medicine; Emergency Provider Family Medicine; PCP Internal Medicine; Visit Provider Internal Medicine
DX: I25.110 Atherosclerotic heart disease of native coronary artery with unstable angina pectoris (principal); I10 Essential (primary) hypertension; I25.9 Chronic ischemic heart disease, unspecified; Z95.5 Presence of coronary angioplasty implant and graft; Z79.82 Long term (current) use of aspirin; E78.5 Hyperlipidemia, unspecified; E03.9 Hypothyroidism, unspecified; Z82.49 Family history of ischemic heart disease and other diseases of the circulatory system; Z83.3 Family history of diabetes mellitus
CPT/HCPCS: 36415; 71045; 80053; 84443; 84484; 85025; 85347; 93005; 93454; 96361; 96372; 96374; 96375; 99285; C1725; C1769; C1874; C1887; C1894; C9600; G0378; J1644; J1650; J1940; J2250; J2270; J2405; J3010; J3490; J7030; Q0163; Q9967

== ENCOUNTER → 2020-11-04 14:56 | Outpatient (BNVA) | payer MEDICARE, SELFPAY | PROVIDERS: PCP Internal Medicine; Visit Provider Nurse Practitioner Family | DX: I25.10 Atherosclerotic heart disease of native coronary artery without angina pectoris (principal) | CPT/HCPCS: 80048 ==

== ENCOUNTER 2020-12-22 16:18 | Outpatient (CLI) | payer MEDICARE, SELFPAY ==
--- NOTE | 2020-12-22 16:27 | XRR_ITS ---
PROCEDURE INFORMATION: Exam: XR Left Hand Exam date and time: 12/22/2020 4:27 PM Age: 65 years old Clinical indication: Pain; Hand; Left; Additional info: Left hand pain TECHNIQUE: Imaging protocol: XR Left hand. Views: 3 or more views. COMPARISON: No relevant prior studies available. FINDINGS: Bones/joints: Subluxation and severe degenerative changes of the 1st carpometacarpal joint, with adjacent chronic degenerative ossified bodies. Mild degenerative changes of the distal interphalangeal joints. The bones are otherwise intact and in normal alignment. No fracture identified. Soft tissues: Normal. XR/XR hand LT min 3V* [id number] IMPRESSION: 1. Severe degenerative changes of the 1st carpometacarpal joint.
== END 2020-12-22 16:19 | disposition home or self-care (01) ==
PROVIDERS: PCP Internal Medicine; Visit Provider Nurse Practitioner Family
DX: M79.642 Pain in left hand (principal)
CPT/HCPCS: 73130

== ENCOUNTER → 2020-12-29 17:00 | Outpatient (BNVA) | payer MEDICARE, SELFPAY | PROVIDERS: PCP Internal Medicine; Visit Provider Internal Medicine Cardiovascular Disease | DX: R06.00 Dyspnea, unspecified (principal); I10 Essential (primary) hypertension; E78.5 Hyperlipidemia, unspecified; I25.10 Atherosclerotic heart disease of native coronary artery without angina pectoris; I25.9 Chronic ischemic heart disease, unspecified; R07.9 Chest pain, unspecified | CPT/HCPCS: 80053; 80061; 83721; 83735; 83880 ==

== ENCOUNTER 2021-06-09 11:30 | Outpatient (CLI) | payer MEDICARE, SELFPAY ==
[2021-06-09 12:28] LABS: Anion Gap 13.9 (5-19); Blood Urea Nitrogen 11 mg/dL (8-23); Calcium 8.6 mg/dL (8.5-10.5); Carbon Dioxide 27 mmol/L (22-29); Chloride 101 mmol/L (98-107); Glomerular Filtration Rate 71.8 mL/min (90-130); Glucose 88 mg/dL (65-115); Osmolality Calculated 283 mOsm/kg (285-295); Potassium 4.9 mmol/L (3.5-5.1); Sodium 137 mmol/L (136-145)
== END 2021-06-09 11:31 | disposition home or self-care (01) ==
LOC: LAB 11:34
PROVIDERS: PCP Internal Medicine; Visit Provider Internal Medicine
DX: I10 Essential (primary) hypertension (principal)
CPT/HCPCS: 80048

== ENCOUNTER 2021-11-22 12:52 | Outpatient (CLI) | payer MEDICARE, SELFPAY ==
--- NOTE | 2021-11-22 13:07 | MM_ITS ---
WS: [id number] BILATERAL 3D TOMOSYNTHESIS DIGITAL SCREENING MAMMOGRAPHY WITH CAD CLINICAL INFORMATION: SCREENING HISTORY: Screening mammogram. No current complaints. COMPARISON: December 12, 2016 TECHNIQUE: Bilateral CC and MLO views. FINDINGS: Scattered fibroglandular densities bilaterally. No suspicious focal mass, asymmetry, calcifications, or architectural distortion. No evidence of malignancy. MM/[place] [id number] IMPRESSION: BI-RADS: 1-Negative FOLLOW UP: 1 Year Follow-up Recommend return to annual screening mammography.
== END 2021-11-22 12:53 | disposition home or self-care (01) ==
PROVIDERS: PCP Internal Medicine; Visit Provider Internal Medicine
DX: Z12.31 Encounter for screening mammogram for malignant neoplasm of breast (principal)
CPT/HCPCS: 77067

== ENCOUNTER 2022-01-17 12:37 | Outpatient (CLI) | payer MEDICARE, SELFPAY ==
--- NOTE | 2022-01-17 13:03 | XR_ITS ---
WS: [id number] XR lumbar spine min 4V [id number] REASON FOR EXAM: LUMBAGO WITH SCIATICA FINDINGS: Rotatory scoliosis convex left. No significant vertebral body compression deformity or focal lesion. Moderate narrowing of the intervertebral disc spaces L1-L5. 4 mm of anterolisthesis of L4 4 on L5. Degenerative changes in the facet joints L3-S1. No spondylolysis identified. XR/XR lumbar spine min 4V [id number] IMPRESSION: Degenerative spondylosis of the lumbar spine as above.
== END 2022-01-17 12:38 | disposition home or self-care (01) ==
PROVIDERS: PCP Internal Medicine; Visit Provider Nurse Practitioner Family
DX: M54.40 Lumbago with sciatica, unspecified side (principal)
CPT/HCPCS: 72110

== ENCOUNTER → 2022-03-22 14:23 | Outpatient (BNVA) | payer MEDICARE, SELFPAY | PROVIDERS: PCP Internal Medicine; Visit Provider Internal Medicine Cardiovascular Disease | DX: R07.9 Chest pain, unspecified (principal); I25.10 Atherosclerotic heart disease of native coronary artery without angina pectoris; E78.5 Hyperlipidemia, unspecified; I10 Essential (primary) hypertension; E03.9 Hypothyroidism, unspecified | CPT/HCPCS: 99214 ==

== ENCOUNTER 2022-04-21 09:14 | Outpatient (CLI) | payer MEDICARE, SELFPAY ==
--- NOTE | 2022-04-21 09:30 | MR_ITS ---
WS: [id number] MRI LUMBAR SPINE NONCONTRAST TECHNIQUE: Sagittal T1, T2 and STIR imaging. Axial T1 and T2 imaging. CLINICAL INFORMATION: LUMBAR SPONDYLOSIS W/RADICULOPATHY COMPARISON: MRI 2015 FINDINGS: Mild lumbar curve. No acute compression. Slight anterolisthesis L4 on L5. L1-L2: Shallow RIGHT subarticular protrusion L1-L2 impinges the traversing RIGHT L2 nerve root in the subarticular recess. Mild RIGHT L1-L2 foraminal narrowing. Moderate facet arthropathy. This is new f rom previous. L2-L3: Disc osteophytic ridging. Spinal canal and foramen are patent. Moderate facet arthropathy. Sli ght narrowing of the LEFT subarticular recess similar to 2015. L3-L4: Mild annular bulging. Moderate facet arthropathy. Slight effacement of the ventral thecal sac. Spinal canal and foramen are patent. L4-L5: Mild annular bulging. Moderate facet arthropathy. Spinal canal and foramen are patent. L5-S1: LEFT eccentric disc osteophyte complex slightly contacts the far exiting LEFT L5 nerve root la terally. Spinal canal is patent. Advanced facet arthropathy. Visualized pelvic bony structures: Normal. Paravertebral soft tissues: Normal. MR/MR lumbar spine wo con* [id number] IMPRESSION: 1. Mild lumbar curve. No acute compression. No high-grade central canal stenos is. 2. Slight anterolisthesis L4 on L5 measuring 4mm 3. RIGHT subarticular protrusion L1-L2 impinges the RIGHT traversing L2 nerve root with mild RIGHT foraminal narrowing. This is new compared to 2015. 4. Mild narrowing LEFT L2-L3 subarticular recess similar to previous 5. LEFT eccentric disc osteophyte complex slightly contacts the far exiting LE FT L5 nerve root laterally. 6. Moderate to advanced facet arthropathy L4-L5 and L5-S1. 7. No other acute findings.
== END 2022-04-21 09:15 | disposition home or self-care (01) ==
PROVIDERS: PCP Internal Medicine; Visit Provider Internal Medicine
DX: M47.26 Other spondylosis with radiculopathy, lumbar region (principal); M51.26 Other intervertebral disc displacement, lumbar region; M25.78 Osteophyte, vertebrae; M47.817 Spondylosis without myelopathy or radiculopathy, lumbosacral region
CPT/HCPCS: 72148

== ENCOUNTER → 2022-11-18 10:05 | Outpatient (BNVA) | payer MEDICARE, SELFPAY | PROVIDERS: PCP Internal Medicine; Visit Provider Nurse Practitioner Family | DX: I25.10 Atherosclerotic heart disease of native coronary artery without angina pectoris (principal); I11.9 Hypertensive heart disease without heart failure | CPT/HCPCS: 99214 ==

== ENCOUNTER 2022-11-25 14:40 | Outpatient (CLI) | payer MEDICARE, SELFPAY ==
--- NOTE | 2022-11-25 14:48 | XR_ITS ---
WS: [id number] PA and lateral chest, 11/25/2022 Clinical Data: COUGH Comparison: Portable chest, 10/27/2020 Findings: No nodules, masses or effusions are seen. The heart is normal. The pulmonary vascularity is not increased. No pneumonia or pneumothorax is seen. The aortic arch and descending thoracic aorta s how calcification and tortuosity. There is a slight dextroscoliosis. XR/XR chest 2V* [id number] Impression: Atherosclerosis.
== END 2022-11-25 14:41 | disposition home or self-care (01) ==
LOC: RAD 14:45
PROVIDERS: PCP Internal Medicine; Visit Provider Nurse Practitioner Family
DX: R05.9 Cough, unspecified (principal)
CPT/HCPCS: 71046

== ENCOUNTER → 2023-03-21 13:48 | Outpatient (BNVA) | payer MEDICARE, SELFPAY | PROVIDERS: PCP Internal Medicine; Visit Provider Internal Medicine Cardiovascular Disease | DX: R06.00 Dyspnea, unspecified (principal); I25.10 Atherosclerotic heart disease of native coronary artery without angina pectoris; Z98.61 Coronary angioplasty status; E78.5 Hyperlipidemia, unspecified; E03.9 Hypothyroidism, unspecified; I11.9 Hypertensive heart disease without heart failure; I25.9 Chronic ischemic heart disease, unspecified; Z79.82 Long term (current) use of aspirin | CPT/HCPCS: 99214 ==

== ENCOUNTER 2023-04-19 10:13 | Outpatient (CLI) | payer MEDICARE, SELFPAY ==
--- NOTE | 2023-04-19 | ECG_ITS ---
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 Interpretive Statements NAME OF STUDY: LEXISCAN SESTAMIBI STRESS TEST INDICATION: [Shortness of Breath on exertion ] PROCEDURE: At the baseline, the blood pressure was [148/68 mm Hg] with a heart rate of [74 bpm]. The electrocardiogram showed [sinus rhythm, normal axis]. T wave inversion in lead III, V3. Non specific ST depression in lead III, V3-V6. The Lexiscan was infused over a period of 20 seconds. A total of 0.4 milligrams of Lexiscan was infused. The stress phase was continued for a total of 5 minutes. Heart rate at the end of the stress phase was [99 bpm] with a blood pressure [of 150/81 mm Hg]. The EKG at the peak infusion revealed [sinus rhythm with 1/[address] depression in inferolateral leads not meeting crieteria for ischemia]. Sestamibi was injected 20 seconds after the Lexiscan infusion. Blood pressure at the end of the recovery phase was [150/81 mm Hg] with a heart rate of [95 beats] per minute. CONCLUSION: 1. No significant EKG changes with the LexiScan infusion. 2. No LexiScan induced chest pain or cardiac arrhythmia. 3. Normal blood pressure and heart rate response. 4. Sestamibi/sestamibi perfusion scan pending; see separate report. Electronically Signed On 04-26-2023 10:13:59 CDT by May Sainz M.D. [email or web address]
[2023-04-19 10:27] VITALS: BMI 32.8
--- NOTE | 2023-04-19 10:28 | NMCV_ITS ---
NM mile perf SPECT r/s* [id number] Bryson Orona Age: 67 Gender: F : 1955 Exam Date: 04/19/2023 10:28 Ordering Phys: Shari Dozier Technologist: MC Palmer Exam Location: [facility] Indications: ATHEROSCLEROTIC HEART DISEASE STRESS TEST Please see separate stress test report in [facility] for full findings IMAGE PROTOCOL Rest/Stress 1 Lexiscan Day Radiopharmaceutical Dose (mCi) Administration Site Administered by Rest: Tc-99m 10.7 IV MC Lopez Sestamibi Stress:Tc-99m 32.8 IV MC Lopez Sestamibi Rest: 19-Apr-2023 60 Discovery 630 Stress: 19-Apr-2023 30 Discovery 630 0.4mg Lexiscan. Images obtained in supine and prone position. SPECT RESULTS Technical Quality: Excellent Raw Data Analysis: Normal Image Corrections: No attenuation or motion correction applied Summed Stress Score: 4 Summed Rest Score: 4 Summed Difference Score: 2 PERFUSION FINDINGS Small area of moderately decreased tracer uptake in the mid inferolateral region with no significant reversibility. Increased tracer uptake was noted in the septal region FUNCTIONAL RESULTS (calculated via Gated SPECT) Stress Image LV EF (%): 71 Stress EDV (mL):86 TID: 1.17 Stress ESV (mL):25 FUNCTIONAL FINDINGS: Segmental wall motion analysis revealing no gross wall motion abnormalities The transient ischemic dilatation ratio was found to be slightly elevated to 1.17 IMPRESSIONS 1. Myocardial perfusion imaging revealing small area of moderately decreased persistent tracer uptake in the mid inferolateral region, suggesting myocardial scarring versus attrition artifact. 2. Normal LV ejection fraction 71%. 3. LV wall motion analysis revealing no gross wall motion abnormalities. 4. Normal LV volume 5. Features of LVH 6. Elevated transient ischemic dilatation ratio may suggest endocardial ischemia. But the positive predictive value of this finding is limited. Clinical correlation is recommended. Dr Jorge Sandoval MD FACC (Electronically Signed) Final Date: 19 April 2023 14:29 S
[2023-04-19] MEDS: regadenoson 0.4 Mg/5 ml Syringe IVP (12:02)
[2023-04-19 12:29] VITALS: BP 162/77; PULSE 96
== END 2023-04-19 10:14 | disposition home or self-care (01) ==
PROVIDERS: PCP Internal Medicine; Visit Provider Nurse Practitioner Family
DX: I25.10 Atherosclerotic heart disease of native coronary artery without angina pectoris (principal)
CPT/HCPCS: 36415; 78452; 93017; 96374; 99214; A9500; J2785

== ENCOUNTER 2023-06-28 15:24 | Oncology outpatient (recurring) (ONCR) | payer MEDICARE, SELFPAY | END 2023-07-23 23:59 | disposition home or self-care (01) | PROVIDERS: PCP Internal Medicine; Visit Provider Internal Medicine Medical Oncology | DX: D64.9 Anemia, unspecified (principal); D50.8 Other iron deficiency anemias; Z79.899 Other long term (current) drug therapy | CPT/HCPCS: 99214 ==

== ENCOUNTER 2023-07-12 08:18 | Inpatient (IN) | payer MEDICARE, SELFPAY ==
[2023-07-12] VITALS (101 sets, daily range): BP systolic 98–163; BP diastolic 58–107; PULSE 66–107; RESP 14–31; TEMP 36.6–37.1; O2SAT 80–100; BMI 33.6
--- NOTE | 2023-07-12 08:24 | ECG_ITS ---
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 Measurements Intervals [place] Rate: 75 P: 48 [place]: 128 QRS: -14 QRSD: 90 T: 0 QT: 391 QTc: 437 Interpretive Statements SINUS RHYTHM POSSIBLE RIGHT VENTRICULAR CONDUCTION DELAY [RSR (QR) IN V1/V2] Compared to ECG 10/27/2020 15:33:09 Sinus tachycardia no longer present ST (T wave) deviation no longer present Electronically Signed On 07-12-2023 11:05:23 NATURAL GAS PLANT SUPERVISOR by May Sainz M.D. [id number]
--- NOTE | 2023-07-12 08:25 | XRR_ITS ---
PROCEDURE INFORMATION: Exam: XR Chest Exam date and time: 07/12/2023 8:30 AM Age: 67 years old Clinical indication: Pain; Angina pectoris; Prior surgery; Surgery date: 6+ months; Surgery type: Cardiac stents; Patient HX: HX of hemotomochosis; Additional info: Chest pain TECHNIQUE: Imaging protocol: Radiologic exam of the chest. Views: 1 view. COMPARISON: CR XR chest 2V* [id number] 11/25/2022 2:49 PM FINDINGS: Lungs: Unremarkable. No consolidation. Pleural spaces: Unremarkable. No pleural effusion. No pneumothorax. Heart/Mediastinum: Heart size is upper limits of normal but stable. There are atherosclerotic changes in the aorta. Bones/joints: There are degenerative changes and scoliosis in the spine XR/XR chest 1V portable [id number] IMPRESSION: Heart upper limits of normal and stable. Negative for acute infiltrates. Negative for congestive heart failure
--- NOTE | 2023-07-12 08:27 | ED_ITS ---
HPI - Chest Pain 2 General: Chief Complaint: Chest Pain Stated Complaint: Chest Pain Time Seen by Provider: 07/12/23 08:20 Source: patient Mode of arrival: EMS History of Present Illness: 67-year-old female the known history of coronary disease presents to the emergency room with complaints of chest pain. She states she intermittently has chest pain throughout the night she would wake her up from sleep should you have chest pain 8 out of 10 she take a sublingual nitro and her pain would resolve. When later woke her up again she took another nitro it once again subsided. She had multiple episodes told nurse up to 8 of these episodes last night before she finally called the ambulance. She had a stress test in March of this year that showed an elevated transient ischemic dilation ratio but she has not had any follow-up on it and there was some abnormal uptake that was thought to be possibly scarring no clearly reversible areas. Is a Lexiscan sestamibi stress test on her chart here. She did radiation the pain into her neck as well as both of her upper extremities. On arrival here she has no chest pains no acute distress. She did have a angiogram in October [address] Gallardo placed a stent in the mid RCA at that time MD complaint: chest pain Pertinent past history: coronary artery disease Onset: during rest Pain location: left chest Pain radiation: right arm, left arm and neck Quality: aching and heaviness Relieving factors: nitroglycerin Exacerbating factors: nothing Associated symptoms: Deny abdominal pain, diaphoresis, dyspnea, fever(s), leg edema, nausea, palpitations, sense of impending doom, syncope or vomiting Risk Factors: Coronary artery disease risk factors: diabetes Thoracic aortic dissection risk factors: none Review of Systems 2 Const: Denies: fever(s), chills or diaphoresis Card: Reports: chest pain; Denies: palpitations, edema or syncope Resp: Denies: dyspnea GI: Denies: abdominal pain, nausea or vomiting : Denies: dysuria, urinary frequency or urinary urgency Musc: Denies: neck pain or back pain Skin/Breast: Denies: rash PFSH ED 2 PFSH: Medical History Hypertension Depression Hemochromatosis GERD (gastroesophageal reflux disease) Hypothyroidism Dyslipidemia H/O acute myocardial infarction Ischemic heart disease ASHD (arteriosclerotic heart disease) Diastolic dysfunction Surgical History S/P tonsillectomy S/P PTCA (percutaneous transluminal coronary angioplasty) Family History Mother Stroke Hyperlipidemia Hypertension CAD (coronary artery disease) Myocardial infarction Father CAD (coronary artery disease) Hypertension Myocardial infarction Sister Cancer BREAST Social History Smoking and tobacco/nicotine status: never used tobacco/nicotine Alcohol intake: never Substance/Drug Use: never Household members: spouse Marital status: Physical Exam 2 Const: GENERAL APPEARANCE: cooperative and comfortable O RIENTATION/CONSCIOUSNESS: Yes awake, Yes oriented to person, Yes oriented to place and Yes oriented to time HENMT: COMMON NORMALS: normocephalic, atraumatic and hearing grossly normal bilaterally HEAD & SCALP: normocephalic and atraumatic Resp: COMMON NORMALS: normal respiratory effort, No retractions, No use of accessory muscles and clear to auscultation bilaterally AUSCULTATION: clear to auscultation bilaterally Cardio: COMMON NORMALS: regular rate, regular rhythm and No murmurs present (Cardio) RATE: regular rate RHYTHM: regular rhythm GI: COMMON NORMALS: Soft to palpation and No hepatosplenomegaly present A USCULTATION: Yes normoactive bowel sounds PALPATION: Yes Soft to palpation, No Tenderness to palpation present (GI), No Guarding due to palpation present (GI) and Yes No hepatosplenomegaly present Extremity: COMMON NORMALS: normal to inspection, capillary refill normal, no clubbing, cyanosis or edema, no calf tenderness and no pedal edema Neuro: SENSORIUM/ORIENTATION: Yes oriented to person, Yes oriented to place and Yes oriented to time Skin: COMMON NORMALS: no rashes or lesions noted GENERAL SKIN EXAM: no rashes or lesions noted Course 2 Vital Signs: Vital signs: Vital Signs Temperature 98.8 F 07/12/23 08:22 Pulse Rate 70 07/12/23 10:05 Respiratory Rate 20 H 07/12/23 10:05 Blood Pressure 136/68 07/12/23 10:05 Pulse Oximetry 96 07/12/23 10:05 Oxygen Delivery Me thod Room Air 07/12/23 08:43 MDM - Chest Pain Medical Decision Making Unstable angina with recent equivocal cardiac stress test. Patient has not had any acute changes in her EKG and no chest pain at this time. She been started on topical Nitropaste as well as Lovenox. Admit with hospitalist. Consult cardiology Dr. Sandoval will see reviewed findings with the patient. Medical Records I reviewed the patient's medical records. Lab Data I reviewed the patient's lab results. 07/12/23 08:05 07/12/23 08:05 Radiology Impressions Chest X-Ray 07/12/23 08:25 IMPRESSION: Heart upper limits of normal and stable. Negative for acute infiltrates. Negative for congestive heart failure Laboratory Results WBC 10.01 10^3/uL (3.29-11.43) 07/12/23 08:05 RBC 4.89 10^6/uL (3.85-5.65) 07/12/23 08:05 Hgb 12.00 g/dL (11.27-16.99) 07/12/23 08:05 Hct 39.7 % (36-47) 07/12/23 08:05 MCV 81.2 fl (85-98) L 07/12/23 08:05 MCH 24.5 pg (27-33) L 07/12/23 08:05 MCHC 30.2 g/dL (30-55) 07/12/23 08:05 RDW 18.4 % (12.1-15.1) H 07/12/23 08:05 Plt Count 349 10^3/cmm (157-399) 07/12/23 08:05 MPV 10.0 fL (7.4-10.4) 07/12/23 08:05 Neut % (Auto) 69.3 % 07/12/23 08:05 Lymph % (Auto) 19.8 % 07/12/23 08:05 [place] % (Auto) 7.6 % 07/12/23 08:05 Eos % (Auto) 2.5 % 07/12/23 08:05 Baso % (Auto) 0.5 % 07/12/23 08:05 Neut # (Auto) 6.94 10^3/uL (1.8-7.7) 07/12/23 08:05 Lymph # (Auto) 2.0 10^3/uL (0.8-4.8) 07/12/23 08:05 [place] # (Auto) 0.8 10^3/uL (0.2-0.9) 07/12/23 08:05 Eos # (Auto) 0.3 10^3/uL (0.0-0.8) 07/12/23 08:05 Baso # (Auto) 0.1 10^3/uL (0.0-0.1) 07/12/23 08:05 Nucleated RBC % (auto) 0 % 07/12/23 08:05 Nucleated RBCs # 0.0 /100WBC 07/12/23 08:05 Sodium 136 mmol/L (136-145) 07/12/23 08:05 Potassium 3.9 mmol/L (3.5-5.1) 07/12/23 08:05 Chloride 99 mmol/L (98-107) 07/12/23 08:05 Carbon Dioxide 27 mmol/L (22-29) 07/12/23 08:05 Anion Gap 13.9 (5-19) 07/12/23 08:05 BUN 9 mg/dL (8-23) 07/12/23 08:05 Creatinine 0.9 mg/dL (0.5-0.9) 07/12/23 08:05 GFR Calculation 62.3 mL/min (90-130) L 07/12/23 08:05 Glucose 113 mg/dL (65-115) 07/12/23 08:05 Calculated Osmolality 281 mOsm/kg (285-295) L 07/12/23 08:05 Calcium 9.3 mg/dL (8.5-10.5) 07/12/23 08:05 Total Bilirubin 0.3 mg/dL (0.15-1.2) 07/12/23 08:05 AST 9 U/L (0-32) 07/12/23 08:05 ALT 20 U/L (0-33) 07/12/23 08:05 Alkaline Phosphatase 122 U/L (35-105) H 07/12/23 08:05 Troponin T Baseline 13 ng/L (0-10) H 07/12/23 08:05 Troponin T 120 Minute 13.11 ng/L (0-10) H 07/12/23 10:09 Delta Troponin T 0.11 ABS# (0-10) 07/12/23 10:09 Total Protein 6.8 g/dL (6.6-8.7) 07/12/23 08:05 Albumin 3.9 g/dL (3.5-5.2) 07/12/23 08:05 Globulin 2.9 g/dL (1.3-4.6) 07/12/23 08:05 All radiology interpretation(s) finalized by discharge Discharge Plan Discharge Admit Provider: Alex Dougherty Condition: Stable Coding Level of Care Code ED Clinical Athletic Instructor for Gustabo Franz
[2023-07-12 08:34] LABS: Basophils # 0.1 10^3/uL (0.0-0.1); Basophils % 0.5 %; Eosinophils # 0.3 10^3/uL (0.0-0.8); Eosinophils % 2.5 %; Hematocrit 39.7 % (36-47); Lymphocytes % 19.8 %; Mean Corpuscular HGB Conc 30.2 g/dL (30-55); Mean Corpuscular Hemoglobin 24.5 pg (27-33); Mean Corpuscular Volume 81.2 fl (85-98); Monocytes # 0.8 10^3/uL (0.2-0.9); Monocytes % 7.6 %; Neutrophils # 6.94 10^3/uL (1.8-7.7); Neutrophils % 69.3 %; Nucleated Red Blood Cells % 0 %; Platelet Count 349 10^3/cmm (157-399); Red Blood Count 4.89 10^6/uL (3.85-5.65); Red Cell Distribution Width 18.4 % (12.1-15.1); White Blood Count 10.01 10^3/uL (3.29-11.43)
--- NOTE | 2023-07-12 08:43 | PC.NURSE ---
Patient had a consistent good wave form on her oxygen saturation and it was 87% on room air. I spoke with Dr. Chavez and he told me to place the patient on 2 liters of oxygen. Patient does not normally wear oxygen at home.
[2023-07-12 08:56] LABS: Alanine Aminotransferase 20 U/L (0-33); Albumin Level 3.9 g/dL (3.5-5.2); Alkaline Phosphatase 122 U/L (35-105); Anion Gap 13.9 (5-19); Aspartate Amino Transferase 9 U/L (0-32); Blood Urea Nitrogen 9 mg/dL (8-23); Calcium 9.3 mg/dL (8.5-10.5); Carbon Dioxide 27 mmol/L (22-29); Chloride 99 mmol/L (98-107); Globulin 2.9 g/dL (1.3-4.6); Glomerular Filtration Rate 62.3 mL/min (90-130); Glucose 113 mg/dL (65-115); Osmolality Calculated 281 mOsm/kg (285-295); Potassium 3.9 mmol/L (3.5-5.1); Sodium 136 mmol/L (136-145); Total Bilirubin 0.3 mg/dL (0.15-1.2); Total Protein 6.8 g/dL (6.6-8.7)
[2023-07-12 08:58] LABS: Troponin(5th) Baseline 13 ng/L (0-10)
[2023-07-12] MEDS: enoxaparin 100 mg/mL Syringe 90 MG SUBCUT ×2 (09:16→21:42)
[2023-07-12] MEDS: nitroglycerin 1 gm/inch oint Pkt 1 INCH TOPICAL (09:17)
--- NOTE | 2023-07-12 10:28 | P.HP_ITS ---
Documented by User: Deng Lopez Kraustyrone 07/12/23 11:07 Providers/Chief Complaint 2 Admitting Physician: Alex Dougherty MD Primary Care Provider: Claudia Kong MD Chief Complaint: Chest Pain History of Present Illness Patient is a 67-year-old female with a past medical history of iron deficiency anemia, hypothyroidism, hypertension, previous PCI, CAD, diastolic dysfunction, ischemic heart disease who presents the emergency room with chest pain. Patient will be admitted to the hospital for further medical management of chest pain rule out. Patient reports that she woke up around midnight 07/12/23 with chest pain that radiated down both left and right arms, 8 out of 10 on pain scale. Reports pain characteristics of dull ache. At this time, patient states that she took 1 nitroglycerin with no relief and then took another nitroglycerin sublingual with relief and went back to sleep. States that she woke up again in a couple hours around 3 AM with same recurrent chest pain. Patient states that she took the same measures with sublingual nitroglycerin and reports that she administered 7 nitro in total over the couarse of chest pain events since midnight this a.m. Patient then called EMS. States that she has had an extensive history with PCI and stent placement. Recent stress test in March 2023 revealed an elevated transient ischemic dilation ratio but denies follow-up. Reports this chest pain symptoms occurs 1-2 times per year. She denies any nausea, vomiting, abdominal pain, bloody stools, or known ulcers. Upon assessment patient is chest pain- free at this time. Patient does report that she has some slight shortness of breath but correlates this to recent COVID-positive diagnosis approximately 3 weeks ago, although previous notes states shortness of breath has been ongoing for quite some time. While in the emergency room, laboratory studies and radiology imaging were performed and noted as below. Patient received 325 aspirin while in EMS, 1 inch nitroglycerin paste, Lovenox 90 mg subcu, Plavix 75 mg. Review of Systems 2 Narrative: Comprehensive 10 point ROS is negative except as noted in the HPI above. Medications/Allergies Home Medications Medication Instructions Recorded Confirmed Last Taken Type albuterol sulfate 90 mcg/actuation 2 puff inhalation Q6H PRN 12/30/19 07/12/23 Unknown History aerosol inhaler Shortness Of Breath cyclobenzaprine 10 mg tablet 10 mg PO BEDTIME 12/30/19 07/12/23 07/11/23 History levothyroxine 75 mcg tablet 75 mcg PO DAILY 12/30/19 07/12/23 07/11/23 History (Synthroid) duloxetine 60 mg capsule,delayed 60 mg PO BID 02/18/20 07/12/23 07/11/23 History release hydroxyzine HCl 25 mg tablet 100 mg PO BEDTIME 08/18/20 07/12/23 07/11/23 History pantoprazole 40 mg tablet,delayed 40 mg PO BID 08/18/20 07/12/23 07/11/23 History release aspirin 81 mg tablet,delayed 81 mg PO DAILY@10 10/27/20 07/12/23 07/11/23 History release nitroglycerin 0.4 mg sublingual 0.4 mg sublingual Q5M PRN Chest 11/18/22 07/12/23 Unknown Rx tablet (Nitrostat) Pain #25 tabs ropinirole 0.25 mg tablet 0.25 mg PO DAILY 11/18/22 07/12/23 07/11/23 History clopidogrel 75 mg tablet 75 mg PO DAILY #90 tabs 04/21/23 07/12/23 07/11/23 Rx metoprolol tartrate 50 mg tablet See Rx Instructions .Route 05/12/23 07/12/23 07/11/23 Rx .COMPLEX #180 tabs acetaminophen 500 mg capsule 500 mg PO Q6H PRN Pain 06/28/23 07/12/23 Unknown History melatonin 10 mg capsule 10 mg PO DAILY 06/28/23 07/12/23 07/11/23 History ferrous sulfate 325 mg (65 mg 325 mg PO DAILY 07/12/23 07/12/23 07/12/23 History iron) tablet (Iron (ferrous sulfate)) furosemide 20 mg tablet 20 mg PO DAILY PRN swelling 07/12/23 07/12/23 Unknown History potassium chloride 20 mEq 20 meq PO DAILY PRN with lasix 07/12/23 07/12/23 Unknown History tablet,extended release rosuvastatin 40 mg tablet 40 mg PO QPM 07/12/23 07/12/23 07/11/23 History Allergies Allergy/AdvReac Type Severity Reaction Status Date / Time ezetimibe [From Vytorin] Allergy Unknown Unknown Verified 07/12/23 09:13 trandolapril [From Odilo] Allergy hives Verified 07/12/23 09:13 PFSH Acute 2 PFSH: Medical History Hypertension Depression Hemochromatosis GERD (gastroesophageal reflux disease) Hypothyroidism Dyslipidemia H/O acute myocardial infarction Ischemic heart disease ASHD (arteriosclerotic heart disease) Diastolic dysfunction Surgical History S/P tonsillectomy S/P PTCA (percutaneous transluminal coronary angioplasty) Family History Mother Stroke Hyperlipidemia Hypertension CAD (coronary artery disease) Myocardial infarction Father CAD (coronary artery disease) Hypertension Myocardial infarction Sister Cancer BREAST Social History Smoking and tobacco/nicotine status: never used tobacco/nicotine Alcohol intake: never Substance/Drug Use: never Household members: spouse Marital status: Vitals/I&O/Wt Last Vital Signs Temp 98.8 F 07/12/23 08:22 Pulse 70 07/12/23 10:05 Resp 20 H 07/12/23 10:05 BP 136/68 07/12/23 10:05 Pulse Ox 96 07/12/23 10:05 O2 Del Method Room Air 07/12/23 08:43 Weight last 48 hrs Weight 86.183 kg Physical Exam 2 Narrative: General: Alert, able to answer questions appropriately, pleasant HEENT: Moist mucous membranes Neck: Supple Lymph: No lymphadenopathy Chest: Normal to inspection Respiratory: Even respirations, clear lungs per auscultation throughout, Cardiac: RRR, she has 2+ radial and dorsalis pedis bilateral, no murmurs GI: Active bowel sounds, nontender on palpation : Deferred Neuro: Alert and oriented x 4 Data 07/12/23 08:05 07/12/23 08:05 Other Labs: MCV 81.2, alk phos 122, troponin baseline 13 CXR: My impression: Cardiomegaly present and stable. No infiltrates noted. Radiologist's impression: Cardiomegaly, negative for acute infiltrates, negative for CHF. EKG 1: My Interpretation: Sinus rhythm, rate 75, no ST changes or depression. EKG computer-generated impression: Sinus rhythm, possible right ventricular conduction delay A&P Assessment and plan (1) Elevated troponin: Baseline troponin noted to be 13 today, 07/12/2023. Cardiology consultation. Patient well-known to cardiology clinic and follows Dr. Sainz. Recent stress test was completed on 04/19/2023 which revealed no significant EKG changes with Lexiscan infusion, no induced chest pain or cardiac arrhythmia, patient maintained a normal blood pressure and heart rate response, though continues to have shortness of breath. Extensive PCI history with stents placement as noted below. Recent cardiology note states: MOISES x1 to diagonal from 2003, MOISES x2 to distal RCA from 2013, MOISES to prox LAD and MOISES to mid LAD from 2014,? MOISES to mid RCA from 2020. We will continue to monitor and trend troponin levels Telemetry monitoring Sublingual nitroglycerin as needed. Patient received aspirin 325 while in EMS. Patient received Plavix 75 mg while in emergency room. Continue home statin. Maintain n.p.o. (2) Hypertension: Stable at this time. Monitor Continue home medication metoprolol. Qualifiers: Hypertension type: essential hypertension Qualified Code(s): I10 - Essential (primary) hypertension (3) Ischemic heart disease: As per #1. (4) Dyslipidemia: Continue home statin. (5) Hypothyroidism: Stable at this time. Continue levothyroxine. Qualifiers: Hypothyroidism type: unspecified Qualified Code(s): E03.9 - Hypothyroidism, unspecified (6) Other iron deficiency anemias: MCV noted to be 81.2. Continue home medication regiment of iron ferrous sulfate 325 p.o. daily. Plan Plan is stable. Continue to trend troponin levels and labs. Telemetry monitoring. Cardiology consultation. Will continue home medications of Plavix, aspirin, statin. Patient will be placed on Lovenox. CODE STATUS: Full code. DVT prophylaxis: Lovenox Coding Level of Care Code 64309 Diagnoses Elevated troponin R79.89 Essential hypertension I10 Hypertension type: essential hypertension Ischemic heart disease I25.9 Dyslipidemia E78.5 Hypothyroidism, unspecified type E03.9 Hypothyroidism type: unspecified Other iron deficiency anemias D50.8 Time Spent (min) 46 Documented by User: Alex Dougherty MD 07/12/23 12:36 Providers/Chief Complaint 2 Chief Complaint: Chest Pain Review of Systems 2 Card: Reports: chest pain Resp: Denies: dyspnea GI: Denies: abdominal pain, nausea, vomiting, hematemesis, hematochezia or melena Medications/Allergies Home Medications Medication Instructions Recorded Confirmed Last Taken Type albuterol sulfate 90 mcg/actuation 2 puff inhalation Q6H PRN 12/30/19 07/12/23 Unknown History aerosol inhaler Shortness Of Breath cyclobenzaprine 10 mg tablet 10 mg PO BEDTIME 12/30/19 07/12/23 07/11/23 History levothyroxine 75 mcg tablet 75 mcg PO DAILY 12/30/19 07/12/23 07/11/23 History (Synthroid) duloxetine 60 mg capsule,delayed 60 mg PO BID 02/18/20 07/12/23 07/11/23 History release hydroxyzine HCl 25 mg tablet 100 mg PO BEDTIME 08/18/20 07/12/23 07/11/23 History pantoprazole 40 mg tablet,delayed 40 mg PO BID 08/18/20 07/12/23 07/11/23 History release aspirin 81 mg tablet,delayed 81 mg PO DAILY@10 10/27/20 07/12/23 07/11/23 History release nitroglycerin 0.4 mg sublingual 0.4 mg sublingual Q5M PRN Chest 11/18/22 07/12/23 Unknown Rx tablet (Nitrostat) Pain #25 tabs ropinirole 0.25 mg tablet 0.25 mg PO DAILY 11/18/22 07/12/23 07/11/23 History clopidogrel 75 mg tablet 75 mg PO DAILY #90 tabs 04/21/23 07/12/23 07/11/23 Rx metoprolol tartrate 50 mg tablet See Rx Instructions .Route 05/12/23 07/12/23 07/11/23 Rx .COMPLEX #180 tabs acetaminophen 500 mg capsule 500 mg PO Q6H PRN Pain 06/28/23 07/12/23 Unknown History melatonin 10 mg capsule 10 mg PO DAILY 06/28/23 07/12/23 07/11/23 History ferrous sulfate 325 mg (65 mg 325 mg PO DAILY 07/12/23 07/12/23 07/12/23 History iron) tablet (Iron (ferrous sulfate)) furosemide 20 mg tablet 20 mg PO DAILY PRN swelling 07/12/23 07/12/23 Unknown History potassium chloride 20 mEq 20 meq PO DAILY PRN with lasix 07/12/23 07/12/23 Unknown History tablet,extended release rosuvastatin 40 mg tablet 40 mg PO QPM 07/12/23 07/12/23 07/11/23 History Allergies Allergy/AdvReac Type Severity Reaction Status Date / Time ezetimibe [From Vytorin] Allergy Unknown Unknown Verified 07/12/23 09:13 trandolapril [From Mavik] Allergy hives Verified 07/12/23 09:13 PFSH Acute 2 PFSH: Medical History Hypertension Depression Hemochromatosis GERD (gastroesophageal reflux disease) Hypothyroidism Dyslipidemia H/O acute myocardial infarction Ischemic heart disease ASHD (arteriosclerotic heart disease) Diastolic dysfunction Surgical History S/P tonsillectomy S/P PTCA (percutaneous transluminal coronary angioplasty) Family History Mother Stroke Hyperlipidemia Hypertension CAD (coronary artery disease) Myocardial infarction Father CAD (coronary artery disease) Hypertension Myocardial infarction Sister Cancer BREAST Social History Smoking and tobacco/nicotine status: never used tobacco/nicotine Alcohol intake: never Substance/Drug Use: never Household members: spouse Marital status: Data 07/12/23 08:05 07/12/23 08:05 A&P Assessment and plan (1) Elevated troponin: Baseline troponin noted to be 13 today, 07/12/2023. Await serial troponins Cardiology consultation. Patient well-known to cardiology clinic and follows Dr. Sainz. Recent stress test was completed on 04/19/2023 which revealed no significant EKG changes with Lexiscan infusion, no induced chest pain or cardiac arrhythmia, patient maintained a normal blood pressure and heart rate response, though continues to have shortness of breath. Extensive PCI history with stents placement as noted below. Recent cardiology note states: MOISES x1 to diagonal from 2004, MOISES x2 to distal RCA from 2013, MOISES to prox LAD and MOISES to mid LAD from 2014,? MOISES to mid RCA from 2020. We will continue to monitor and trend troponin levels Telemetry monitoring Nitroglycerin ointment Patient received aspirin 325 while in EMS. Patient received Plavix 75 mg while in emergency room. Continue home statin. Continue beta-dwight Anticoagulation with Lovenox Echocardiogram Telemetry (2) Hypertension: Qualifiers: Hypertension type: essential hypertension Qualified Code(s): I10 - Essential (primary) hypertension (3) Ischemic heart disease: (4) Dyslipidemia: (5) Hypothyroidism: Qualifiers: Hypothyroidism type: unspecified Qualified Code(s): E03.9 - Hypothyroidism, unspecified (6) Other iron deficiency anemias: MCV noted to be 81.2. Continue home medication regiment of iron ferrous sulfate 325 p.o. daily. Patient has been evaluated by hematology and has iron deficiency anemia, as well as hemochromatosis Attestations 2 Medical Necessity Statement*: Will need less than 2 midnight stay for evaluation and treatment of chest discomfort Diagnoses Elevated troponin R79.89 Essential hypertension I10 Hypertension type: essential hypertension Ischemic heart disease I25.9 Dyslipidemia E78.5 Hypothyroidism, unspecified type E03.9 Hypothyroidism type: unspecified Other iron deficiency anemias D50.8 Time Spent (min) 46
[2023-07-12 10:38] LABS: Troponin 5 2HR 13.11 ng/L (0-10); Troponin 5 2HR Delta 0.11 ABS# (0-10)
[2023-07-12] MEDS: clopidogrel 75 mg Tablet PO (10:51)
[2023-07-12] MEDS: sodium chloride 0.9% 1,000 ML 100 ML IV (10:51)
[2023-07-12] MEDS: ondansetron 2 mg/ML SDV 2 mL 4 MG IVP (10:55)
--- NOTE | 2023-07-12 11:08 | ECG_ITS ---
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 Measurements Intervals English Rate: 68 P: 31 DE: 142 QRS: -4 QRSD: 85 T: -2 QT: 399 QTc: 425 Interpretive Statements SINUS RHYTHM NONSPECIFIC T-WAVE ABNORMALITY Compared to ECG 07/12/2023 08:24:59 T-wave abnormality now present Electronically Signed On 07-12-2023 15:24:39 BELLY DUMP DRIVER by May Sainz M.D. [id number]
--- NOTE | 2023-07-12 11:44 | USCV_ITS ---
Bryson Orona Age: 67 Gender: F : 1955 Exam Date: 07/12/2023 12:13 Ordering Phys: Alex Dougherty MD Technologist: James Cruz Exam Location: [facility] [place] Indication: cp BP: 102 / 65 HR: 70 Rhythm: Sinus Technical Quality: Adequate MEASUREMENTS (Male / Female) Normal Values 2D ECHO LV Diastolic Diameter PLAX 2.8 cm 4.2 - 5.9 / 3.9 - 5.3 cm LV Systolic Diameter PLAX 2.1 cm IVS Diastolic Thickness 1.0 cm 0.6 - 1.0 / 0.6 - 0.9 cm IVS Systolic Thickness 1.5 cm LVPW Diastolic Thickness 1.2 cm 0.6 - 1.0 / 0.6 - 0.9 cm LVPW Systolic Thickness 1.5 cm LVOT Diameter 2.1 cm LV Ejection Fraction 2D Teich 51.4 % LV Ejection Fraction MOD 2C 62.0 % LV Ejection Fraction 2C AL 60.5 % LA Diameter 3.5 cm IVC Diameter 1.7 cm M-MODE Aortic Annulus Diameter 3.8 cm LA Ao Ratio MM 1.0 MV E Point Septal Separation 0.7 cm DOPPLER AV Peak Velocity 134.0 cm/s LVOT Peak Velocity 78.0 cm/s AV Area Cont Eq vti 1.8 cm squared AV Area Cont Eq pk 1.9 cm squared MV Area PHT 4.9 cm squared Mitral E to A Ratio 1.0 MV E' Velocity 34.5 cm/s Mitral E to MV E' Ratio 6.4 Mitral E to LV E' Lateral Ratio 6.7 Mitral E to LV E' Septal Ratio 6.0 TR Peak Velocity 184.3 cm/s TR Peak Gradient 13.6 mmHg TV Peak E Velocity 92.0 cm/s Right Atrial Pressure 3.0 mmHg Pulmonary Artery Systolic Pressu 16.6 mmHg FINDINGS Left Ventricle Normal LV size ejection fraction of 62%. Mild hypokinesia of the basal inferior wall segment. Mild concentric left- ventricular hypertrophy.Grade II/IV diastolic dysfunction, moderately elevated filling pressures. Right Ventricle The right ventricle is normal in size and function. Right Atrium The right atrium is normal in size. Left Atrium The left atrium is normal in size. Mitral Valve Thickened mitral valve. Aortic Valve No gross abnormalities noted Tricuspid Valve No gross abnormalities noted Pulmonic Valve No gross abnormalities noted Pericardium Normal pericardium without effusion. Aorta Normal ascending aorta dimension. IVC The inferior vena cava appears normal. CONCLUSIONS Normal LV size ejection fraction of 62%. Mild hypokinesia of the basal inferior wall segment. Mild concentric left-ventricular hypertrophy. Type II diastolic dysfunction. Thickened mitral valve Normal cardiac chamber sizes. There is no pericardial effusion. Compared to the study from 09/29/2017, there may not be a significant change Dr Jorge Sandoval MD FAC (Electronically Signed) Final Date: 13 July 2023 07:17 S
[2023-07-12 12:14] LABS: Thyroid Stimulating Hormone 2.15 uIU/mL (0.27-4.20)
--- NOTE | 2023-07-12 13:35 | P.CONIM_ITS ---
Providers/Reason For Consult 2 Consulting Physician/Specialty*: VIN Sandoval MD/cardiology Reason for Consult*: Patient with history of coronary disease and previous PCI, presenting with increasing episodes of chest pain Requesting Physician: Dr. Alex Dougherty Attending Physician: Alex Dougherty MD Primary Care Provider: Claudia Kong MD History of Present Illness History of Present Illness Bryson Orona is a 67 year old female with a history of coronary artery disease and multiple PCI's in the past, is present with complaints of recurrent episodes of chest pain since last night. This patient apparently has been in her baseline state of health up until 730 last evening when she started having chest pains. She described as a pressure- like pain of moderate to severe intensity in the mid substernal area, radiating to the neck, both shoulders and to the left arm. The intensity of the pain was 8/10. She may have some shortness of breath. No other associated symptoms or radiation of pain. She took 1 sublingual nitro which gave her relief of the symptoms within 10 minutes or so. Apparently she had a several of these episodes throughout the night. She took a total of 7 sublingual nitros through the night. This morning she woke up with chest pain. Because of the recurrent ongoing episodes of chest pains, she was brought to the hospital for further evaluation management. This patient had a first PCI in 2003 when she had a drug-eluting stent x 2 in the distal right coronary artery. In 2014, she had a drug-eluting stents placement in the proximal and mid LAD. The most recent intervention was in 2020 when she had PCI of the mid RCA lesion. According the patient, she has been doing okay following the last intervention with no significant chest pain or chest tightness. This patient has a history of dyslipidemia, hypothyroidism, reactive airway disease and? GERD. She has been compliant with medications. She has no history for diabetes, CVA or peripheral artery disease. No history for coronary disease , liver disease or bleeding disorders. She has not had recurrence of chest pain, since the hospital admission. At the time of my examination, patient is pain-free. She had a Myocardial perfusion imaging in March of this year in this hospital. She was found to have a small area of moderately decreased persistent tracer uptake in the inferolateral region with no evidence of ischemia. Review of Systems 2 Narrative: CONSTITUTIONAL: No fever or chills. EYES: No blurring of vision or other visual disturbances lately. ENT: No hoarseness of voice, auditory disturbances or sore throat. CARDIOVASCULAR: As mentioned above. RESPIRATORY: No significant cough. GASTROINTESTINAL: No hematemesis or melena. GENITOURINARY: History of GERD INTEGUMENTARY: No skin rashes or history of skin cancer. NEURO: No transient ischemic attacks or amaurosis. PSYCHIATRIC: No history of psychosis or major depression. HEMATOLOGIC: No bleeding disorders or significant anemia. ENDOCRINE: History of hypothyroidism MUSCULOSKELETAL: No recent joint pain or swelling. ALLERGY/IMMUNOLOGY: As mentioned above. Medications/Allergies Home Medications Medication Instructions Recorded Confirmed Last Taken Type albuterol sulfate 90 mcg/actuation 2 puff inhalation Q6H PRN 12/30/19 07/12/23 Unknown History aerosol inhaler Shortness Of Breath cyclobenzaprine 10 mg tablet 10 mg PO BEDTIME 12/30/19 07/12/23 07/11/23 History levothyroxine 75 mcg tablet 75 mcg PO DAILY 12/30/19 07/12/23 07/11/23 History (Synthroid) duloxetine 60 mg capsule,delayed 60 mg PO BID 02/18/20 07/12/23 07/11/23 History release hydroxyzine HCl 25 mg tablet 100 mg PO BEDTIME 08/18/20 07/12/23 07/11/23 History pantoprazole 40 mg tablet,delayed 40 mg PO BID 08/18/20 07/12/23 07/11/23 History release aspirin 81 mg tablet,delayed 81 mg PO DAILY@10 10/27/20 07/12/23 07/11/23 History release nitroglycerin 0.4 mg sublingual 0.4 mg sublingual Q5M PRN Chest 11/18/22 07/12/23 Unknown Rx tablet (Nitrostat) Pain #25 tabs ropinirole 0.25 mg tablet 0.25 mg PO DAILY 11/18/22 07/12/23 07/11/23 History clopidogrel 75 mg tablet 75 mg PO DAILY #90 tabs 04/21/23 07/12/23 07/11/23 Rx metoprolol tartrate 50 mg tablet See Rx Instructions .Route 05/12/23 07/12/23 07/11/23 Rx .COMPLEX #180 tabs acetaminophen 500 mg capsule 500 mg PO Q6H PRN Pain 06/28/23 07/12/23 Unknown History melatonin 10 mg capsule 10 mg PO DAILY 06/28/23 07/12/23 07/11/23 History ferrous sulfate 325 mg (65 mg 325 mg PO DAILY 07/12/23 07/12/23 07/12/23 History iron) tablet (Iron (ferrous sulfate)) furosemide 20 mg tablet 20 mg PO DAILY PRN swelling 07/12/23 07/12/23 Unknown History potassium chloride 20 mEq 20 meq PO DAILY PRN with lasix 07/12/23 07/12/23 Unknown History tablet,extended release rosuvastatin 40 mg tablet 40 mg PO QPM 07/12/23 07/12/23 07/11/23 History Allergies Allergy/AdvReac Type Severity Reaction Status Date / Time ezetimibe [From Vytorin] Allergy Unknown Unknown Verified 07/12/23 09:13 trandolapril [From Mavik] Allergy hives Verified 07/12/23 09:13 Current Medications Generic Name Dose Route Start Last Admin Trade Name Freq PRN Reason Stop Dose Admin Sodium Chloride 1,000 mls @ 75 mls/hr 07/12/23 10:33 07/12/23 10:51 Sodium Chloride 0.9% IV 100 mls/hr .[id number] STEPHANIE Administration Ondansetron HCl 4 mg 07/12/23 10:33 07/12/23 10:55 Ondansetron 2 Mg/Ml Sdv 2 Ml IVP 4 mg Q6H PRN Administration NAUSEA AND VOMITING PFSH Acute 2 PFSH: Medical History Hypertension Depression Hemochromatosis GERD (gastroesophageal reflux disease) Hypothyroidism Dyslipidemia H/O acute myocardial infarction Ischemic heart disease ASHD (arteriosclerotic heart disease) Diastolic dysfunction Surgical History S/P tonsillectomy S/P PTCA (percutaneous transluminal coronary angioplasty) Family History Mother Stroke Hyperlipidemia Hypertension CAD (coronary artery disease) Myocardial infarction Father CAD (coronary artery disease) Hypertension Myocardial infarction Sister Cancer BREAST Social History Smoking and tobacco/nicotine status: never used tobacco/nicotine Alcohol intake: never Substance/Drug Use: never Household members: spouse Marital status: Vitals/I&O/Wt Last Vital Signs Temp 98.8 F 07/12/23 08:22 Pulse 74 07/12/23 13:05 Resp 23 H 07/12/23 13:05 BP 130/75 07/12/23 13:05 Pulse Ox 95 07/12/23 13:05 O2 Del Method Room Air 07/12/23 08:43 Weight last 48 hrs Weight 190 lb Physical Exam 2 Narrative: GENERAL: The patient is alert and oriented times three. Not in any acute distress. HEENT: No significant pallor, icterus or lymphadenopathy.Oral cavity: There are no mucous membrane lesions. NECK: Trachea appears to be central. No masses noted. No JVD or thyromegaly appreciated. RESPIRATORY: Chest is symmetrical. No intercostals muscle retraction or any accessory muscle activation. There is no chest wall tenderness. Breath sounds are heard bilaterally. No rales or rhonchi heard. No evidence of any consolidation. BREASTS: Deferred. HEART: The heart sounds are normal. No S3 or S4. No significant murmurs. No pericardial rub ABDOMEN: No vessel pulsations or distention. No tenderness. No organomegaly appreciated. Bowel sounds are normally heard. : Deferred. RECTAL: Deferred. LYMPHATIC: No lymphadenopathy noted in the neck. EXTREMITIES: No edema or cyanosis. No clubbing. MUSCULOSKELETAL: No acute joint deformities or swelling SKIN: There are no significant rashes or ecchymosis NEUROPSYCHIATRIC: The patient is alert and oriented x3. Appears to be in a good mood. No tremors or rigidity noted. Data 07/13/23 04:50 07/13/23 04:50 Other Labs: Laboratory Last Values WBC 10.01 10^3/uL (3.29-11.43) 07/12/23 08:05 RBC 4.89 10^6/uL (3.85-5.65) 07/12/23 08:05 Hgb 12.00 g/dL (11.27-16.99) 07/12/23 08:05 Hct 39.7 % (36-47) 07/12/23 08:05 MCV 81.2 fl (85-98) L 07/12/23 08:05 MCH 24.5 pg (27-33) L 07/12/23 08:05 MCHC 30.2 g/dL (30-55) 07/12/23 08:05 RDW 18.4 % (12.1-15.1) H 07/12/23 08:05 Plt Count 349 10^3/cmm (157-399) 07/12/23 08:05 MPV 10.0 fL (7.4-10.4) 07/12/23 08:05 Neut % (Auto) 69.3 % 07/12/23 08:05 Lymph % (Auto) 19.8 % 07/12/23 08:05 Lucas % (Auto) 7.6 % 07/12/23 08:05 Eos % (Auto) 2.5 % 07/12/23 08:05 Baso % (Auto) 0.5 % 07/12/23 08:05 Neut # (Auto) 6.94 10^3/uL (1.8-7.7) 07/12/23 08:05 Lymph # (Auto) 2.0 10^3/uL (0.8-4.8) 07/12/23 08:05 Lucas # (Auto) 0.8 10^3/uL (0.2-0.9) 07/12/23 08:05 Eos # (Auto) 0.3 10^3/uL (0.0-0.8) 07/12/23 08:05 Baso # (Auto) 0.1 10^3/uL (0.0-0.1) 07/12/23 08:05 Nucleated RBC % (auto) 0 % 07/12/23 08:05 Nucleated RBCs # 0.0 /100WBC 07/12/23 08:05 Sodium 136 mmol/L (136-145) 07/12/23 08:05 Potassium 3.9 mmol/L (3.5-5.1) 07/12/23 08:05 Chloride 99 mmol/L (98-107) 07/12/23 08:05 Carbon Dioxide 27 mmol/L (22-29) 07/12/23 08:05 Anion Gap 13.9 (5-19) 07/12/23 08:05 BUN 9 mg/dL (8-23) 07/12/23 08:05 Creatinine 0.9 mg/dL (0.5-0.9) 07/12/23 08:05 GFR Calculation 62.3 mL/min (90-130) L 07/12/23 08:05 Glucose 113 mg/dL (65-115) 07/12/23 08:05 Calculated Osmolality 281 mOsm/kg (285-295) L 07/12/23 08:05 Calcium 9.3 mg/dL (8.5-10.5) 07/12/23 08:05 Total Bilirubin 0.3 mg/dL (0.15-1.2) 07/12/23 08:05 AST 9 U/L (0-32) 07/12/23 08:05 ALT 20 U/L (0-33) 07/12/23 08:05 Alkaline Phosphatase 122 U/L (35-105) H 07/12/23 08:05 Troponin T Baseline 13 ng/L (0-10) H 07/12/23 08:05 Troponin T 120 Minute 13.11 ng/L (0-10) H 07/12/23 10:09 Delta Troponin T 0.11 ABS# (0-10) 07/12/23 10:09 Total Protein 6.8 g/dL (6.6-8.7) 07/12/23 08:05 Albumin 3.9 g/dL (3.5-5.2) 07/12/23 08:05 Globulin 2.9 g/dL (1.3-4.6) 07/12/23 08:05 TSH 2.15 uIU/mL (0.27-4.20) 07/12/23 08:05 Other data: The EKG from today revealed Sinus rhythm with a diffuse nonspecific T wave changes. Myocardial perfusion imaging on 04/19/2023 1. Myocardial perfusion imaging revealing small area of moderately decreased persistent tracer uptake in the mid inferolateral region, suggesting myocardial scarring versus attrition artifact. 2. Normal LV ejection fraction 71%. 3. LV wall motion analysis revealing no gross wall motion abnormalities. 4. Normal LV volume 5. Features of LVH 6. Elevated transient ischemic dilatation ratio may suggest endocardial ischemia. But the positive predictive value of this finding is limited. Clinical correlation is recommended. Cardiac catheterization on 10/27/2020 LM has 0% stenosis. * LAD has 0% stenosis. * CX has 0% stenosis. * pRCA: Severe 99% stenosis, NENA: 3 flow. * Coronary angiography shows right dominance. A&P Assessment and plan (1) Atherosclerotic heart disease of [place] coronary artery with unstable angina pectoris: The patient's symptoms may suggest unstable angina. Currently there is no evidence of myocardial injury. EKG changes are nonspecific. She may be treated with a subcu Lovenox, beta-dwight, Plavix, aspirin and other symptomatic measures. An echocardiogram would be helpful to evaluate the LV function and rule out any other pathology. Qualifiers: [place] vs. transplanted heart: [place] heart Qualified Code(s): I25.110 - Atherosclerotic heart disease of [place] coronary artery with unstable angina pectoris (2) Dyslipidemia: May continue on the current medications. (3) Hypertension: Currently normotensive. May continue on the current medications. Qualifiers: Hypertension type: essential hypertension Qualified Code(s): I10 - Essential (primary) hypertension Plan Other problems are Hypothyroidism GERD Reactive airway disease The 6-hour troponin Ts pending. In view of the patient's ongoing recurrent episodes of chest pains, she may benefit from a cardiac catheterization to decide on further management. She had an unremarkable Myocardial perfusion imaging in March. Even in the past, her stress tests were unremarkable prior to the coronary interventions. Based on the clinical progress and the results of the above, further recommendations will be made. Thank for the opportunity to eval this patient and make this recommendation Consult Attestations 2 Medical Necessity Statement: Patient requires continued hospital stay for close monitoring and further management Coding Level of Care Code 17097 Diagnoses Atherosclerosis of [place] coronary artery of [place] heart with unstable angina pectoris I25.110 [place] vs. transplanted heart: [place] heart Dyslipidemia E78.5 Essential hypertension I10 Hypertension type: essential hypertension
--- NOTE | 2023-07-12 14:26 | ECG_ITS ---
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 Measurements Intervals [place] Rate: 70 P: 28 MO: 132 QRS: -3 QRSD: 98 T: -7 QT: 430 QTc: 465 Interpretive Statements SINUS RHYTHM WITH OCCASIONAL VENTRICULAR PREMATURE COMPLEXES NONSPECIFIC T-WAVE ABNORMALITY Compared to ECG 07/12/2023 11:08:46 Ventricular premature complex(es) now present T-wave abnormality still present Electronically Signed On 07-12-2023 15:22:44 TRANSFER AGENT by May Sainz M.D. [id number]
[2023-07-12] MEDS: nitroglycerin 1 gm/inch oint Pkt 0.5 INCH TOPICAL (17:58)
[2023-07-12] MEDS: atorvastatin 40 mg Tablet 80 MG PO (17:59)
[2023-07-12] MEDS: duloxetine 60 mg Capsule PO (17:59)
[2023-07-12] MEDS: pantoprazole DR 40 mg Tablet PO (17:59)
[2023-07-12] MEDS: metoprolol tartrate 50 mg Tablet PO (21:42)
[2023-07-13] VITALS (50 sets, daily range): BP systolic 103–141; BP diastolic 54–82; PULSE 64–82; RESP 12–28; TEMP 36.3–37.4; O2SAT 83–97
[2023-07-13] MEDS: sodium chloride 0.9% 1,000 ML 75 ML IV (00:24)
[2023-07-13] MEDS: acetaminophen 325 mg Tablet 650 MG PO ×2 (00:33→07:33)
[2023-07-13 05:05] LABS: Basophils % 0.5 %; Eosinophils # 0.4 10^3/uL (0.0-0.8); Eosinophils % 4.8 %; Hematocrit 33.1 % (36-47); Lymphocytes % 27.5 %; Mean Corpuscular HGB Conc 30.2 g/dL (30-55); Mean Corpuscular Hemoglobin 24.8 pg (27-33); Mean Corpuscular Volume 81.9 fl (85-98); Mean Platelet Volume 10.2 fL (7.4-10.4); Monocytes # 0.6 10^3/uL (0.2-0.9); Monocytes % 8.6 %; Neutrophils # 4.29 10^3/uL (1.8-7.7); Neutrophils % 58.5 %; Nucleated Red Blood Cells % 0 %; Platelet Count 251 10^3/cmm (157-399); Red Blood Count 4.04 10^6/uL (3.85-5.65); Red Cell Distribution Width 18.5 % (12.1-15.1); White Blood Count 7.34 10^3/uL (3.29-11.43)
[2023-07-13 05:37] LABS: Alanine Aminotransferase 14 U/L (0-33); Albumin Level 3.3 g/dL (3.5-5.2); Alkaline Phosphatase 105 U/L (35-105); Aspartate Amino Transferase 9 U/L (0-32); Blood Urea Nitrogen 9 mg/dL (8-23); Calcium 8.6 mg/dL (8.5-10.5); Carbon Dioxide 24 mmol/L (22-29); Chloride 106 mmol/L (98-107); Glomerular Filtration Rate 71.3 mL/min (90-130); Glucose 101 mg/dL (65-115); Osmolality Calculated 289 mOsm/kg (285-295); Sodium 140 mmol/L (136-145); Total Bilirubin 0.3 mg/dL (0.15-1.2); Total Protein 5.3 g/dL (6.6-8.7)
[2023-07-13 05:39] LABS: Anion Gap 14.3 (5-19); Potassium 4.3 mmol/L (3.5-5.1)
--- NOTE | 2023-07-13 07:09 | XACV_ITS ---
Exam Room: [facility] Ht: 160 cm Wt: 87 kg BSA: 2.00 m2 Gender: Female : 1955 Any Known Allergies: Other Exam Priority: Routine Indication(s): - Unstable angina Procedure(s): Procedure Description: Diagnostic procedure Procedure Description: PCI procedure Procedure Description: Left Heart Catheterization Procedure Description: Coronary IVUS Procedure Description: Drug Eluting Coronary Stent Procedure Description: Miscellaneous Procedure Description: ACT Procedure Description: Coronary Angiography Jaime MATUTE; Diagnostic Cath Status: Urgent Diagnostic Findings * The left main is a medium caliber vessel with no significant stenotic lesions. * The left anterior descending artery is a medium caliber vessel which appears to wrap around the LV apex minimally. The proximal LAD was found to have a tubular narrowing of around 70 to 80% extending from near to the ostium to the proximal stented segment. The proximal to mid segment of the artery was found to be stented and is widely patent. The first diagonal branch is a small to medium caliber vessel which was found to have tubular narrowing of around 30 to 40% proximally. * The circumflex artery is a medium caliber nondominant vessel which was found to have proximal elongated 20 to 30% narrowing. No significant stenotic lesions were noted. There is a small high obtuse marginal branch which was found to have around 20 to 30% tubular narrowing. * The right coronary artery is a medium caliber dominant vessel which was found to an elongated stented segment of the proximal and mid region. There was minimal in-stent narrowing. The PDA and the PLV branches are found to have minimal intimal irregularities with no significant stenotic lesions. PCI Status: Urgent PCI Indication: Other Interventional Findings * Procedure Detail: We engaged the left main artery with XB 3.0 guide catheter. IV heparin was administered to maintain anticoagulation. Patient had severe ISR of the proximal segment of the LAD stent and it extended to [place] artery proximally as well. 0.014 run-through guidewire was used to cross the stenosis and was put in distal LAD. We then performed IVUS. IVUS showed underexpanded proximal to mid LAD stent with MSA of 2.5 mm2 and was the reason for instent restenosis. Proximal to stent, vessel MLA was 3 mm2. We then predilated stenosis with 3.0 x 12 mm NC balloon. This was followed by placement of 3.0 x 26 mm resolute [place] drug-eluting stent. We then postdilated the stent with 3.0 x 12 mm NC balloon. Repeat IVUS was performed. It showed good expansion of the stent. Final angiogram was performed that showed excellent stent expansion, no residual stenosis and NENA-3 flow. Guidewire and guide catheter were removed. Patient left the [employer] in stable condition.. * Proximal Left Anterior Descendin-80% stenosis treated with a MDT NC EUPHORA RX [id number] BALLOON, and MDT R JERICHO 3.0X26 MOISES. 0% residual stenosis, NENA: 3 flow. Conclusions 1. 67-year-old white female with history of atherosclerotic heart disease and multiple previous PCI, presenting with increasing episodes of chest pain suggesting accelerated angina. For further management of her condition, a cardiac catheterization was recommended. Patient underwent left heart catheterization with left and right coronary angiogram today. The findings are as follows. 2. Left main has no significant stenotic lesion. There is a high-grade proximal LAD lesion of around 70 to 80%, involving the proximal end of the stented segment of the artery. The circumflex artery was found to have no significant stenotic lesions. The right coronary artery was found to have patent stented segment in the proximal to mid regions. Minimal in-stent narrowing was noted. Mild diffuse disease was noted in the other vessels. LVEDP 21 mmHg. Based on the angiogram findings, it was thought to be appropriate to consider PCI of the proximal LAD lesion. I discussed and reviewed the cardiac catheterization data with the Dr. Pérez. Dr. Pérez concurred with this plan and took over further management of this patient. 3. S/p Successful revascularization of proximal LAD with 1 stent. 4. Proximal Left Anterior Descending was treated with a Balloon, and Drug Eluting Stent. Recommendations * Dual antiplatelet therapy with aspirin and plavix. * High intensity statin therapy. * Outpatient cardiology follow up in 2-4 weeks. Interventional RX Recommendation: PCI w/o planned CABG Diagnostic RX Recommendation: PCI w/o planned CABG Anticoagulation: Heparin LV EDP: 21 mmHg Left Ventriculography Findings: * The LV gram was not performed because of the concern about the dye overload. LVEDP was 21 mmHg. Pressures Phase:Rest AO : / ( 0 ) @ 8:28:00 AM 141 / 72 ( 104 ) @ 8:52:00 AM 149 / 77 ( 109 ) @ 8:52:00 AM 153 / 72 ( 110 ) @ 8:52:00 AM 124 / 78 ( 100 ) @ 9:07:00 AM LV : 145 / 8 / 21 @ 8:52:00 AM 146 / 4 / 21 @ 8:52:00 AM Valves Phase:DefaultPhase AV : 0.0 @ 9:30:14 AM AV Mean Gradient: 0.0 @ 9:30:14 AM 0.0 @ 9:30:14 AM Clinical Evaluation EBL: 5mL-10mL Procedural Details Procedure Consent Obtained. Admit Source: In Patient. Pre-Procedure Time Out. Identified patient by full name and date of as verbalized by the patient/guarantor. Does the consent match the physician's order: Yes. Accurate & Complete Informed Consent: Yes. Inpatient/Outpatient History & Physical on Chart: Yes. If H&P is completed, is and addenduem needed: No; If yes, is the addendum complete: N/A. Visualize and Verify Site with Patient/Guarantor: N/A. Relevant Radiology Images available: N/A. The risks, benefits, and alternatives of sedation and/or procedure were discussed by physician. The patient agrees to continue. Procedure started. [facility] Clinical Fraility Score: 3: Managing Well. [employer] Indications: Worsening Angina. Chest Pain Symptom Assessment: Typical Angina Symptoms. Cardiovascular Instability: No, stable. Correct patient, site and procedure confirmed by cath team. PERRLA. Strong, equal hand employee service officer bilaterally. Lungs clear x 5 lobes. IV Site on Arrival: 20 gauge in the left anticubital. IV Fluids: 0.9% NaCl at KVO. 500 mL infused prior to catheter builder. Pre Procedural Pulses: bilateral posterior tibial was Doppled. Pre Procedural Pulses: bilateral dorsalis pedis was Doppled. Pre Procedural Pulses: bilateral radial was 3+. Oxygen started at 3liters/min via nasal canula. right groin was prepped with chloroprep then draped in the usual sterile fashion. right radial was prepped with chloroprep then draped in the usual sterile fashion. Physician notified. Baseline sample Acquired. HR: 88 BPM. Current diagnosis: Unstable angina. Physician arrived. Physician scrubbed in. Immediate Pre-Procedure Time Out. Correct Patient: Yes; Correct Procedure: Yes; Correct Site: Yes; Correct Patient Position: Yes; Correct Supplies: Yes; Dried Flammable Prep: Yes; Blood Products Available: N/A;. Lidocaine 1% infiltrated to the right radial. Current Diagnosis : Unstable angina. Arterial access obtained. A 5 burundian Johann catheter in over wire. Multiple views taken of left coronary artery. Catheter removed over the exchange wire. A 5 burundian JR4 catheter in over wire. Multiple views taken of right coronary artery. Catheter dropped into LV over the wire. EDP Sample taken: LV 145/8,21; HR: 93 BPM; SpO2: 94%. Pullback taken: LV 146/4,21; AO 141/72(104); Mean: 0mmHg, Peak to Peak: 0mmHg, SEP: 9sec/min; HR: 101 BPM; SpO2: 94%. Catheter removed over the exchange wire. Side port of sheath attached to Normal Saline flush at KVO to maintain patency. Physician review of cine films. Dr Pérez notified. Dr Pérez arrived. Physician scrubbing in. ACT drawn. Results 235 seconds. Therapeutic limits - pre-heparin administration 90-150 seconds and monitoring heparin during a vascular procedure >[address] Sandoval Scrubbed out. 6 burundian XB 3 guide catheter was inserted over the wire. Guide seated in the LCS. Runthrough guidewire was advanced through the guide catheter to lesion in the prox LAD. Guidewire advanced across lesion. IVUS Catheter inserted. IVUS performed of proximal lad. IVUS catheter removed. Inflation number : 1 A MDT NC EUPHORA RX [id number] BALLOON was prepped and advanced across the Prox LAD , then inflated to 12 JAMIE for 0:12 seconds. Inflation number: 2 The MDT NC EUPHORA RX 3.81U75DV BALLOON was reinflated across the Prox LAD, to 20 JAMIE for 0:12 seconds. Inflation number: 3 The MDT NC EUPHORA RX 3.92K40RH BALLOON was reinflated across the Prox LAD, to 20 JAMIE for 0:08 seconds. Results checked. Balloon out. Inflation Number : 4 A MDT R JERICHO 3.0X26 MOISES -Lot Number# [id number] was prepped and advanced across the Prox LAD. The stent was deployed at 12 JAMIE for 0:22 seconds. EXP 06-12-24. Stent balloon out over wire. Results checked. IVUS Catheter inserted. IVUS catheter removed. Inflation number: 5 The MDT NC EUPHORA RX 3.59J36ES BALLOON was reinflated across the Prox LAD, to 18 JAMIE for 0:11 seconds. Inflation number: 6 The MDT NC EUPHORA RX 3.50S51FP BALLOON was reinflated across the Prox LAD, to 14 JAMIE for 0:07 seconds. Inflation number: 7 The MDT NC EUPHORA RX 3.63U74YS BALLOON was reinflated across the Prox LAD, to 22 JAMIE for 0:12 seconds. Balloon out. Results checked. Wire out. Results checked. Guide catheter removed. ACT drawn. Results 348 seconds. Therapeutic limits - pre-heparin administration 90-150 seconds and monitoring heparin during a vascular procedure >250 seconds. Physician review of films. Physiciain scrubbed out. A TR Band was successful obtaining hemostatsis at the Right Radial artery insertion site. TR band placed. Hemostasis obtained. PERRLA. Strong, equal hand employee service officer bilaterally. No VTE prophylaxis required. Medication waste. Lido- 8 ml. Nitro- 49.7 mg. Heparin- 3000 units. Versed- 1 mg. Fentanyl- 50 mcg. Total IV fluids: 68 mL. Fluoro: 10:07. Contrast type used: Omnipaque 300 mgI/mL, 500 mL bottle. [id number]. Post-op diagnosis: Severe Proximal LAD stenosis; Status post DESx1. Complications: None. Estimated blood loss: 5mL-10mL. Responsiveness - Normal response to verbal stimuli; alert and oriented, PERRLA. Airway - Unaffected, no intervention required; spontaneous ventilation. Circulation: W/N/L, pulses unchanged. Nausea/Vomiting: No. Procedure completed. Patient transferred by bed to 1st floor. Vital chart was stopped. Access Site Site: Right Radial artery Sheath Size: 6 Fr Hemostasis Method: TR Band Hemostasis Success: Successful Procedure Medications Start: 8:33 AM Stop: 8:33 AM Medication: Versed Amount: 1 mg Route: I.V. Start: 8:34 AM Stop: 8:34 AM Medication: Fentanyl Amount: 50 mcg Route: I.V. Start: 8:41 AM Stop: 8:41 AM Medication: Nitrogylcerin Amount: 200 mcg Route: I.A. Start: 8:41 AM Stop: 8:41 AM Medication: Verapamil Amount: 5 mg Route: I.A. Start: 8:43 AM Stop: 8:43 AM Medication: Heparin Amount: 4000 units Route: I.V. Start: 8:58 AM Stop: 8:58 AM Medication: Nitrogylcerin Amount: 100 mcg Route: I.A. Start: 8:58 AM Stop: 8:58 AM Medication: Heparin Amount: 4000 units Route: I.V. Start: 9:12 AM Stop: 9:12 AM Medication: Aspirin Amount: 325 mg Route: P.O. Start: 9:12 AM Stop: 9:12 AM Medication: Plavix Amount: 300 mg Route: P.O. I, the attending physician, have reviewed and verified all procedure medications. Yes, all medications given per verbal order History/Risk Factors Hypertension: Yes Dyslipidemia: Yes Peripheral Arterial Disease (PAD): No Myocardial Infarction (DC): Yes Renal Disease: No Tobacco Use: Never Prior Interventions PCI: Yes CABG: No Valve Surgery: No Date of PCI: 10/27/2020 Report Signatures Interventional Workflow Finalized by Nehemias Pérez MD on 07/16/2023 03:19 PM Diagnostic Workflow Finalized by Dr Jorge Sandoval MD [facility] on 07/15/2023 10:47 AM
[2023-07-13] MEDS: sodium chloride 0.9% 1,000 ML 50 ML IV (07:34)
[2023-07-13] MEDS: diphenhydrAMINE 50 mg Capsule PO (07:34)
--- NOTE | 2023-07-13 08:14 | P.PN_ITS ---
Subjective 2 Subjective: The patient is feeling okay. No chest pain or shortness of breath. Vitals normal and stable. No arrhythmias on the monitor. Medications: Medication Review Details: L Current Medications Acetaminophen (Acetaminophen 325 Mg Tablet) 650 mg PO Q6H PRN PRN Reason: Mild/Mod Pain Or Temp >/= 101 Last Admin: 07/13/23 07:33 Dose: 650 mg Aspirin (Aspirin 81 Mg Ec Tablet) 81 mg PO DAILY@10 STEPHANIE Atorvastatin Calcium (Atorvastatin 40 Mg Tablet) 80 mg PO QPM [facility] Last Admin: 07/12/23 17:59 Dose: 80 mg Clopidogrel Bisulfate (Clopidogrel 75 Mg Tablet) 75 mg PO DAILY [facility] Duloxetine HCl (Duloxetine 60 Mg Capsule) 60 mg PO BID [facility] Last Admin: 07/12/23 17:59 Dose: 60 mg Enoxaparin Sodium (Enoxaparin 100 Mg/Ml Syringe) 90 mg 1 mg/kg (90 mg) SUBCUT Q12H [facility] Last Admin: 07/12/23 21:42 Dose: 90 mg Sodium Chloride (Sodium Chloride 0.9%) 1,000 mls @ 75 mls/hr IV .[id number] [facility] Last Admin: 07/13/23 00:24 Dose: 75 mls/hr Sodium Chloride (Sodium Chloride 0.9%) 1,000 mls @ 50 mls/hr IV .Q20H ONE Stop: 07/14/23 03:29 Last Admin: 07/13/23 07:34 Dose: 50 mls/hr Levothyroxine Sodium (Levothyroxine 75 Mcg Tablet) 75 mcg PO DAILY [facility] Metoprolol Tartrate (Metoprolol Tartrate 50 Mg Tablet) 50 mg PO Q12H [facility] Last Admin: 07/12/23 21:42 Dose: 50 mg Nitroglycerin (Nitroglycerin 1 Gm/Inch Oint Pkt) 0.5 inch TOPICAL Q6H [facility] Last Admin: 07/13/23 06:21 Dose: Not Given Ondansetron HCl (Ondansetron 2 Mg/Ml Sdv 2 Ml) 4 mg IVP Q6H PRN PRN Reason: NAUSEA AND VOMITING Last Admin: 07/12/23 10:55 Dose: 4 mg Pantoprazole Sodium (Pantoprazole Dr 40 Mg Tablet) 40 mg PO BID [facility] Last Admin: 07/12/23 17:59 Dose: 40 mg Ropinirole HCl (Ropinirole 0.25 Mg Tablet) 0.25 mg PO DAILY STEPHANIE Vitals/I&O/Wt Last Vital Signs Temp 98.2 F 07/13/23 03:58 Pulse 70 07/13/23 06:00 Resp 18 07/13/23 03:58 BP 113/54 07/13/23 03:58 Pulse Ox 91 07/13/23 03:58 O2 Del Method Nasal Cannula 07/13/23 03:58 O2 Flow Rate 2 07/13/23 03:58 07/12/23 07/13/23 07/13/23 22:59 06:59 14:59 Intake Total 1360 / 1360 Balance 1360 / 1360 Weight last 48 hrs Weight 192 lb 4 oz Weight 189 lb 8 oz Weight 190 lb Weight 190 lb Physical Exam 2 Narrative: GENERAL: The patient is alert and oriented times three. Not in any acute distress. HEENT: No significant pallor, icterus or lymphadenopathy.Oral cavity: There are no mucous membrane lesions. NECK: Trachea appears to be central. No masses noted. No JVD or thyromegaly appreciated. RESPIRATORY: Chest is symmetrical. No intercostals muscle retraction or any accessory muscle activation. There is no chest wall tenderness. Breath sounds are heard bilaterally. No rales or rhonchi heard. No evidence of any consolidation. BREASTS: Deferred. HEART: The heart sounds are normal. No S3 or S4. No significant murmurs. No pericardial rub ABDOMEN: No vessel pulsations or distention. No tenderness. No organomegaly appreciated. Bowel sounds are normally heard. : Deferred. RECTAL: Deferred. LYMPHATIC: No lymphadenopathy noted in the neck. EXTREMITIES: No edema or cyanosis. No clubbing. MUSCULOSKELETAL: No acute joint deformities or swelling SKIN: There are no significant rashes or ecchymosis NEUROPSYCHIATRIC: The patient is alert and oriented x3. Appears to be in a good mood. No tremors or rigidity noted. Data 07/13/23 04:50 07/13/23 04:50 Other Labs: Laboratory Last Values WBC 7.34 10^3/uL (3.29-11.43) 07/13/23 04:50 RBC 4.04 10^6/uL (3.85-5.65) 07/13/23 04:50 Hgb 10.00 g/dL (11.27-16.99) L 12/21/23 04:50 Hct 33.1 % (36-47) L 07/13/23 04:50 MCV 81.9 fl (85-98) L 07/13/23 04:50 MCH 24.8 pg (27-33) L 07/13/23 04:50 MCHC 30.2 g/dL (30-55) 07/13/23 04:50 RDW 18.5 % (12.1-15.1) H 07/13/23 04:50 Plt Count 251 10^3/cmm (157-399) 07/13/23 04:50 MPV 10.2 fL (7.4-10.4) 07/13/23 04:50 Neut % (Auto) 58.5 % 07/13/23 04:50 Lymph % (Auto) 27.5 % 07/13/23 04:50 [place] % (Auto) 8.6 % 07/13/23 04:50 Eos % (Auto) 4.8 % 07/13/23 04:50 Baso % (Auto) 0.5 % 07/13/23 04:50 Neut # (Auto) 4.29 10^3/uL (1.8-7.7) 07/13/23 04:50 Lymph # (Auto) 2.0 10^3/uL (0.8-4.8) 07/13/23 04:50 [place] # (Auto) 0.6 10^3/uL (0.2-0.9) 07/13/23 04:50 Eos # (Auto) 0.4 10^3/uL (0.0-0.8) 07/13/23 04:50 Baso # (Auto) 0.0 10^3/uL (0.0-0.1) 07/13/23 04:50 Nucleated RBC % (auto) 0 % 07/13/23 04:50 Nucleated RBCs # 0.0 /100WBC 07/13/23 04:50 Sodium 140 mmol/L (136-145) 07/13/23 04:50 Potassium 4.3 mmol/L (3.5-5.1) 07/13/23 04:50 Chloride 106 mmol/L (98-107) 07/13/23 04:50 Carbon Dioxide 24 mmol/L (22-29) 07/13/23 04:50 Anion Gap 14.3 (5-19) 07/13/23 04:50 BUN 9 mg/dL (8-23) 07/13/23 04:50 Creatinine 0.8 mg/dL (0.5-0.9) 07/13/23 04:50 GFR Calculation 71.3 mL/min (90-130) L 07/13/23 04:50 Glucose 101 mg/dL (65-115) 07/13/23 04:50 Calculated Osmolality 289 mOsm/kg (285-295) 07/13/23 04:50 Calcium 8.6 mg/dL (8.5-10.5) 07/13/23 04:50 Total Bilirubin 0.3 mg/dL (0.15-1.2) 07/13/23 04:50 AST 9 U/L (0-32) 07/13/23 04:50 ALT 14 U/L (0-33) 07/13/23 04:50 Alkaline Phosphatase 105 U/L (35-105) 07/13/23 04:50 Troponin T Baseline 13 ng/L (0-10) H 07/12/23 08:05 Troponin T 120 Minute 13.11 ng/L (0-10) H 07/12/23 10:09 Delta Troponin T 0.11 ABS# (0-10) 07/12/23 10:09 Troponin T Hi Sens 6Hr 13.30 ng/L (0-10) H 07/12/23 14:05 Troponin T Hi Sens 6Hr Delta 0.30 ng/L (0-12) 07/12/23 14:05 Total Protein 5.3 g/dL (6.6-8.7) L D 07/13/23 04:50 Albumin 3.3 g/dL (3.5-5.2) L 07/13/23 04:50 Globulin 2.0 g/dL (1.3-4.6) 07/13/23 04:50 TSH 2.15 uIU/mL (0.27-4.20) 07/12/23 08:05 Other data: The echocardiogram from yesterday reviewed Normal LV size ejection fraction of 62%. Mild hypokinesia of the basal inferior wall segment. Mild concentric left-ventricular hypertrophy. Type II diastolic dysfunction. Thickened mitral valve Normal cardiac chamber sizes. There is no pericardial effusion. Compared to the study from 09/29/2017, there may not be a significant change A&P Assessment and plan (1) Atherosclerotic heart disease of [place] coronary artery with unstable angina pectoris: The patient's symptoms may suggest unstable angina. Currently there is no evidence of myocardial injury. EKG changes are nonspecific. The echocardiogram revealed mild hypokinesia of the inferior wall segment. Normal overall LV ejection fraction. In view of the patient's unstable symptoms, in order to further evaluate the coronary status, she requires a cardiac catheterization. Qualifiers: [place] vs. transplanted heart: [place] heart Qualified Code(s): I25.110 - Atherosclerotic heart disease of [place] coronary artery with unstable angina pectoris (2) Dyslipidemia: May continue on the current medications. (3) Hypertension: Currently normotensive. May continue on the current medications. Qualifiers: Hypertension type: essential hypertension Qualified Code(s): I10 - Essential (primary) hypertension Plan Other problems are Hypothyroidism GERD Reactive airway disease The risks and benefits of the cardiac catheterization were discussed with the patient. The risk of bleeding, hematoma, vascular injury, myocardial infarction, myocardial perforation, malignant cardiac arrhythmias ,CVA, renal failure and other concomitant complications were explained in detail. Patient understood this well and consented to proceed. Will go ahead and schedule this test this morning. Based on the results, further management decisions will be made Attestations 2 Medical Necessity Statement*: Patient requires continued hospital stay for close monitoring and further management Coding Level of Care Code 64715 Diagnoses Atherosclerosis of [place] coronary artery of [place] heart with unstable angina pectoris I25.110 [place] vs. transplanted heart: [place] heart Dyslipidemia E78.5 Essential hypertension I10 Hypertension type: essential hypertension
--- NOTE | 2023-07-13 08:15 | W.PM.OPSUD ---
Surgery/Procedure H&P Update DATE OF PROCEDURE: July 13, 2023 DATE H&P PERFORMED: 07/12/23 H&P UPDATE INFORMATION: I have reviewed H&P completed within last 30 days, I have examined patient prior to procedure and No changes to prior documentation PREOP DIAGNOSIS: ASHD/unstable angina PRIMARY INDICATION FOR PROCEDURE: Patient with multiple PCI's in the past, presenting with increasing episodes of chest pain. Unremarkable Myocardial perfusion imaging, few months ago PLANNED PROCEDURE: Operation Date: 07/13/23 08:30 Proposed Procedures p Cardiac Catheterization(Not Applicable) - Jorge Sandoval MD PATIENT REASSESSED PRIOR TO SEDATION, WITH NO CHANGE NOTED: Yes PHYSICAL EXAM: alert, oriented x 3, clear to auscultation bilaterally and regular rate & rhythm AIRWAY EVAL/ANESTHESIA PLAN: normal airway, see other exam findings, ASA III, Monitored Anesthesia, Local Anesthesia, Risks, benefits & alternatives of sedation and/or procedure discussed and Patient agrees to continue as planned
--- NOTE | 2023-07-13 08:40 | P.PN_ITS ---
Documented by User: tyrone Kruse 07/13/23 09:03 Subjective 2 Subjective: Patient was evaluated this morning while lying in bed on room air. Patient denies any chest pain at this time. No acute events overnight noted. Patient remained n.p.o. after midnight for left heart cath today. No other complaints at this time. Medications: Reviewed: Yes Vitals/I&O/Wt Last Vital Signs Temp 98.2 F 07/13/23 03:58 Pulse 70 07/13/23 06:00 Resp 18 07/13/23 03:58 BP 113/54 07/13/23 03:58 Pulse Ox 91 07/13/23 03:58 O2 Del Method Nasal Cannula 07/13/23 03:58 O2 Flow Rate 2 07/13/23 03:58 07/12/23 07/13/23 07/13/23 22:59 06:59 14:59 Intake Total 1360 / 1360 Balance 1360 / 1360 Weight last 48 hrs Weight 87.203 kg Weight 85.956 kg Weight 86.183 kg Weight 86.183 kg Physical Exam 2 Narrative: General: Alert, able to answer questions appropriately, pleasant HEENT: Moist mucous membranes Neck: Supple Lymph: No lymphadenopathy Chest: Normal to inspection Respiratory: Even respirations, clear lungs per auscultation throughout, Cardiac: RRR, she has 2+ radial and dorsalis pedis bilateral, no murmurs GI: Active bowel sounds, nontender on palpation : Deferred Neuro: Alert and oriented x 4 Data 07/13/23 04:50 07/13/23 04:50 Other Labs: Hemoglobin 10, hematocrit 33.1, MCV 81.9, 2-hour delta Trop 13.11, 6-hour troponin 13.3 A&P Assessment and plan (1) Elevated troponin: 2-hour delta troponin 13.11, 6-hour [id number] Cardiology consultation. Recommendations appreciated Patient to undergo cardiac catheterization with cardiology today due to recurrent episodes of chest pains. Cardiac cath completed and revealed a high-grade LAD lesion narrowing. Intervention complete. Patient had no evidence of acute chest pain last night throughout the night. Will await results of catheterization cardiac. Telemetry Echocardiogram completed and revealed LVEF of 62% with mild hypokinesia of the basal inferior wall segment. Mild concentric left ventricular hypertrophy diastolic dysfunction, moderately elevated filling pressures. No RV strain. (2) Hypertension: Stable at this time. Monitor Home medications in place Qualifiers: Hypertension type: essential hypertension Qualified Code(s): I10 - Essential (primary) hypertension (3) Ischemic heart disease: As per #1. (4) Dyslipidemia: Continue home statin. (5) Hypothyroidism: Stable at this time. Home medications in place Qualifiers: Hypothyroidism type: unspecified Qualified Code(s): E03.9 - Hypothyroidism, unspecified (6) Other iron deficiency anemias: MCV noted to be 81.9 this a.m. Continue home medication regiment of iron ferrous sulfate 325 p.o. daily. Patient has been evaluated by hematology and has iron deficiency anemia, as well as hemochromatosis Plan Plan as stated above. patient will undergo cardiac catheterization today with cardiology. Cardiac cath completed and revealed a high-grade LAD lesion narrowing. Intervention will take place at this time. echocardiogram was completed and results are stated as above. We will await results of cardiac cath. Continue telemetry. Anticipate discharge tomorrow morning. CODE STATUS: Full code. DVT prophylaxis: Lovenox Coding Level of Care Code 83352 Diagnoses Elevated troponin R79.89 Essential hypertension I10 Hypertension type: essential hypertension Ischemic heart disease I25.9 Dyslipidemia E78.5 Hypothyroidism, unspecified type E03.9 Hypothyroidism type: unspecified Other iron deficiency anemias D50.8 Time Spent (min) 24 Documented by User: Alex Dougherty MD 07/13/23 09:29 Data 07/13/23 04:50 07/13/23 04:50 A&P Assessment and plan (1) Elevated troponin: 2-hour delta troponin 13.11, 6-hour [id number] Cardiology consultation. Recommendations appreciated Patient to undergo cardiac catheterization with cardiology today due to recurrent episodes of chest pains. Cardiac cath completed and revealed a high-grade LAD lesion narrowing. Intervention currently going on. Patient had no evidence of acute chest pain last night throughout the night. Will await results of catheterization cardiac. Telemetry Echocardiogram completed and revealed LVEF of 62% with mild hypokinesia of the basal inferior wall segment. Mild concentric left ventricular hypertrophy diastolic dysfunction, moderately elevated filling pressures. No RV strain. 2/4 diastolic dysfunction (2) Hypertension: Qualifiers: Hypertension type: essential hypertension Qualified Code(s): I10 - Essential (primary) hypertension (3) Ischemic heart disease: (4) Dyslipidemia: (5) Hypothyroidism: Qualifiers: Hypothyroidism type: unspecified Qualified Code(s): E03.9 - Hypothyroidism, unspecified (6) Other iron deficiency anemias: Attestations 2 Medical Necessity Statement*: Needs continued hospitalization for close monitoring following coronary angiogram, with intervention. Diagnoses Elevated troponin R79.89 Essential hypertension I10 Hypertension type: essential hypertension Ischemic heart disease I25.9 Dyslipidemia E78.5 Hypothyroidism, unspecified type E03.9 Hypothyroidism type: unspecified Other iron deficiency anemias D50.8 Time Spent (min) 24
--- NOTE | 2023-07-13 09:55 | PC.CHAP ---
Pastoral Care Encounter/Spiritual Assessment Type of Contact [] Declined heavy duty custodian visit [] Patient/Family/Request visit [] Outpatient visit [x] Follow-up visit [] Physician referral [] Code/Alert [] Routine visit [] Staff referral [] Actively dying [] Patient sleeping [] Family support [] [] Out of room [] Palliative care [] [] Receiving care in room [] Pre-surgical visit [] Trauma [] Long length of stay [] ICU visit [] Other: Relational/Emotional Strength [] Patient feels connected with others/family/visitors/staff [] Distress [] Loneliness/isolation [] Abandonment Spirituality of Patient [] Person of Noa [] Attends Church of their Noa [] Believes in Prayer [] Reads Bible or Voodoo materials [] There are Spiritual issues to be addressed Dial Buffer Interventions [] Prayer [] Active listening [] Non-anxious presence [] Spiritual/emotional support [] Crisis/trauma care [] Spiritual counseling [] Bereavement support [] Provided bereavement packet [] Provided Bible/devotional materials [] Provided toy/stuffed animal, coloring book to patient or family member [] Provided Communion [] Anointing/[place] [] Salvation [] Completed spiritual assessment [] Other: Impact on Illness or Injury [] Angry [] Fearful [] Anxious [] Often cries [] Exhaustion [] Unable to work [] Unable to attend shinto [] Unable to walk/stand [] Unable to read [] Unable to drive [] Unable to eat/drink [] Unable to sleep [] Unable to be with family [] Patient intubated [] Other: Summary in a proceeduer Time spent with patient 5 mins
[2023-07-13] MEDS: metoprolol tartrate 50 mg Tablet PO ×2 (11:21→20:26)
[2023-07-13] MEDS: duloxetine 60 mg Capsule PO ×2 (11:21→17:45)
[2023-07-13] MEDS: levothyroxine 75 mcg Tablet PO (11:22)
[2023-07-13] MEDS: aspirin 81 mg EC Tablet PO (11:22)
[2023-07-13] MEDS: ropinirole 0.25 mg Tablet PO (11:22)
[2023-07-13] MEDS: pantoprazole DR 40 mg Tablet PO ×2 (11:23→17:44)
[2023-07-13] MEDS: atorvastatin 40 mg Tablet 80 MG PO (17:44)
[2023-07-14] VITALS (8 sets, daily range): BP systolic 112–146; BP diastolic 60–88; PULSE 65–78; RESP 16–26; TEMP 36.7–37.2; O2SAT 90–94
[2023-07-14 03:59] LABS: Basophils % 0.4 %; Eosinophils # 0.3 10^3/uL (0.0-0.8); Eosinophils % 4.3 %; Hematocrit 34.8 % (36-47); Lymphocytes # 1.5 10^3/uL (0.8-4.8); Lymphocytes % 19.6 %; Mean Corpuscular HGB Conc 29.9 g/dL (30-55); Mean Corpuscular Hemoglobin 24.6 pg (27-33); Mean Corpuscular Volume 82.5 fl (85-98); Mean Platelet Volume 10.1 fL (7.4-10.4); Monocytes # 0.6 10^3/uL (0.2-0.9); Monocytes % 8.2 %; Neutrophils # 5.02 10^3/uL (1.8-7.7); Neutrophils % 67.2 %; Nucleated Red Blood Cells % 0 %; Platelet Count 258 10^3/cmm (157-399); Red Blood Count 4.22 10^6/uL (3.85-5.65); Red Cell Distribution Width 18.4 % (12.1-15.1); White Blood Count 7.46 10^3/uL (3.29-11.43)
[2023-07-14 04:25] LABS: Anion Gap 11.2 (5-19); Blood Urea Nitrogen 12 mg/dL (8-23); Calcium 9.1 mg/dL (8.5-10.5); Carbon Dioxide 29 mmol/L (22-29); Chloride 106 mmol/L (98-107); Glomerular Filtration Rate 71.3 mL/min (90-130); Glucose 114 mg/dL (65-115); Osmolality Calculated 293 mOsm/kg (285-295); Potassium 5.2 mmol/L (3.5-5.1); Sodium 141 mmol/L (136-145)
--- NOTE | 2023-07-14 08:56 | PC.CHAP ---
Pastoral Care Encounter/Spiritual Assessment Type of Contact [] Declined silverware assembler visit [] Patient/Family/Request visit [] Outpatient visit [] Follow-up visit [] Physician referral [] Code/Alert [x] Routine visit [] Staff referral [] Actively dying [] Patient sleeping [] Family support [] [] Out of room [] Palliative care [] [] Receiving care in room [] Pre-surgical visit [] Trauma [] Long length of stay [] ICU visit [] Other: Relational/Emotional Strength [x] Patient feels connected with others/family/visitors/staff [] Distress [] Loneliness/isolation [] Abandonment Spirituality of Patient [] Person of Noa [] Attends [employer] of their Noa [x] Believes in Prayer [] Reads Bible or Sikhism materials [] There are Spiritual issues to be addressed Clutch Operator Interventions [x] Prayer [] Active listening [x] Non-anxious presence [x] Spiritual/emotional support [] Crisis/trauma care [] Spiritual counseling [] Bereavement support [] Provided bereavement packet [] Provided Bible/devotional materials [] Provided toy/stuffed animal, coloring book to patient or family member [] Provided Communion [] Anointing/Melissa [] Salvation [x] Completed spiritual assessment [] Other: Impact on Illness or Injury [] Angry [] Fearful [] Anxious [] Often cries [] Exhaustion [] Unable to work [] Unable to attend amish [] Unable to walk/stand [] Unable to read [] Unable to drive [] Unable to eat/drink [] Unable to sleep [] Unable to be with family [] Patient intubated [] Other: Summary Time spent with patient 5 min
--- NOTE | 2023-07-14 09:16 | PC.SOCIAL ---
IMM Update Pg. 2 of IMM updated and reviewed with patient who verbalized understanding. Copy provided.
[2023-07-14] MEDS: levothyroxine 75 mcg Tablet PO (09:35)
[2023-07-14] MEDS: clopidogrel 75 mg Tablet PO (09:35)
[2023-07-14] MEDS: ropinirole 0.25 mg Tablet PO (09:36)
[2023-07-14] MEDS: pantoprazole DR 40 mg Tablet PO (09:36)
[2023-07-14] MEDS: duloxetine 60 mg Capsule PO (09:36)
[2023-07-14] MEDS: metoprolol tartrate 50 mg Tablet PO (09:36)
[2023-07-14] MEDS: aspirin 81 mg EC Tablet PO (09:36)
[2023-07-14] MEDS: FUROsemide 10 mg/mL SDV 4mL 40 MG IVP (10:10)
--- NOTE | 2023-07-14 11:58 | P.DS_ITS ---
Discharge Providers Date of Admission: 07/13/23 09:00 Date of Discharge: July 14, 2023 Attending Provider at Admission: Alex Dougherty MD Attending Provider at Discharge: Alex Dougherty MD Primary Care Provider: Claudia Kong MD Diagnoses at Discharge Discharge Diagnosis (1) Elevated troponin: Status: Acute (2) Hypertension: Status: Acute Qualifiers: Hypertension type: essential hypertension Qualified Code(s): I10 - Essential (primary) hypertension (3) Ischemic heart disease: Status: Acute (4) Dyslipidemia: Status: Acute (5) Hypothyroidism: Status: Acute Qualifiers: Hypothyroidism type: unspecified Qualified Code(s): E03.9 - Hypothyroidism, unspecified (6) Other iron deficiency anemias: Status: Acute Reason for Visit Reason for Visit: Chest Pain Hospital Course Hospital Course Patient presented to hospital with complaints of chest discomfort consistent with angina. EKG was nonspecific. Troponin slightly elevated but not significant trend. Secondary to symptomatology, angiogram was arranged. This was performed second day of admission, July 13. Angiogram demonstrated proximal LAD in-stent stenosis. A drug-eluting stent was placed with good result. The following day the patient was chest pain-free. Creatinine was stable. She was slightly short of breath so dose of IV Lasix was given. This improve the patient's condition. She had significant concerns of hypoxia at night and a home oxygen evaluation was performed prior to discharge. She was asked to follow-up with primary care provider 3 to 5 days, and consideration/discussion of possible sleep apnea and sleep study. She will follow-up with cardiology per their instruction. She was given opportunity ask questions and agrees with the plan. Physical Exam Narrative: General exam is no distress Neck is supple Cardiovascular regular rhythm without murmur Lungs have faint crackles, left lower lung. Note the chest x-ray is normal on admission Abdomen is soft Extremities no cyanosis, edema Discharge Data Studies Completed and Pending Completed Studies During Hospitalization Category Date Time Status XR chest 1V portable [id number] Stat Exams 07/12/23 08:25 Completed CV. 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 Negative for acute infiltrates. Negative for congestive heart failure Laboratory Results WBC 7.46 10^3/uL (3.29-11.43) 07/14/23 03:43 RBC 4.22 10^6/uL (3.85-5.65) 07/14/23 03:43 Hgb 10.40 g/dL (11.27-16.99) L 07/14/23 03:43 Hct 34.8 % (36-47) L 07/14/23 03:43 MCV 82.5 fl (85-98) L 07/14/23 03:43 MCH 24.6 pg (27-33) L 07/14/23 03:43 MCHC 29.9 g/dL (30-55) L 07/14/23 03:43 RDW 18.4 % (12.1-15.1) H 07/14/23 03:43 Plt Count 258 10^3/cmm (157-399) 07/14/23 03:43 MPV 10.1 fL (7.4-10.4) 07/14/23 03:43 Neut % (Auto) 67.2 % 07/14/23 03:43 Lymph % (Auto) 19.6 % 07/14/23 03:43 [place] % (Auto) 8.2 % 07/14/23 03:43 Eos % (Auto) 4.3 % 07/14/23 03:43 Baso % (Auto) 0.4 % 07/14/23 03:43 Neut # (Auto) 5.02 10^3/uL (1.8-7.7) 07/14/23 03:43 Lymph # (Auto) 1.5 10^3/uL (0.8-4.8) 07/14/23 03:43 [place] # (Auto) 0.6 10^3/uL (0.2-0.9) 07/14/23 03:43 Eos # (Auto) 0.3 10^3/uL (0.0-0.8) 07/14/23 03:43 Baso # (Auto) 0.0 10^3/uL (0.0-0.1) 07/14/23 03:43 Nucleated RBC % (auto) 0 % 07/14/23 03:43 Nucleated RBCs # 0.0 /100WBC 07/14/23 03:43 Sodium 141 mmol/L (136-145) 07/14/23 03:43 Potassium 5.2 mmol/L (3.5-5.1) H 07/14/23 03:43 Chloride 106 mmol/L (98-107) 07/14/23 03:43 Carbon Dioxide 29 mmol/L (22-29) 07/14/23 03:43 Anion Gap 11.2 (5-19) 07/14/23 03:43 BUN 12 mg/dL (8-23) 07/14/23 03:43 Creatinine 0.8 mg/dL (0.5-0.9) 07/14/23 03:43 GFR Calculation 71.3 mL/min (90-130) L 07/14/23 03:43 Glucose 114 mg/dL (65-115) 07/14/23 03:43 Calculated Osmolality 293 mOsm/kg (285-295) 07/14/23 03:43 Calcium 9.1 mg/dL (8.5-10.5) 07/14/23 03:43 Total Bilirubin 0.3 mg/dL (0.15-1.2) 07/13/23 04:50 AST 9 U/L (0-32) 07/13/23 04:50 ALT 14 U/L (0-33) 07/13/23 04:50 Alkaline Phosphatase 105 U/L (35-105) 07/13/23 04:50 Troponin T Baseline 13 ng/L (0-10) H 07/12/23 08:05 Troponin T 120 Minute 13.11 ng/L (0-10) H 07/12/23 10:09 Delta Troponin T 0.11 ABS# (0-10) 07/12/23 10:09 Troponin T Hi Sens 6Hr 13.30 ng/L (0-10) H 07/12/23 14:05 Troponin T Hi Sens 6Hr Delta 0.30 ng/L (0-12) 07/12/23 14:05 Total Protein 5.3 g/dL (6.6-8.7) L D 07/13/23 04:50 Albumin 3.3 g/dL (3.5-5.2) L 07/13/23 04:50 Globulin 2.0 g/dL (1.3-4.6) 07/13/23 04:50 TSH 2.15 uIU/mL (0.27-4.20) 07/12/23 08:05 Vitals Last Vital Signs Temp 98.0 F 07/14/23 08:00 Pulse 76 07/14/23 08:00 Resp 26 H 07/14/23 08:00 BP 146/80 07/14/23 08:00 Pulse Ox 93 07/14/23 08:00 O2 Del Method Nasal Cannula 07/14/23 08:00 O2 Flow Rate 2 07/13/23 03:58 Discharge Plan Discharge Patient Disposition: Home Condition: Stable Prescriptions: Continued albuterol sulfate 90 mcg/actuation HFA aerosol inhaler 2 puff INHALATION Q6H PRN (Reason: Shortness Of Breath) cyclobenzaprine 10 mg tablet 10 mg PO BEDTIME levothyroxine [Synthroid] 75 mcg tablet 75 mcg PO DAILY duloxetine 60 mg capsule,delayed release(DR/EC) 60 mg PO BID hydroxyzine HCl 25 mg tablet 100 mg PO BEDTIME pantoprazole 40 mg tablet,delayed release (DR/EC) 40 mg PO BID ropinirole 0.25 mg tablet 0.25 mg PO DAILY nitroglycerin [Nitrostat] 0.4 mg tablet, sublingual 0.4 mg SUBLINGUAL Q5M PRN (Reason: Chest Pain) Qty: 25 1RF Rx Instructions: do not exceed 3 doses per episode melatonin 10 mg capsule 10 mg PO DAILY Patient Comments: before bedtime acetaminophen 500 mg capsule 500 mg PO Q6H PRN (Reason: Pain) clopidogrel 75 mg tablet 75 mg PO DAILY Qty: 90 3RF metoprolol tartrate 50 mg tablet See Rx Instructions .ROUTE .COMPLEX Qty: 180 3RF Dose Instruction: TAKE 1 TABLET BY MOUTH TWICE DAILY, ONE TAB AT 9AM AND ONE TAB AT 9PM Rx Instructions: TAKE 1 TABLET BY MOUTH TWICE DAILY, ONE TAB AT 9AM AND ONE TAB AT 9PM aspirin 81 mg Tablet,Delayed Release (Dr/Ec) 81 mg PO DAILY@10 Iron (ferrous sulfate) 325 mg (65 mg iron) Tablet 325 mg PO DAILY potassium chloride 20 mEq Tablet Extended Release 20 meq PO DAILY PRN (Reason: with lasix) rosuvastatin 40 mg tablet 40 mg PO QPM Changed furosemide 20 mg Tablet 20 mg PO DAILY Qty: 30 0RF Discharge Orders: Discharge Order (Routine); Ordered 07/14/23 Ordered By: Alex Dougherty Referrals: Claudia Kong MD [Primary Care Provider] - 07/20/23 1:30 pm (Your follow up appointment will be with Lauryn Berkowitz Nurse Practioner. If anything changes or opens up, the office will give you a call. If you have any questions or concerns please give them a call. Thank you.) Jorge Sandoval MD [Physician] - Shari Dozier FNP [Nurse Practitioner] - 07/21/23 11:30 am Discharge Diet: Cardiac Discharge Activity: Increase activity as tolerated Patient Instructions: Coronary Angioplasty (DC), Opioid Safety, Post Angiogram Home Care Instructions Activity Restrictions/Additional Instructions: Take all medicine as prescribed Follow-up with cardiology per their instruction and follow their post cath instructions Follow-up with Dr. Kong as noted on July 20. Discharge Attestations Time Spent in Discharge Care*: greater than 30 min Quality Metrics Clinical Quality Measures [ No reported AMI, CVA or VTE this stay] Coding Level of Care Code 34789 Total time (in minutes) for Discharge: 32 Diagnoses Elevated troponin R79.89 Essential hypertension I10 Hypertension type: essential hypertension Ischemic heart disease I25.9 Dyslipidemia E78.5 Hypothyroidism, unspecified type E03.9 Hypothyroidism type: unspecified Other iron deficiency anemias D50.8
--- NOTE | 2023-07-14 13:44 | P.PN_ITS ---
Subjective 2 Subjective: The patient is feeling okay. She has no chest pain or chest tightness. No unusual shortness of breath. Vital signs stable. No cough or shortness of breath. Medications: Medication Review Details: Current Medications Acetaminophen (Acetaminophen 325 Mg Tablet) 650 mg PO Q6H PRN PRN Reason: Mild/Mod Pain Or Temp >/= 101 Last Admin: 07/13/23 07:33 Dose: 650 mg Al Hydrox/Mg Hydrox/Simethicone (Hsrn-Pvm-Qnqscfctq-Jose R 30 Ml Udc) 30 ml PO Q15M PRN PRN Reason: INDIGESTION Alprazolam (Alprazolam 0.5 Mg Tablet) 0.25 mg PO TID PRN PRN Reason: ANXIETY Aspirin (Aspirin 81 Mg Ec Tablet) 81 mg PO DAILY@10 [facility] Last Admin: 07/14/23 09:36 Dose: 81 mg Atorvastatin Calcium (Atorvastatin 40 Mg Tablet) 80 mg PO QPM [facility] Last Admin: 07/13/23 17:44 Dose: 80 mg Atropine Sulfate (Atropine 1 Mg/Ml Sdv 1 Ml) 0.5 mg IVP PRN PRN PRN Reason: Symptomatic bradycardia Clopidogrel Bisulfate (Clopidogrel 75 Mg Tablet) 75 mg PO DAILY [facility] Last Admin: 07/14/23 09:35 Dose: 75 mg Duloxetine HCl (Duloxetine 60 Mg Capsule) 60 mg PO BID [facility] Last Admin: 07/14/23 09:36 Dose: 60 mg Levothyroxine Sodium (Levothyroxine 75 Mcg Tablet) 75 mcg PO DAILY [facility] Last Admin: 07/14/23 09:35 Dose: 75 mcg Magnesium Hydroxide (Magnesium Hydroxide 30 Ml Udc) 30 ml PO DAILY PRN PRN Reason: CONSTIPATION Metoprolol Tartrate (Metoprolol Tartrate 50 Mg Tablet) 50 mg PO Q12H [facility] Last Admin: 07/14/23 09:36 Dose: 50 mg Naloxone HCl (Naloxone 0.4 Mg/Ml Sdv) 0.1 mg IVP Q2M PRN PRN Reason: RESPIRATORY RATE < 8/MIN Nitroglycerin (Nitroglycerin 0.4 Mg Sublingual Tablet) 0.4 mg SUBLINGUAL Q5M PRN PRN Reason: CHEST PAIN Ondansetron HCl (Ondansetron 2 Mg/Ml Sdv 2 Ml) 4 mg IVP Q6H PRN PRN Reason: NAUSEA AND VOMITING Last Admin: 07/12/23 10:55 Dose: 4 mg Pantoprazole Sodium (Pantoprazole Dr 40 Mg Tablet) 40 mg PO BID [facility] Last Admin: 07/14/23 09:36 Dose: 40 mg Ropinirole HCl (Ropinirole 0.25 Mg Tablet) 0.25 mg PO DAILY [facility] Last Admin: 07/14/23 09:36 Dose: 0.25 mg Temazepam (Temazepam 15 Mg Capsule) 15 mg PO BEDTIME PRN PRN Reason: INSOMNIA Vitals/I&O/Wt Last Vital Signs Temp 99.0 F 07/14/23 12:00 Pulse 76 07/14/23 12:00 Resp 23 H 07/14/23 12:00 BP 129/60 07/14/23 12:00 Pulse Ox 90 07/14/23 12:00 O2 Del Method Room Air 07/14/23 12:00 O2 Flow Rate 2 07/13/23 03:58 07/13/23 07/14/23 07/14/23 22:59 06:59 14:59 Intake Total 500 / 860 280 / 1140 2560 / 2560 Output Total 500 / 500 1200 / 1700 Balance 0 / 360 -920 / -560 2560 / 2560 Weight last 48 hrs Weight 200 lb Weight 192 lb 4 oz Weight 189 lb 8 oz Physical Exam 2 Narrative: GENERAL: The patient is alert and oriented times three. Not in any acute distress. HEENT: No significant pallor, icterus or lymphadenopathy.Oral cavity: There are no mucous membrane lesions. NECK: Trachea appears to be central. No masses noted. No JVD or thyromegaly appreciated. RESPIRATORY: Chest is symmetrical. No intercostals muscle retraction or any accessory muscle activation. There is no chest wall tenderness. Breath sounds are heard bilaterally. Few coarse crackles at the right base. No evidence of consolidation BREASTS: Deferred. HEART: The heart sounds are normal. No S3 or S4. No significant murmurs. No pericardial rub ABDOMEN: No vessel pulsations or distention. No tenderness. No organomegaly appreciated. Bowel sounds are normally heard. : Deferred. RECTAL: Deferred. LYMPHATIC: No lymphadenopathy noted in the neck. EXTREMITIES: No edema or cyanosis. No clubbing. MUSCULOSKELETAL: No acute joint deformities or swelling SKIN: There are no significant rashes or ecchymosis NEUROPSYCHIATRIC: The patient is alert and oriented x3. Appears to be in a good mood. No tremors or rigidity noted. Data 07/14/23 03:43 07/14/23 03:43 Other Labs: Laboratory Last Values WBC 7.46 10^3/uL (3.29-11.43) 07/14/23 03:43 RBC 4.22 10^6/uL (3.85-5.65) 07/14/23 03:43 Hgb 10.40 g/dL (11.27-16.99) L 07/14/23 03:43 Hct 34.8 % (36-47) L 07/14/23 03:43 MCV 82.5 fl (85-98) L 07/14/23 03:43 MCH 24.6 pg (27-33) L 07/14/23 03:43 MCHC 29.9 g/dL (30-55) L 07/14/23 03:43 RDW 18.4 % (12.1-15.1) H 07/14/23 03:43 Plt Count 258 10^3/cmm (157-399) 07/14/23 03:43 MPV 10.1 fL (7.4-10.4) 07/14/23 03:43 Neut % (Auto) 67.2 % 07/14/23 03:43 Lymph % (Auto) 19.6 % 07/14/23 03:43 [place] % (Auto) 8.2 % 07/14/23 03:43 Eos % (Auto) 4.3 % 07/14/23 03:43 Baso % (Auto) 0.4 % 07/14/23 03:43 Neut # (Auto) 5.02 10^3/uL (1.8-7.7) 07/14/23 03:43 Lymph # (Auto) 1.5 10^3/uL (0.8-4.8) 07/14/23 03:43 [place] # (Auto) 0.6 10^3/uL (0.2-0.9) 07/14/23 03:43 Eos # (Auto) 0.3 10^3/uL (0.0-0.8) 07/14/23 03:43 Baso # (Auto) 0.0 10^3/uL (0.0-0.1) 07/14/23 03:43 Nucleated RBC % (auto) 0 % 07/14/23 03:43 Nucleated RBCs # 0.0 /100WBC 07/14/23 03:43 Sodium 141 mmol/L (136-145) 07/14/23 03:43 Potassium 5.2 mmol/L (3.5-5.1) H 07/14/23 03:43 Chloride 106 mmol/L (98-107) 07/14/23 03:43 Carbon Dioxide 29 mmol/L (22-29) 07/14/23 03:43 Anion Gap 11.2 (5-19) 07/14/23 03:43 BUN 12 mg/dL (8-23) 07/14/23 03:43 Creatinine 0.8 mg/dL (0.5-0.9) 07/14/23 03:43 GFR Calculation 71.3 mL/min (90-130) L 07/14/23 03:43 Glucose 114 mg/dL (65-115) 07/14/23 03:43 Calculated Osmolality 293 mOsm/kg (285-295) 07/14/23 03:43 Calcium 9.1 mg/dL (8.5-10.5) 07/14/23 03:43 Total Bilirubin 0.3 mg/dL (0.15-1.2) 07/13/23 04:50 AST 9 U/L (0-32) 07/13/23 04:50 ALT 14 U/L (0-33) 07/13/23 04:50 Alkaline Phosphatase 105 U/L (35-105) 07/13/23 04:50 Troponin T Baseline 13 ng/L (0-10) H 07/12/23 08:05 Troponin T 120 Minute 13.11 ng/L (0-10) H 07/12/23 10:09 Delta Troponin T 0.11 ABS# (0-10) 07/12/23 10:09 Troponin T Hi Sens 6Hr 13.30 ng/L (0-10) H 07/12/23 14:05 Troponin T Hi Sens 6Hr Delta 0.30 ng/L (0-12) 07/12/23 14:05 Total Protein 5.3 g/dL (6.6-8.7) L D 07/13/23 04:50 Albumin 3.3 g/dL (3.5-5.2) L 07/13/23 04:50 Globulin 2.0 g/dL (1.3-4.6) 07/13/23 04:50 TSH 2.15 uIU/mL (0.27-4.20) 07/12/23 08:05 A&P Assessment and plan (1) Atherosclerotic heart disease of [place] coronary artery with unstable angina pectoris: Patient status post cardiac catheterization, status post PCI of the LAD lesion, currently remaining stable. Patient may continue on the Plavix, aspirin, and other current medications. Qualifiers: [place] vs. transplanted heart: [place] heart Qualified Code(s): I25.110 - Atherosclerotic heart disease of [place] coronary artery with unstable angina pectoris (2) Dyslipidemia: May continue on the current medications. (3) Hypertension: Currently normotensive. May continue on the current medications. Qualifiers: Hypertension type: essential hypertension Qualified Code(s): I10 - Essential (primary) hypertension (4) Abnormal findings on auscultation: The etiology is not clear. In view of the history of recent COVID, it could be COVID-related. The heart failure cannot be excluded but my clinical suspicion may be low since the patient has no shortness of breath Plan Other problems are Hypothyroidism, clinically euthyroid GERD Reactive airway disease Patient was given a dose of Lasix to see whether that makes a difference. If she continues to have it, may consider doing a chest x-ray. If she remains stable, may be discharged home today Follow-up with the [facility] in 1 week to be seen by the nurse practitioner Follow-up with me in the office in 1 month Attestations 2 Medical Necessity Statement*: Possible discharge home today Coding Level of Care Code 26562 Diagnoses Atherosclerosis of [place] coronary artery of [place] heart with unstable angina pectoris I25.110 [place] vs. transplanted heart: [place] heart Dyslipidemia E78.5 Essential hypertension I10 Hypertension type: essential hypertension Abnormal findings on auscultation R68.89
--- NOTE | 2023-07-14 13:56 | XRR_ITS ---
PROCEDURE INFORMATION: Exam: XR Chest Exam date and time: 07/14/2023 3:31 PM Age: 67 years old Clinical indication: Cough TECHNIQUE: Imaging protocol: Radiologic exam of the chest. Views: 1 view. COMPARISON: CR XR chest 1V portable [id number] 07/12/2023 8:30 AM FINDINGS: Lungs: Unremarkable. No consolidation. Pleural spaces: Unremarkable. No pleural effusion. No pneumothorax. Heart/Mediastinum: Unremarkable. No cardiomegaly. Bones/joints: Unremarkable. XR/XR chest 1V portable [id number] IMPRESSION: No acute findings.
== END 2023-07-14 15:59 | disposition home or self-care (01) | DRG 322 ==
LOC: ER 10:04 → ER IP 10:52 → CSU 11:43
PROVIDERS: Internal Medicine; Internal Medicine Cardiovascular Disease; Admitting Provider Internal Medicine; Emergency Provider Family Medicine; PCP Internal Medicine; Visit Provider Internal Medicine
PROC: 027034Z Dilation of Coronary Artery, One Artery with Drug-eluting Intraluminal Device, Percutaneous Approach (ICD-10-PCS; principal; 2023-07-13 08:30)
DX: I25.110 Atherosclerotic heart disease of native coronary artery with unstable angina pectoris (principal); E03.9 Hypothyroidism, unspecified; I10 Essential (primary) hypertension; F32.A Depression, unspecified; K21.9 Gastro-esophageal reflux disease without esophagitis; I25.2 Old myocardial infarction; D50.8 Other iron deficiency anemias; E78.5 Hyperlipidemia, unspecified; J45.909 Unspecified asthma, uncomplicated; Z86.16 Personal history of COVID-19; Z79.02 Long term (current) use of antithrombotics/antiplatelets; Z82.3 Family history of stroke; Z79.82 Long term (current) use of aspirin
CPT/HCPCS: 36415; 71045; 80048; 80053; 84443; 84484; 85025; 85347; 92978; 93005; 93306; 93458; 94760; 94762; 96372; 99152; 99153; 99285; C1725; C1753; C1769; C1874; C1887; C1894; C9600; G0378; J1644; J1650; J1940; J2250; J2405; J3010; J3490; J7030; Q0163; Q9967

== ENCOUNTER 2023-07-17 01:06 | Emergency (ER) | payer MEDICARE, SELFPAY ==
[2023-07-17] VITALS (13 sets, daily range): BP systolic 95–130; BP diastolic 54–69; PULSE 67–79; RESP 17–24; TEMP 36.6; O2SAT 85–98
--- NOTE | 2023-07-17 01:14 | ECG_ITS ---
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 Measurements Intervals [place] Rate: 74 P: 60 [place]: 141 QRS: 37 QRSD: 96 T: 43 QT: 400 QTc: 445 Interpretive Statements SINUS RHYTHM NONSPECIFIC ST & T-WAVE ABNORMALITY Compared to ECG 07/12/2023 14:43:35 Ventricular premature complex(es) no longer present T-wave abnormality still present Electronically Signed On 07-17-2023 9:10:17 REPAIRER SWITCHGEAR by Nehemias Pérez M.D. [id number]
--- NOTE | 2023-07-17 01:34 | XRR_ITS ---
PROCEDURE INFORMATION: Exam: XR Chest Exam date and time: 07/17/2023 1:42 AM Age: 67 years old Clinical indication: Chest pressure; Prior surgery; Surgery date: 3-7 days post-operative; Surgery type: Ptca with stent placement 07/13/2023; Patient HX: EMS arrival for syncopal episode. C/O chest pain. ; Additional info: Chest pain syncope TECHNIQUE: Imaging protocol: Radiologic exam of the chest. Views: 1 view. COMPARISON: CR XR chest 1V portable [id number] 07/14/2023 3:31 PM FINDINGS: Lungs: Unremarkable. No consolidation. Pleural spaces: Unremarkable. No pleural effusion. No pneumothorax. Heart/Mediastinum: Coronary artery stent is incidentally noted. Bones/joints: Degenerative changes are noted in the bones. XR/XR chest 1V portable [id number] IMPRESSION: No acute cardiopulmonary disease.
--- NOTE | 2023-07-17 01:34 | CTR_ITS ---
PROCEDURE INFORMATION: Exam: CT Head Without Contrast Exam date and time: 07/17/2023 1:49 AM Age: 67 years old Clinical indication: Syncope and collapse; Patient HX: EMS arrival for syncopal episode. TECHNIQUE: Imaging protocol: Computed tomography of the head without contrast. Radiation optimization: All CT scans at this facility use at least one of these dose optimization techniques: automated exposure control; mA and/or kV adjustment per patient size (includes targeted exams where dose is matched to clinical indication); or iterative reconstruction. REPORTING DATA: Count of CT and Cardiac NM exams in prior 12 months: This patient has received [address] and 0 known cardiac nuclear medicine studies in the 12 months prior to the current study. COMPARISON: No relevant prior studies available. RADIATION DOSE METRICS: Total DLP (mGy-cm): 1017.19 FINDINGS: Brain: Normal. No hemorrhage. Unremarkable white matter. No mass effect. Cerebral ventricles: No ventriculomegaly. Paranasal sinuses: Visualized sinuses are unremarkable. No fluid levels. Mastoid air cells: Visualized mastoid air cells are well aerated. Bones/joints: Unremarkable. No acute fracture. Soft tissues: Unremarkable. CT/CT head wo con* [id number] IMPRESSION: No acute intracranial abnormality.
[2023-07-17 01:43] LABS: Basophils % 0.3 %; Eosinophils % 0.3 %; Hematocrit 36.3 % (36-47); Lymphocytes # 0.5 10^3/uL (0.8-4.8); Lymphocytes % 6.9 %; Mean Corpuscular HGB Conc 30.9 g/dL (30-55); Mean Corpuscular Hemoglobin 24.7 pg (27-33); Mean Platelet Volume 10.3 fL (7.4-10.4); Monocytes # 0.8 10^3/uL (0.2-0.9); Monocytes % 10.6 %; Neutrophils # 6.25 10^3/uL (1.8-7.7); Neutrophils % 81.6 %; Nucleated Red Blood Cells % 0 %; Platelet Count 246 10^3/cmm (157-399); Red Blood Count 4.54 10^6/uL (3.85-5.65); Red Cell Distribution Width 18.7 % (12.1-15.1); White Blood Count 7.65 10^3/uL (3.29-11.43)
[2023-07-17 01:53] LABS: Partial Thromboplastin Time 30.7 SECONDS (23.9-36.7)
[2023-07-17 02:05] LABS: Alanine Aminotransferase 38 U/L (0-33); Albumin Level 3.6 g/dL (3.5-5.2); Alkaline Phosphatase 115 U/L (35-105); Anion Gap 15.7 (5-19); Aspartate Amino Transferase 27 U/L (0-32); Blood Urea Nitrogen 9 mg/dL (8-23); Calcium 8.8 mg/dL (8.5-10.5); Carbon Dioxide 23 mmol/L (22-29); Chloride 96 mmol/L (98-107); Globulin 3.1 g/dL (1.3-4.6); Glomerular Filtration Rate 62.3 mL/min (90-130); Glucose 118 mg/dL (65-115); NT Pro B Type Natriuretic Pept 420 pg/mL (0-125); Osmolality Calculated 272 mOsm/kg (285-295); Potassium 3.7 mmol/L (3.5-5.1); Sodium 131 mmol/L (136-145); Total Bilirubin 0.2 mg/dL (0.15-1.2); Total Protein 6.7 g/dL (6.6-8.7)
[2023-07-17 02:21] LABS: Troponin(5th) Baseline 17 ng/L (0-10)
[2023-07-17 02:25] LABS: Add Urine Microscopic? YES; Bilirubin Urine Neg (Negative); Blood Urine Neg (Negative); Glucose Urine UA Norm (Normal); Ketones Urine 1+ (Negative); Leukocyte Esterase Urine Negative (Negative); Nitrate Urine Negative (Negative); Protein Urine Trace (Negative); Urine Appearance Clear (CLEAR); Urine Color Yellow (Yellow); Urobilinogen Urine 1 mg/dL (Negative); pH Urine 7 (5-7)
[2023-07-17 02:26] LABS: Bacteria Urine 1+ /hpf; Mucus Urine 2+ /hpf; RBC Urine 0-4 /hpf (0-2); Squamous Epithelial Cell Urine 15-25 /hpf (0-5)
--- NOTE | 2023-07-17 03:02 | ED_ITS ---
HPI - Chest Pain 2 General: Chief Complaint: Chest Pain Stated Complaint: Chest Pain/ Unresponsive Time Seen by Provider: 07/17/23 01:11 History of Present Illness: 67-year-old female with a history of cor onary disease. She had in-stent stenosis of her proximal LAD last week, with drug-eluting stent placement. She presents with chest pain this evening followed by a syncopal episode. She notes that she has been incredibly weak since she left the hospital. She was trying to get out of bed to use the restroom this morning, when she began to have significant chest pain. She was sitting at the side of the bed and collapsed. She does not know how long she was out, but believes it was 5 minutes or so. Currently, her chest is not hurting. She just feels generally weak. She states that she has been tired all the time. No fever. No increased cough. Associated symptoms: Reports dyspnea and nausea; Deny abdominal pain, fever(s), palpitations or vomiting Review of Systems 2 Const: Denies: fever(s) or chills Eyes: Denies: change in vision ENMT: Denies: throat pain Card: Reports: chest pain; Denies: palpitations Resp: Reports: dyspnea; Denies: productive cough or non-productive cough GI: Reports: nausea; Denies: abdominal pain or vomiting Neuro: Reports: weakness in extremities and dizziness PFSH ED 2 PFSH: Medical History Hypertension Depression Hemochromatosis GERD (gastroesophageal reflux disease) Hypothyroidism Dyslipidemia H/O acute myocardial infarction Ischemic heart disease ASHD (arteriosclerotic heart disease) Diastolic dysfunction Surgical History S/P tonsillectomy S/P PTCA (percutaneous transluminal coronary angioplasty) Family History Mother Stroke Hyperlipidemia Hypertension CAD (coronary artery disease) Myocardial infarction Father CAD (coronary artery disease) Hypertension Myocardial infarction Sister Cancer BREAST Social History Smoking and tobacco/nicotine status: never used tobacco/nicotine Alcohol intake: never Substance/Drug Use: never Household members: spouse Marital status: Physical Exam 2 Const: GENERAL APPEARANCE: cooperative, ill appearing (mildly) and frail appearing HENMT: COMMON NORMALS: normocephalic, atraumatic and Normal external nose present HEAD & SCALP: normocephalic and atraumatic FACE & SINUS: normal facial exam and face symmetric NOSE: Normal external nose present Eye: COMMON NORMALS: Equal, round and reactive pupils present and EOMs intact bilaterally PUPIL: Yes Equal, round and reactive pupils present Neck/C-Spine: GENERAL: Yes trachea midline Chest: CHEST: Yes Symmetrical chest wall rise Resp: COMMON NORMALS: normal respiratory effort, No retractions, No use of accessory muscles and clear to auscultation bilaterally AUSCULTATION: clear to auscultation bilaterally Cardio: COMMON NORMALS: regular rate and regular rhythm RATE: regular rate RHYTHM: regular rhythm GI: COMMON NORMALS: Normal to inspection, nondistended, normoactive bowel sounds present Extremity: COMMON NORMALS: no pedal edema Neuro: IMTIAZ COMA SCALE: document GCS findings Creighton coma scale eye opening: Spontaneous Imtiaz coma scale verbal response: Orientated Imtiaz coma scale motor response: Obey commands Imtiaz coma scale total score: 15 S ENSORY EXAM: Yes extremities (intact) Psych: COMMON NORMALS: speech normal SPEECH: Yes normal speech Skin: COMMON NORMALS: no rashes or lesions noted GENERAL SKIN EXAM: no rashes or lesions noted Course 2 Vital Signs: Vital signs: Vital Signs Temperature 98 F 07/17/23 01:11 Pulse Rate 74 07/17/23 05:03 Respiratory Rate 22 H 07/17/23 05:03 Blood Pressure 95/61 07/17/23 05:03 Pulse Oximetry 98 07/17/23 05:03 Oxygen Delivery Me thod Nasal Cannula 07/17/23 05:03 Oxygen Flow Rate 3 07/17/23 05:03 MDM - Chest Pain Medical Decision Making 67-year-old female with a history of coronary disease. She had in-stent stenosis treated by drug-eluting stent last week. She returns after syncopal episode at home. She had had some chest discomfort prior. No chest discomfort now. Hemoglobin is 11.2. Sodium is 131. CBC and BMP are otherwise not remarkable. Baseline troponin is 17 which is near her normal. Her 2-hour delta is 0.3. Her EKG shows a sinus rhythm. Normal axes and intervals. Rate is 75. There is no acute ST depression or elevation. She is noted to be hypoxic without the use of oxygen. Records were reviewed from her prior admission. There was concern over hypoxia then as well. This seemed to be worse with sleeping/resting. She did not go home with oxygen at that point. She failed a home oxygen study here, with saturations at 86 and 87% on room air while resting. She will be prescribed home oxygen. I spoke with the hospitalist regarding potential observation in the hospital given her history. With a normal delta troponin, and baseline troponin being essentially at her chronic baseline, the likelihood of stent occlusion is very low, as these patients typically have large troponin bumps. Chest x-ray is negative. Head CT is negative for acute change. With resolution of symptoms, she will be set up for home oxygen therapy. She knows to return for any return of or worsening symptoms. She will be allowed home otherwise. Lab Data 07/17/23 00:34 07/17/23 00:34 Radiology Impressions Chest X-Ray 07/17/23 01:34 IMPRESSION: No acute cardiopulmonary disease. Head CT 07/17/23 01:34 IMPRESSION: No acute intracranial abnormality. Laboratory Results WBC 7.65 10^3/uL (3.29-11.43) 07/17/23 00:34 RBC 4.54 10^6/uL (3.85-5.65) 07/17/23 00:34 Hgb 11.20 g/dL (11.27-16.99) L 07/17/23 00:34 Hct 36.3 % (36-47) 07/17/23:34 MCV 80.0 fl (85-98) L 07/17/23 00:34 MCH 24.7 pg (27-33) L 07/17/23 00:34 MCHC 30.9 g/dL (30-55) 07/17/23 00:34 RDW 18.7 % (12.1-15.1) H 07/17/23 00:34 Plt Count 246 10^3/cmm (157-399) 07/17/23 00:34 MPV 10.3 fL (7.4-10.4) 07/17/23 00:34 Neut % (Auto) 81.6 % 07/17/23 00:34 Lymph % (Auto) 6.9 % 07/17/23 00:34 [place] % (Auto) 10.6 % 07/17/23 00:34 Eos % (Auto) 0.3 % 07/17/23 00:34 Baso % (Auto) 0.3 % 07/17/23 00:34 Neut # (Auto) 6.25 10^3/uL (1.8-7.7) 07/17/23 00:34 Lymph # (Auto) 0.5 10^3/uL (0.8-4.8) L 07/17/23 00:34 [place] # (Auto) 0.8 10^3/uL (0.2-0.9) 07/17/23 00:34 Eos # (Auto) 0.0 10^3/uL (0.0-0.8) 07/17/23 00:34 Baso # (Auto) 0.0 10^3/uL (0.0-0.1) 07/17/23 00:34 Nucleated RBC % (auto) 0 % 07/17/23 00:34 Nucleated RBCs # 0.0 /100WBC 07/17/23 00:34 PT 13.50 SECONDS (12.1-14.9) 07/17/23 00:34 INR 1.00 (0.8-1.2) 07/17/23 00:34 APTT 30.7 SECONDS (23.9-36.7) 07/17/23 00:34 Sodium 131 mmol/L (136-145) L 07/17/23 00:34 Potassium 3.7 mmol/L (3.5-5.1) 07/17/23 00:34 Chloride 96 mmol/L (98-107) L 07/17/23 00:34 Carbon Dioxide 23 mmol/L (22-29) 07/17/23 00:34 Anion Gap 15.7 (5-19) 07/17/23 00:34 BUN 9 mg/dL (8-23) 07/17/23 00:34 Creatinine 0.9 mg/dL (0.5-0.9) 07/17/23 00:34 GFR Calculation 62.3 mL/min (90-130) L 07/17/23 00:34 Glucose 118 mg/dL (65-115) H 07/17/23 00:34 Calculated Osmolality 272 mOsm/kg (285-295) L 07/17/23 00:34 Calcium 8.8 mg/dL (8.5-10.5) 07/17/23 00:34 Total Bilirubin 0.2 mg/dL (0.15-1.2) 07/17/23 00:34 AST 27 U/L (0-32) 07/17/23 00:34 ALT 38 U/L (0-33) H 07/17/23 00:34 Alkaline Phosphatase 115 U/L (35-105) H 07/17/23 00:34 Troponin T Baseline 17 ng/L (0-10) H 07/17/23 00:34 Troponin T 120 Minute 17.31 ng/L (0-10) H 07/17/23 03:34 Delta Troponin T 0.31 ABS# (0-10) 07/17/23 03:34 NT-Pro-B Natriuret Pep 420 pg/mL (0-125) H 07/17/23 00:34 Total Protein 6.7 g/dL (6.6-8.7) 07/17/23 00:34 Albumin 3.6 g/dL (3.5-5.2) 07/17/23 00:34 Globulin 3.1 g/dL (1.3-4.6) 07/17/23 00:34 Urine Color Yellow (Yellow) 07/17/23 02:09 Urine Appearance Clear (CLEAR) 07/17/23 02:09 Urine pH 7 (5-7) 07/17/23 02:09 Ur Specific Scalf 1.010 (1.005-1.030) 07/17/23 02:09 Urine Protein Trace (Negative) 07/17/23 02:09 Urine Glucose (UA) Norm (Normal) 07/17/23 02:09 Urine Ketones 1+ (Negative) H 07/17/23 02:09 Urine Blood Neg (Negative) 07/17/23 02:09 Urine Nitrate Negative (Negative) 07/17/23 02:09 Urine Bilirubin Neg (Negative) 07/17/23 02:09 Urine Urobilinogen 1 mg/dL (Negative) H 07/17/23 02:09 Ur Leukocyte Esterase Negative (Negative) 07/17/23 02:09 Urine RBC 0-4 /hpf (0-2) H 07/17/23 02:09 Urine WBC 5-10 /hpf (0-5) H 07/17/23 02:09 Ur Squamous Epith Cells 15-25 /hpf (0-5) H 07/17/23 02:09 Amorphous Sediment Not Reportable 07/17/23 02:09 Urine Bacteria 1+ /hpf (NONE) H 07/17/23 02:09 Urine Mucus 2+ /hpf 07/17/23 02:09 All radiology interpretation(s) finalized by discharge Discharge Plan Discharge Patient Disposition: Home Clinical Impression: Ischemic heart disease, Syncope Condition: Stable Prescriptions: No Action albuterol sulfate 90 mcg/actuation HFA aerosol inhaler 2 puff INHALATION Q6H PRN (Reason: Shortness Of Breath) cyclobenzaprine 10 mg tablet 10 mg PO BEDTIME levothyroxine [Synthroid] 75 mcg tablet 75 mcg PO DAILY duloxetine 60 mg capsule,delayed release(DR/EC) 60 mg PO BID hydroxyzine HCl 25 mg tablet 100 mg PO BEDTIME pantoprazole 40 mg tablet,delayed release (DR/EC) 40 mg PO BID ropinirole 0.25 mg tablet 0.25 mg PO DAILY nitroglycerin [Nitrostat] 0.4 mg tablet, sublingual 0.4 mg SUBLINGUAL Q5M PRN (Reason: Chest Pain) Qty: 25 1RF Rx Instructions: do not exceed 3 doses per episode melatonin 10 mg capsule 10 mg PO DAILY Patient Comments: before bedtime acetaminophen 500 mg capsule 500 mg PO Q6H PRN (Reason: Pain) clopidogrel 75 mg tablet 75 mg PO DAILY Qty: 90 3RF metoprolol tartrate 50 mg tablet See Rx Instructions .ROUTE .COMPLEX Qty: 180 3RF Dose Instruction: TAKE 1 TABLET BY MOUTH TWICE DAILY, ONE TAB AT 9AM AND ONE TAB AT 9PM Rx Instructions: TAKE 1 TABLET BY MOUTH TWICE DAILY, ONE TAB AT 9AM AND ONE TAB AT 9PM aspirin 81 mg Tablet,Delayed Release (Dr/Ec) 81 mg PO DAILY@10 Iron (ferrous sulfate) 325 mg (65 mg iron) Tablet 325 mg PO DAILY potassium chloride 20 mEq Tablet Extended Release 20 meq PO DAILY PRN (Reason: with lasix) rosuvastatin 40 mg tablet 40 mg PO QPM furosemide 20 mg Tablet 20 mg PO DAILY Qty: 30 0RF Discharge Orders: Discharge ED (Routine); Ordered 07/17/23 Ordered By: Umer Montgomery Other Ambulatory Orders: DME: Oxygen (Order) Location: None Selected Ordered By: Umer Montgomery Referrals: Claudia Kong MD [Primary Care Provider] - 4-7 days Patient Instructions: Chest Pain (ED), Syncope (ED), Opioid Safety, Pain Management Activity Restrictions/Additional Instructions: Oxygen has been prescribed for you for home. Wear according to instructions. Follow-up with your doctor. Return for continued chest discomfort despite treatment, worsening shortness of breath, worsening generalized weakness despite oxygen, other concerning symptoms. Coding Level of Care Code ED Shower Doors And Panels Fabricator for Gustabo Franz
[2023-07-17 03:58] LABS: Troponin 5 2HR 17.31 ng/L (0-10); Troponin 5 2HR Delta 0.31 ABS# (0-10)
--- NOTE | 2023-07-17 04:04 | ECG_ITS ---
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 Measurements Intervals [place] Rate: 72 P: 51 MT: 140 QRS: 27 QRSD: 100 T: 4 QT: 395 QTc: 435 Interpretive Statements SINUS RHYTHM NONSPECIFIC ST & T-WAVE ABNORMALITY Compared to ECG 07/17/2023 01:14:35 No significant changes Electronically Signed On 07-17-2023 9:10:54 MANAGER APPLICATION by Nehemias Pérez M.D. [id number]
== END 2023-07-17 06:42 | disposition home or self-care (01) ==
PROVIDERS: Emergency Provider Emergency Medicine; PCP Internal Medicine
DX: I25.9 Chronic ischemic heart disease, unspecified (principal); R55 Syncope and collapse; Z79.02 Long term (current) use of antithrombotics/antiplatelets; Z79.82 Long term (current) use of aspirin; I10 Essential (primary) hypertension; I25.2 Old myocardial infarction
CPT/HCPCS: 70450; 71045; 80053; 81001; 83880; 84484; 85025; 85610; 85730; 93005; 99285

== ENCOUNTER → 2023-07-21 11:09 | Outpatient (BNVA) | payer MEDICARE, SELFPAY | PROVIDERS: PCP Internal Medicine; Visit Provider Nurse Practitioner Family | DX: I25.10 Atherosclerotic heart disease of native coronary artery without angina pectoris (principal); I11.9 Hypertensive heart disease without heart failure; Z79.82 Long term (current) use of aspirin | CPT/HCPCS: 99213 ==

== ENCOUNTER 2023-08-18 17:27 | Outpatient (CLI) | payer MEDICARE, SELFPAY ==
--- NOTE | 2023-08-18 17:45 | XRR_ITS ---
PROCEDURE INFORMATION: Exam: XR Abdomen Exam date and time: 08/18/2023 5:48 PM Age: 67 years old Clinical indication: Abdominal pain; Localized; Left lower quadrant (llq); Additional info: Abdominal pain, llq r10.32 TECHNIQUE: Imaging protocol: Radiologic exam of the abdomen. Views: Frontal supine view of the abdomen. 1 View. COMPARISON: CR (CHEST, ) 07/17/2023 1:42 AM FINDINGS: Nonobstructive bowel gas pattern with diffuse colonic stool/constipation. XR/XR KUB [id number] IMPRESSION: As above.
== END 2023-08-18 17:28 | disposition home or self-care (01) ==
PROVIDERS: PCP Internal Medicine; Visit Provider Nurse Practitioner Family
DX: R10.32 Left lower quadrant pain (principal)
CPT/HCPCS: 74018

== ENCOUNTER → 2023-09-19 15:35 | Outpatient (BNVA) | payer MEDICARE, SELFPAY | PROVIDERS: PCP Internal Medicine; Visit Provider Internal Medicine | DX: R06.00 Dyspnea, unspecified (principal); I25.10 Atherosclerotic heart disease of native coronary artery without angina pectoris; E78.5 Hyperlipidemia, unspecified; I10 Essential (primary) hypertension; E03.9 Hypothyroidism, unspecified | CPT/HCPCS: 99214 ==

== ENCOUNTER 2023-10-04 14:04 | Oncology outpatient (recurring) (ONCR) | payer MEDICARE, SELFPAY ==
[2023-10-04 14:37] LABS: Basophils % 0.6 %; Eosinophils # 0.2 10^3/uL (0.0-0.8); Eosinophils % 4.2 %; Lymphocytes # 1.3 10^3/uL (0.8-4.8); Lymphocytes % 24.3 %; Mean Corpuscular HGB Conc 31.5 g/dL (30-55); Mean Corpuscular Volume 85.7 fl (85-98); Mean Platelet Volume 10.6 fL (7.4-10.4); Monocytes # 0.4 10^3/uL (0.2-0.9); Monocytes % 8.1 %; Neutrophils # 3.41 10^3/uL (1.8-7.7); Neutrophils % 62.6 %; Nucleated Red Blood Cells % 0 %; Platelet Count 263 10^3/cmm (157-399); Red Blood Count 4.67 10^6/uL (3.85-5.65); Red Cell Distribution Width 18.8 % (12.1-15.1); White Blood Count 5.44 10^3/uL (3.29-11.43)
[2023-10-04 15:03] LABS: Alanine Aminotransferase 15 U/L (0-33); Alkaline Phosphatase 127 U/L (35-105); Anion Gap 13.9 (5-19); Aspartate Amino Transferase 17 U/L (0-32); Blood Urea Nitrogen 14 mg/dL (8-23); Calcium 9.1 mg/dL (8.5-10.5); Carbon Dioxide 27 mmol/L (22-29); Chloride 101 mmol/L (98-107); Ferritin 11 ng/mL (15-150); Glomerular Filtration Rate 71.1 mL/min (90-130); Glucose 89 mg/dL (65-115); Iron 33 ug/dL (37-145); Osmolality Calculated 284 mOsm/kg (285-295); Percent Saturation 11.8 % (20-50); Potassium 4.9 mmol/L (3.5-5.1); Sodium 137 mmol/L (136-145); Total Bilirubin 0.3 mg/dL (0.15-1.2); Total Iron Binding Capacity 279 mcg/dl; Unsaturated Iron Binding 246 ug/dL (112-347)
== END 2023-10-22 23:59 | disposition home or self-care (01) ==
PROVIDERS: Internal Medicine; PCP Internal Medicine; Visit Provider Internal Medicine Medical Oncology
DX: D50.9 Iron deficiency anemia, unspecified (principal); I25.10 Atherosclerotic heart disease of native coronary artery without angina pectoris; Z95.5 Presence of coronary angioplasty implant and graft; Z79.02 Long term (current) use of antithrombotics/antiplatelets; I10 Essential (primary) hypertension
CPT/HCPCS: 36415; 80053; 82728; 83540; 83550; 85025; 99214

== ENCOUNTER 2024-02-27 05:00 | Emergency (ER) | payer MEDICARE, SELFPAY ==
[2024-02-27 05:13] VITALS: BP 127/88; PULSE 74; RESP 15; TEMP 36.8; O2SAT 93; BMI 33.6
[2024-02-27 05:30] LABS: Charge for UA Resulting for Rev
[2024-02-27 05:31] LABS: Bilirubin Urine Negative (Negative); Blood Urine 3+ (Negative); Glucose Urine UA Negative (Normal); Ketones Urine Negative (Negative); Leukocyte Esterase Urine 3+ (Negative); Nitrate Urine Positive (Negative); Protein Urine 2+ (Negative); Specific Gravity, Urine 1.019 (1.005-1.030); Urine Appearance Turbid (CLEAR); pH Urine 5.5 (5-7)
[2024-02-27 05:36] LABS: Bacteria Urine 1+ /hpf; RBC Urine >100 /hpf (0-2); Squamous Epithelial Cell Urine 0-5 /hpf (0-5); WBC Urine >100 /hpf (0-5)
[2024-02-27 05:40] LABS: Urine Color Yellow (Yellow)
[2024-02-27 05:41] LABS: Add Urine Culture? Yes
--- NOTE | 2024-02-27 05:46 | ED_ITS ---
HPI - Female Genitourinary 2 General: Chief complaint: Urogenital-Female Stated complaint: Vaginal pain Time Seen by Provider: 02/27/24 05:32 History of Present Illness: 65-year-old female presents emergency ro om with complaint of suprapubic pain and discomfort it has been going on for the last several days with progressively worsening. Frequency urgency and dysuria. No fever. No vaginal discharge or bleeding no hematuria noted she has no history of renal stones. Denies flank pain. MD elicited complaint: dysuria and UTI Onset (ago): day(s) Severity: severe Consistency: constant Vaginal discharge: none Vaginal bleeding: none Urinary symptoms: Dysuria Exacerbating factors: urination Relieving factors: none Associated symptoms: Reports abdominal pain (Suprapubic) and nausea; Deny fevers/chills or vaginal discharge Review of Systems 2 Const: Denies: fever(s) or chills Card: Denies: chest pain Resp: Denies: dyspnea GI: Reports: abdominal pain (Suprapubic) and nausea; Denies: vomiting : Reports: dysuria, urinary frequency and urinary urgency; Denies: flank pain or vaginal discharge Musc: Denies: neck pain or back pain Skin/Breast: Denies: rash PFSH ED 2 PFSH: Medical History Hypertension Depression Hemochromatosis GERD (gastroesophageal reflux disease) Hypothyroidism Dyslipidemia H/O acute myocardial infarction Ischemic heart disease ASHD (arteriosclerotic heart disease) Diastolic dysfunction Surgical History S/P tonsillectomy S/P PTCA (percutaneous transluminal coronary angioplasty) Family History Mother Stroke Hyperlipidemia Hypertension CAD (coronary artery disease) Myocardial infarction Father CAD (coronary artery disease) Hypertension Myocardial infarction Sister Cancer BREAST Social History Smoking and tobacco/nicotine status: never used tobacco/nicotine Alcohol intake: never Substance/Drug Use: never Household members: spouse Marital status: Physical Exam 2 Const: GENERAL APPEARANCE: cooperative ORIENTATION/CONSCIOUSNESS: Yes awake, Yes oriented to person, Yes oriented to place and Yes oriented to time HENMT: COMMON NORMALS: normocephalic, atraumatic and hearing grossly normal bilaterally HEAD & SCALP: normocephalic and atraumatic Resp: COMMON NORMALS: normal respiratory effort, No retractions, No use of accessory muscles and clear to auscultation bilaterally AUSCULTATION: clear to auscultation bilaterally Cardio: COMMON NORMALS: regular rate, regular rhythm and No murmurs present (Cardio) RATE: regular rate RHYTHM: regular rhythm GI: COMMON NORMALS: Soft to palpation and No hepatosplenomegaly present A USCULTATION: Yes normoactive bowel sounds PALPATION: Yes Soft to palpation, No Tenderness to palpation present (GI), No Guarding due to palpation present (GI) and Yes No hepatosplenomegaly present Extremity: COMMON NORMALS: normal to inspection, capillary refill normal, no clubbing, cyanosis or edema, no calf tenderness and no pedal edema Neuro: SENSORIUM/ORIENTATION: Yes oriented to person, Yes oriented to place and Yes oriented to time Skin: COMMON NORMALS: no rashes or lesions noted GENERAL SKIN EXAM: no rashes or lesions noted Course 2 Vital Signs: Vital signs: Vital Signs Temperature 98.3 F 02/27/24 05:13 Pulse Rate 71 02/27/24 06:28 Respiratory Rate 15 02/27/24 06:17 Blood Pressure 124/59 02/27/24 06:28 Pulse Oximetry 96 02/27/24 06:28 Oxygen Delivery Me thod Room Air 02/27/24 06:28 MDM - Female Medical Decision Making No leukocytosis creatinine normal. No renal colic. UA shows cystitis given Pyridium morphine and fluids in the emergency room as well as a single dose of ceftriaxone discharged home on cefdinir urine cultured follow-up with primary care if not improving Medical Records I reviewed the patient's medical records. Lab Data I reviewed the patient's lab results. 02/27/24 06:12 02/27/24 06:12 Laboratory Results WBC 8.54 10^3/uL (3.29-11.43) 02/27/24 06:12 RBC 4.83 10^6/uL (3.85-5.65) 02/27/24 06:12 Hgb 15.20 g/dL (11.27-16.99) 02/27/24 06:12 Hct 45.9 % (36-47) 02/27/24 06:12 MCV 95.0 fl (85-98) 02/27/24 06:12 MCH 31.5 pg (27-33) 02/27/24 06:12 MCHC 33.1 g/dL (30-55) 02/27/24 06:12 RDW 14.5 % (12.1-15.1) 02/27/24 06:12 Plt Count 224 10^3/cmm (157-399) 02/27/24 06:12 MPV 10.4 fL (7.4-10.4) 02/27/24 06:12 Neut % (Auto) 57.3 % 02/27/24 06:12 Lymph % (Auto) 31.3 % 02/27/24 06:12 [place] % (Auto) 7.7 % 02/27/24 06:12 Eos % (Auto) 2.8 % 02/27/24 06:12 Baso % (Auto) 0.5 % 02/27/24 06:12 Neut # (Auto) 4.90 10^3/uL (1.8-7.7) 02/27/24 06:12 Lymph # (Auto) 2.7 10^3/uL (0.8-4.8) 02/27/24 06:12 [place] # (Auto) 0.7 10^3/uL (0.2-0.9) 02/27/24 06:12 Eos # (Auto) 0.2 10^3/uL (0.0-0.8) 02/27/24 06:12 Baso # (Auto) 0.0 10^3/uL (0.0-0.1) 02/27/24 06:12 Nucleated RBC % (auto) 0 % 02/27/24 06:12 Nucleated RBCs # 0.0 /100WBC 02/27/24 06:12 Sodium 140 mmol/L (136-145) 02/27/24 06:12 Potassium 4.1 mmol/L (3.5-5.1) 02/27/24 06:12 Chloride 104 mmol/L (98-107) 02/27/24 06:12 Carbon Dioxide 24 mmol/L (22-29) 02/27/24 06:12 Anion Gap 16.1 (5-19) 02/27/24 06:12 BUN 18 mg/dL (8-23) 02/27/24 06:12 Creatinine 1.0 mg/dL (0.5-0.9) H 02/27/24 06:12 GFR Calculation 55.0 mL/min (90-130) L 02/27/24 06:12 Glucose 107 mg/dL (65-115) 02/27/24 06:12 Calculated Osmolality 292 mOsm/kg (285-295) 02/27/24 06:12 Calcium 9.3 mg/dL (8.5-10.5) 02/27/24 06:12 Total Bilirubin 0.3 mg/dL (0.15-1.2) 02/27/24 06:12 AST 12 U/L (0-32) 02/27/24 06:12 ALT 13 U/L (0-33) 02/27/24 06:12 Alkaline Phosphatase 133 U/L (35-105) H 02/27/24 06:12 Total Protein 7.3 g/dL (6.6-8.7) 02/27/24 06:12 Albumin 4.0 g/dL (3.5-5.2) 02/27/24 06:12 Globulin 3.3 g/dL (1.3-4.6) 02/27/24 06:12 Urine Color Yellow (Yellow) 02/27/24 05:24 Urine Appearance Turbid (CLEAR) A 02/27/24 05:24 Urine pH 5.5 (5-7) 02/27/24 05:24 Ur Specific [place] 1.019 (1.005-1.030) 02/27/24 05:24 Urine Protein 2+ (Negative) A 02/27/24 05:24 Urine Glucose (UA) Negative (Normal) 02/27/24 05:24 Urine Ketones Negative (Negative) 02/27/24 05:24 Urine Blood 3+ (Negative) A 02/27/24 05:24 Urine Nitrate Positive (Negative) A 02/27/24 05:24 Urine Bilirubin Negative (Negative) 02/27/24 05:24 Urine Urobilinogen 1.0 mg/dL (Negative) 02/27/24 05:24 Ur Leukocyte Esterase 3+ (Negative) A 02/27/24 05:24 Urine RBC >100 /hpf (0-2) H 02/27/24 05:24 Urine WBC >100 /hpf (0-5) H 02/27/24 05:24 Ur Squamous Epith Cells 0-5 /hpf (0-5) 02/27/24 05:24 Amorphous Sediment Not Reportable 02/27/24 05:24 Urine Bacteria 1+ /hpf (NONE) H 02/27/24 05:24 Hyaline Casts 2.40 /lpf 02/27/24 05:24 No radiology studies performed this visit Discharge Plan Discharge Patient Disposition: Home Clinical Impression: Cystitis Condition: Stable Prescriptions: New cefdinir 300 mg capsule 300 mg PO BID Qty: 14 0RF Pyridium 200 mg tablet 200 mg PO TID Qty: 6 0RF No Action albuterol sulfate 90 mcg/actuation HFA aerosol inhaler 2 puff INHALATION Q6H PRN (Reason: Shortness Of Breath) cyclobenzaprine 10 mg tablet 10 mg PO BEDTIME levothyroxine [Synthroid] 75 mcg tablet 75 mcg PO DAILY duloxetine 60 mg capsule,delayed release(DR/EC) 60 mg PO BID hydroxyzine HCl 25 mg tablet 100 mg PO BEDTIME pantoprazole 40 mg tablet,delayed release (DR/EC) 40 mg PO BID ropinirole 0.25 mg tablet 0.25 mg PO DAILY nitroglycerin [Nitrostat] 0.4 mg tablet, sublingual 0.4 mg SUBLINGUAL Q5M PRN (Reason: Chest Pain) Qty: 25 1RF Rx Instructions: do not exceed 3 doses per episode melatonin 10 mg capsule 10 mg PO DAILY Patient Comments: before bedtime acetaminophen 500 mg capsule 500 mg PO Q6H PRN (Reason: Pain) clopidogrel 75 mg tablet 75 mg PO DAILY Qty: 90 3RF metoprolol tartrate 50 mg tablet See Rx Instructions .ROUTE .COMPLEX Qty: 180 3RF Dose Instruction: TAKE 1 TABLET BY MOUTH TWICE DAILY, ONE TAB AT 9AM AND ONE TAB AT 9PM Rx Instructions: TAKE 1 TABLET BY MOUTH TWICE DAILY, ONE TAB AT 9AM AND ONE TAB AT 9PM aspirin 81 mg Tablet,Delayed Release (Dr/Ec) 81 mg PO DAILY@10 rosuvastatin 40 mg tablet 40 mg PO QPM Discharge Orders: Discharge ED (Routine); Ordered 02/27/24 Ordered By: Chevy Chavez Referrals: Claudia Kong MD [Primary Care Provider] - Patient Instructions: Urinary Tract Infection in Women (ED), Opioid Safety, Pain Management Activity Restrictions/Additional Instructions: Thank you for choosing [facility] for your healthcare needs today. It is very important that you follow up as instructed or that you return to the Emergency Department should you have concerns or if your condition changes or worsens in any way. Coding Level of Care Code ED Stacker Driver for Gustabo Franz
[2024-02-27] MEDS: ondansetron 2 mg/ML SDV 2 mL 4 MG IVP (06:16)
[2024-02-27] MEDS: phenazopyridine 100 mg Tablet 200 MG PO (06:16)
[2024-02-27 06:17] VITALS: RESP 15
[2024-02-27] MEDS: sodium chloride 0.9% 500 ML 999 ML IV (06:17)
[2024-02-27] MEDS: morphine 4 mg/mL SDV 1 mL 2 MG IVP (06:17)
[2024-02-27 06:24] LABS: Basophils % 0.5 %; Eosinophils # 0.2 10^3/uL (0.0-0.8); Eosinophils % 2.8 %; Hematocrit 45.9 % (36-47); Lymphocytes # 2.7 10^3/uL (0.8-4.8); Lymphocytes % 31.3 %; Mean Corpuscular HGB Conc 33.1 g/dL (30-55); Mean Corpuscular Hemoglobin 31.5 pg (27-33); Mean Platelet Volume 10.4 fL (7.4-10.4); Monocytes # 0.7 10^3/uL (0.2-0.9); Monocytes % 7.7 %; Neutrophils % 57.3 %; Nucleated Red Blood Cells % 0 %; Platelet Count 224 10^3/cmm (157-399); Red Blood Count 4.83 10^6/uL (3.85-5.65); Red Cell Distribution Width 14.5 % (12.1-15.1); White Blood Count 8.54 10^3/uL (3.29-11.43)
[2024-02-27 06:28] VITALS: BP 124/59; PULSE 71; O2SAT 96
[2024-02-27 06:44] LABS: Alanine Aminotransferase 13 U/L (0-33); Alkaline Phosphatase 133 U/L (35-105); Anion Gap 16.1 (5-19); Aspartate Amino Transferase 12 U/L (0-32); Blood Urea Nitrogen 18 mg/dL (8-23); Calcium 9.3 mg/dL (8.5-10.5); Carbon Dioxide 24 mmol/L (22-29); Chloride 104 mmol/L (98-107); Creatinine Clr Calc Pharmacy 55.2481; Globulin 3.3 g/dL (1.3-4.6); Glucose 107 mg/dL (65-115); Osmolality Calculated 292 mOsm/kg (285-295); Potassium 4.1 mmol/L (3.5-5.1); Sodium 140 mmol/L (136-145); Total Bilirubin 0.3 mg/dL (0.15-1.2); Total Protein 7.3 g/dL (6.6-8.7)
[2024-02-27] MEDS: cefTRIAXone 1,000 mg SDV 1000 MG IVP (06:46)
[2024-02-27 07:08] VITALS: BP 114/59; PULSE 62; RESP 16; O2SAT 92
== END 2024-02-27 07:10 | disposition home or self-care (01) ==
PROVIDERS: Emergency Medicine; Emergency Provider Family Medicine; PCP Internal Medicine
DX: N30.90 Cystitis, unspecified without hematuria (principal); Z79.02 Long term (current) use of antithrombotics/antiplatelets; Z79.82 Long term (current) use of aspirin; I10 Essential (primary) hypertension; E78.5 Hyperlipidemia, unspecified; I25.2 Old myocardial infarction
CPT/HCPCS: 36415; 80053; 81003; 81015; 85025; 87040; 87077; 87086; 87186; 96361; 96374; 96375; 99284; J0696; J2270; J2405; J7040

== ENCOUNTER 2024-07-18 13:27 | Emergency (ER) | payer MEDICARE, SELFPAY ==
[2024-07-18 14:04] VITALS: BP 139/62; PULSE 77; RESP 18; TEMP 36.6; O2SAT 92; BMI 32.8
--- NOTE | 2024-07-18 14:58 | XRR_ITS ---
PROCEDURE INFORMATION: Exam: XR Left Knee Exam date and time: 07/18/2024 3:23 PM Age: 68 years old Clinical indication: Pain; Knee; Left; Additional info: Posteiror knee pain TECHNIQUE: Imaging protocol: Radiologic exam of the left knee. Views: 3 views. COMPARISON: [place] [id number] 07/07/2024 2:09 PM FINDINGS: Bones/joints: Osseous structures are intact. Negative for fracture. Mild DJD of the patellofemoral joint space. Soft tissues: Normal. XR/XR knee LT 3V* [id number] IMPRESSION: No acute findings. Mild DJD of the patellofemoral joint space.
--- NOTE | 2024-07-18 14:58 | USCV_ITS ---
AdwoaBryson Age: 68 Gender: F : 1955 Exam Date: 07/18/2024 15:08 Ordering Phys: Massimo Jasso Technologist: JUAN Exam Location: [facility] Indication: lt sided pain Risk Factors: Previous Vascular Surgery: RIGHT LEFT BP: 139.0 / 62.00 BP: 130.0/ 59.00 0 0 Waveform Velocity (cm/s) Velocity (cm/s) Waveform Iliac Prox 120.5 Triphasic Iliac Mid 131.5 Triphasic Iliac Distal 133.8 Triphasic EDITOR FARM JOURNAL 130.0 Triphasic SFA Prox 135.0 Triphasic SFA Mid 108.0 Triphasic SFA Dist 99.0 Triphasic POP 70.0 Triphasic POWER GENERATION TECHNICIAN 48.0 Triphasic DPA 60.0 Triphasic JO ANN 0.9 FINDINGS Intimal thickening in the iliac and femoral artery on the right side Normal arterial Doppler waveforms Resting JO ANN of 0.9 CONCLUSIONS 1. Borderline low resting JO ANN on the left side. 2. Intimal thickening in the iliac and femoral arteries on the left side with no significant arterial obstruction Dr Jorge Sandoval MD [facility] (Electronically Signed) Final Date: 21 July 2024 19:27 S
--- NOTE | 2024-07-18 15:17 | ED_ITS ---
HPI - Extremity Problem General: Chief complaint: Extremity Injury, Lower Stated complaint: Left leg pain Time Seen by Provider: 07/18/24 14:29 Source: patient Mode of arrival: ambulatory Limitations: no limitations History of Present Illness: Patient is a 68-year-old female who presents to the emergency department for the second time in a week due to continued left leg pain. Patient no longer repor ting back pain, stating it was primarily to the posterior left leg and she is sure that she has a clot at this time. With her last visit on 07/07, had DVT ultrasound that ruled this out. Patient reports history of cardiac stents and that she is prone to getting clots. She states pain at this time is to the back of the left knee and radiates down the left calf, it is only made better when she straightens her leg out. She is denying any unilateral calf swelling or skin changes. Denies any distal paralysis or sensory changes. She has not tried any medications for her pain, and has not followed up with primary care for this. No history of trauma or surgeries in the joints of the left lower extremity. Vital stable at this time. MD Complaint: extremity pain Location: left and lower extremity Radiation: distal Relieving factors: other (Straightening the left leg) Exacerbating factors: range of motion Associated symptoms: Deny chest pain, fever(s) or rash Related Data Home Medications Medication Instructions Recorded Confirmed albuterol sulfate 90 mcg/actuation 2 puff inhalation Q6H PRN 12/30/19 10/04/23 aerosol inhaler Shortness Of Breath cyclobenzaprine 10 mg tablet 10 mg PO BEDTIME 12/30/19 10/04/23 levothyroxine 75 mcg tablet 75 mcg PO DAILY 12/30/19 10/04/23 (Synthroid) duloxetine 60 mg capsule,delayed 60 mg PO BID 02/18/20 10/04/23 release hydroxyzine HCl 25 mg tablet 100 mg PO BEDTIME 08/18/20 10/04/23 pantoprazole 40 mg tablet,delayed 40 mg PO BID 08/18/20 10/04/23 release aspirin 81 mg tablet,delayed 81 mg PO DAILY@10 10/27/20 10/04/23 release ropinirole 0.25 mg tablet 0.25 mg PO DAILY 11/18/22 10/04/23 acetaminophen 500 mg capsule 500 mg PO Q6H PRN Pain 06/28/23 10/04/23 melatonin 10 mg capsule 10 mg PO DAILY 06/28/23 10/04/23 rosuvastatin 40 mg tablet 40 mg PO QPM 07/12/23 10/04/23 Previous Rx's Medication Instructions Recorded nitroglycerin 0.4 mg sublingual 0.4 mg sublingual Q5M PRN Chest 11/18/22 tablet (Nitrostat) Pain #25 tabs clopidogrel 75 mg tablet 75 mg PO DAILY #90 tabs 04/21/23 metoprolol tartrate 50 mg tablet See Rx Instructions .Route 05/12/23 .COMPLEX #180 tabs cefdinir 300 mg capsule 300 mg PO BID #14 caps 02/27/24 phenazopyridine 200 mg tablet 200 mg PO TID 6 doses #6 tabs 02/27/24 (Pyridium) prednisone 20 mg tablet 20 mg PO DAILY 5 days #5 tabs 07/18/24 Allergies Allergy/AdvReac Type Severity Reaction Status Date / Time ezetimibe [From Vytorin] Allergy Unknown Unknown Verified 07/18/24 14:09 trandolapril [From Mavik] Allergy hives Verified 07/18/24 14:09 Review of Systems General: Reports: 10 or more systems reviewed and unremarkable except in HPI and below Const: Denies: fever(s) or chills Card: Denies: chest pain Resp: Denies: dyspnea or productive cough GI: Denies: abdominal pain, nausea, vomiting or diarrhea : Denies: flank pain Musc: Reports: extremity pain (Left lower); Denies: neck pain, back pain, extremity swelling, joint pain, joint swelling, joint redness, joint warmth, limited range of motion or muscle weakness Skin/Breast: Denies: rash Neuro: Denies: headache(s), numbness in extremities or weakness in extremities PFSH ED PFSH: Medical History Hypertension Depression Hemochromatosis GERD (gastroesophageal reflux disease) Hypothyroidism Dyslipidemia H/O acute myocardial infarction Ischemic heart disease ASHD (arteriosclerotic heart disease) Diastolic dysfunction Surgical History S/P tonsillectomy S/P PTCA (percutaneous transluminal coronary angioplasty) Family History Mother Stroke Hyperlipidemia Hypertension CAD (coronary artery disease) Myocardial infarction Father CAD (coronary artery disease) Hypertension Myocardial infarction Sister Cancer BREAST Social History Smoking and tobacco/nicotine status: never used tobacco/nicotine Alcohol intake: never Substance/Drug Use: never Household members: spouse Marital status: Physical Exam Const: COMMON NORMALS: no acute distress, patient oriented x3, no limitations, healthy appearing, alert and well nourished HENMT: COMMON NORMALS: normocephalic and atraumatic HEAD & SCALP: normocephalic and atraumatic Neck/C-Spine: COMMON NORMALS: full ROM, supple and no meningeal signs Resp: COMMON NORMALS: normal respiratory effort, No use of accessory muscles and clear to auscultation bilaterally AUSCULTATION: clear to auscultation bilaterally Cardio: COMMON NORMALS: regular rate and regular rhythm RATE: regular rate RHYTHM: regular rhythm Extremity: COMMON NORMALS: normal to inspection, full ROM, capillary refill normal, no joint enlargement, no clubbing, cyanosis or edema and no pedal edema NARRATIVE EXTREMITY EXAM: 2+ dorsalis pedis pulse. No coolness to the left lower extremity when compared to the right. No unilateral calf swelling of the left. Negative Homans' sign. Positive reproducible tenderness to palpation to the proximal left calf which extends into the popliteal space. However there is no palpable cord here. Negative anterior knee joint exam. Neuro: COMMON NORMALS: patient oriented x3, moves all extremities, no focal motor deficits and no sensory deficits noted SENSORIUM/ORIENTATION: Yes alert MENINGEAL SIGNS: Yes no meningeal signs Skin: COMMON NORMALS: no rashes or lesions noted GENERAL SKIN EXAM: no rashes or lesions noted Course Vital Signs: Vital signs: Vital Signs Temperature 97.9 F 07/18/24 14:04 Pulse Rate 77 07/18/24 14:04 Respiratory Rate 18 07/18/24 14:04 Blood Pressure 139/62 07/18/24 14:04 Pulse Oximetry 92 07/18/24 14:04 Oxygen Delivery Me thod Room Air 07/18/24 14:04 MDM - Extremity (Nontraumatic) Medical Decision Making Patient presented with recurring left knee pain. Was seen here a week ago, diagnosed with unspecific pain after negative DVT ultrasound. States here presenting with same symptoms and she is confident that she has a DVT. On physical exam she had good peripheral pulses, there was no asymmetric swelling or overlying skin changes, no concern for thrombus. Most of her pain was to the proximal posterior calf, denies any trauma to her knee and any previous surgeries to her left lower extremity. She was very anxious, because of this ruled out arterial thrombus with ultrasound and ruled out any intra-articular pathology of the left knee with an x-ray. With her negative physical exam and negative imaging, does not appear to be anything acute and will have her follow- up with primary care for reevaluation and to make sure that this is not needing an MRI. On x-ray there was mild DJD so we will try low-dose steroid to see if this helps at all. Otherwise gave general return precautions and patient agrees with this plan. She is endorsing relief that this is not a blood clot. Lab Data Radiology Impressions Knee X-Ray 07/18/24 14:58 IMPRESSION: No acute findings. Mild DJD of the patellofemoral joint space. All radiology interpretation(s) finalized by discharge Discharge Plan Discharge Patient Disposition: Home Clinical Impression: Degenerative joint disease of knee, left Qualifiers: Osteoarthritis type: unspecified Qualified Code(s): M17.12 - Unilateral primary osteoarthritis, left knee Condition: Stable Prescriptions: New prednisone 20 mg tablet 20 mg PO DAILY 5 Days Qty: 5 0RF No Action albuterol sulfate 90 mcg/actuation HFA aerosol inhaler 2 puff INHALATION Q6H PRN (Reason: Shortness Of Breath) cyclobenzaprine 10 mg tablet 10 mg PO BEDTIME levothyroxine [Synthroid] 75 mcg tablet 75 mcg PO DAILY duloxetine 60 mg capsule,delayed release(DR/EC) 60 mg PO BID hydroxyzine HCl 25 mg tablet 100 mg PO BEDTIME pantoprazole 40 mg tablet,delayed release (DR/EC) 40 mg PO BID ropinirole 0.25 mg tablet 0.25 mg PO DAILY nitroglycerin [Nitrostat] 0.4 mg tablet, sublingual 0.4 mg SUBLINGUAL Q5M PRN (Reason: Chest Pain) Qty: 25 1RF Rx Instructions: do not exceed 3 doses per episode melatonin 10 mg capsule 10 mg PO DAILY Patient Comments: before bedtime acetaminophen 500 mg capsule 500 mg PO Q6H PRN (Reason: Pain) clopidogrel 75 mg tablet 75 mg PO DAILY Qty: 90 3RF metoprolol tartrate 50 mg tablet See Rx Instructions .ROUTE .COMPLEX Qty: 180 3RF Dose Instruction: TAKE 1 TABLET BY MOUTH TWICE DAILY, ONE TAB AT 9AM AND ONE TAB AT 9PM Rx Instructions: TAKE 1 TABLET BY MOUTH TWICE DAILY, ONE TAB AT 9AM AND ONE TAB AT 9PM aspirin 81 mg Tablet,Delayed Release (Dr/Ec) 81 mg PO DAILY@10 rosuvastatin 40 mg tablet 40 mg PO QPM cefdinir 300 mg capsule 300 mg PO BID Qty: 14 0RF Pyridium 200 mg tablet 200 mg PO TID Qty: 6 0RF Discharge Orders: Discharge ED (Routine); Ordered 07/18/24 Ordered By: Massimo Jasso Referrals: Claudia Kong MD [Primary Care Provider] - Patient Instructions: Arthritis (ED) Activity Restrictions/Additional Instructions: Steroids as prescribed. Gentle range of motion exercises. Elevate the extremity and ice. Please follow-up with your primary care provider to discuss your normal imaging and for any recurrence of pain. Coding Level of Care Code ED Aircraft Structural Fitter for Gustabo Franz
== END 2024-07-18 16:39 | disposition home or self-care (01) ==
PROVIDERS: Emergency Provider Physician Assistant; PCP Internal Medicine
DX: M17.12 Unilateral primary osteoarthritis, left knee (principal); Z79.02 Long term (current) use of antithrombotics/antiplatelets; Z79.82 Long term (current) use of aspirin; I10 Essential (primary) hypertension; E78.5 Hyperlipidemia, unspecified
CPT/HCPCS: 73562; 93926; 99284

== ENCOUNTER → 2024-07-22 12:20 | Outpatient (BNVA) | payer MEDICARE, SELFPAY | PROVIDERS: PCP Internal Medicine; Visit Provider Internal Medicine | DX: R06.00 Dyspnea, unspecified (principal); I25.10 Atherosclerotic heart disease of native coronary artery without angina pectoris; E78.5 Hyperlipidemia, unspecified; I10 Essential (primary) hypertension; E03.9 Hypothyroidism, unspecified | CPT/HCPCS: 99214 ==

== ENCOUNTER 2024-08-05 15:35 | Outpatient (CLI) | payer MEDICARE, SELFPAY ==
--- NOTE | 2024-08-05 15:39 | MR_ITS ---
WS: [id number] MRI LEFT KNEE HISTORY: PAIN IN LEFT KNEE COMPARISON: 07/18/2024 Anterior cruciate ligament: Intact. Posterior cruciate ligament: Intact. Medial collateral ligament: Intact. Posterior lateral corner structures: Intact. Medial menisci: Intact. Normal signal, size and shape. Lateral meniscus: Complex tear posterior horn of the lateral meniscus towards the meniscal root. Abno rmal signal extends throughout the meniscal root involving the superior and inferior articular surfac es. Extensor mechanism: Distal quadriceps tendon and patellar tendons are intact. Fluid and soft tissue: Small suprapatellar joint effusion. No River's cyst. Osseous and articular structures: Patellofemoral compartment: Mild narrowing of the patellofemoral joint space. Moderate diffuse chondr omalacia. No subchondral edema. Full-thickness cartilage defect involving the medial facet. Medial compartment: Moderate narrowing of the medial compartment with near complete loss of cartilage and small osteophytes. No fracture or marrow edema. Lateral compartment: Mild narrowing of the lateral compartment with moderate chondromalacia. No marro w edema or fracture. There is a small amount of edema in the intercondylar notch adjacent to the PCL. This is probably hung ma from the meniscal tear in the posterior horn of the lateral compartment. MR/MR knee LT wo con* [id number] IMPRESSION: 1. Complex tear posterior horn lateral meniscus at the meniscal root. Associat ed soft tissue edema extends into the intercondylar notch. 2. No ACL tear. 3. Mild patellofemoral joint space narrowing with moderate diffuse chondromala philip. Largest area of chondromalacia is a full-thickness defect in the medial fa cet. 4. Moderate narrowing the medial compartment with advanced chondromalacia. 5. Mild narrowing the lateral compartment with moderate chondromalacia. 6. No fractures or marrow edema.
== END 2024-08-05 15:36 | disposition home or self-care (01) ==
LOC: RAD 15:37
PROVIDERS: PCP Internal Medicine; Visit Provider Internal Medicine
DX: S83.272A Complex tear of lateral meniscus, current injury, left knee, initial encounter (principal); R93.6 Abnormal findings on diagnostic imaging of limbs; M94.262 Chondromalacia, left knee; M25.762 Osteophyte, left knee; X58.XXXA Exposure to other specified factors, initial encounter
CPT/HCPCS: 73721

== ENCOUNTER → 2024-09-03 14:38 | Outpatient (BNVA) | payer MEDICARE, SELFPAY | PROVIDERS: PCP Internal Medicine; Referring Provider Internal Medicine; Visit Provider Psychiatry & Neurology Neurology | DX: M47.26 Other spondylosis with radiculopathy, lumbar region (principal); R20.0 Anesthesia of skin; R20.2 Paresthesia of skin; M54.9 Dorsalgia, unspecified; M79.606 Pain in leg, unspecified | CPT/HCPCS: 95910 ==

== ENCOUNTER → 2024-09-13 14:07 | Outpatient (BNVA) | payer MEDICARE, SELFPAY | PROVIDERS: PCP Internal Medicine; Visit Provider Student in an Organized Health Care Education/Training Program | DX: M25.562 Pain in left knee (principal); M23.304 Other meniscus derangements, unspecified medial meniscus, left knee; M23.8X2 Other internal derangements of left knee | CPT/HCPCS: 20610; 73560; 73565; 99204; J3301 ==

== ENCOUNTER → 2024-11-27 10:30 | Outpatient (BNVA) | payer MEDICARE, SELFPAY | PROVIDERS: PCP Internal Medicine; Visit Provider Student in an Organized Health Care Education/Training Program | DX: M17.12 Unilateral primary osteoarthritis, left knee (principal); M23.307 Other meniscus derangements, unspecified meniscus, left knee | CPT/HCPCS: 99213 ==

== ENCOUNTER → 2024-12-18 13:49 | Outpatient (BNVA) | payer MEDICARE, SELFPAY | PROVIDERS: PCP Internal Medicine; Visit Provider Student in an Organized Health Care Education/Training Program | DX: M23.307 Other meniscus derangements, unspecified meniscus, left knee (principal); M17.12 Unilateral primary osteoarthritis, left knee | CPT/HCPCS: 20610; 99213; J7318 ==

== ENCOUNTER 2025-01-10 16:14 | Emergency (ER) | payer MEDICARE, SELFPAY ==
[2025-01-10 16:20] VITALS: BP 148/87; PULSE 84; RESP 16; TEMP 36.7; O2SAT 92
--- NOTE | 2025-01-10 16:31 | XRR_ITS ---
PROCEDURE INFORMATION: Exam: XR Right Hand Exam date and time: 01/10/2025 4:43 PM Age: 69 years old Clinical indication: Injury or trauma; Fall; Blunt trauma (contusions or hematomas); Hand; Right; Additional info: Injury/fall TECHNIQUE: Imaging protocol: Radiologic exam of the right hand. Views: 3 or more views. COMPARISON: No relevant prior studies available. FINDINGS: Bones/joints: There is an acute transverse fracture involving the distal end of the 5th metacarpal with significant anterior angulation noted. No other acute bony abnormality noted. Arthritic change involves multiple IP joints as well as the 1st carpometacarpal joint. Soft tissues: Normal. XR/XR hand RT min 3V* [id number] IMPRESSION: 1. Acute boxer fracture of the 5th metacarpal 2. Multifocal osteoarthritis
--- NOTE | 2025-01-10 16:31 | W.ED.FALL ---
HPI - Fall General: Chief Complaint: Extremity Injury, Upper Stated Complaint: rt hand inj Time Seen by Provider: 01/10/25 16:30 Source: patient Mode of arrival: ambulatory Limitations: no limitations History of Present Illness: Patient is a nice 69-year-old female presents to ED today for evaluation of a right hand injury that she sustained just prior to arrival. Patient states she was walking in her yard and the grass was high and she did not see a small hole. Patient states she tripped and fell. She states she sustained very minor abrasions to her bilateral anterior knees but is walking on these without difficulty or assistance. Her main complaint is pain to her ulnar right hand. Denies any other injuries or complaints at this time. Denies striking her head or LOC. No neck or back pain. MD complaint: fall Onset (ago): hour(s) Fall from: standing Fall witnessed: no Place fall occurred: home Loss of consciousness: None Prolonged down time: no Symptoms prior to fall: none Context: tripped/slipped Location of injury - extremities: Right: hand Severity: mild Associated symptoms-after fall: Reports no associated symptoms; Denies chest pain, difficulty walking, headache(s), lightheadedness or neck pain Related Data Home Medications ?Medication ?Instructions ?Recorded ?Confirmed albuterol sulfate 90 mcg/actuation 2 puff inhalation Q6H PRN 12/30/19 12/22/24 aerosol inhaler Shortness Of Breath cyclobenzaprine 10 mg tablet 10 mg PO BEDTIME 12/30/19 12/22/24 levothyroxine 75 mcg tablet 75 mcg PO DAILY 12/30/19 12/22/24 (Synthroid) duloxetine 60 mg capsule,delayed 60 mg PO BID 02/18/20 12/22/24 release hydroxyzine HCl 25 mg tablet 100 mg PO BEDTIME 08/18/20 12/22/24 pantoprazole 40 mg tablet,delayed 40 mg PO BID 08/18/20 12/22/24 release aspirin 81 mg tablet,delayed 81 mg PO DAILY@10 10/27/20 12/22/24 release ropinirole 0.25 mg tablet 0.25 mg PO DAILY 11/18/22 12/22/24 acetaminophen 500 mg capsule 500 mg PO Q6H PRN Pain 06/28/23 12/22/24 melatonin 10 mg capsule 10 mg PO DAILY 06/28/23 12/22/24 rosuvastatin 40 mg tablet 40 mg PO QPM 07/12/23 12/22/24 Previous Rx's ?Medication ?Instructions ?Recorded nitroglycerin 0.4 mg sublingual 0.4 mg sublingual Q5M PRN Chest 11/18/22 tablet (Nitrostat) Pain #25 tabs clopidogrel 75 mg tablet 75 mg PO DAILY #90 tabs 04/21/23 metoprolol tartrate 50 mg tablet See Rx Instructions .Route 05/12/23 .COMPLEX #180 tabs meloxicam 15 mg tablet 15 mg PO DAILY #30 tabs 12/10/24 Allergies Allergy/AdvReac Type Severity Reaction Status Date / Time ezetimibe (From Vytorin) Allergy Unknown Unknown Verified 11/27/24 10:52 trandolapril (From Mavik) Allergy hives Verified 11/27/24 10:52 Review of Systems Eyes: Denies: change in vision Card: Denies: chest pain, palpitations, lightheadedness, syncope or pre-syncope Resp: Denies: dyspnea Musc: Reports: extremity pain (R hand) and extremity swelling (lateral R hand); Denies: neck pain or back pain Skin/Breast: Reports: other (minor knee abrasions) Neuro: Denies: headache(s), numbness in extremities, weakness in extremities, sensory changes, difficulty walking or dizziness PFS ED PFSH: Medical History Hypertension Depression Hemochromatosis GERD (gastroesophageal reflux disease) Hypothyroidism Dyslipidemia H/O acute myocardial infarction Ischemic heart disease ASHD (arteriosclerotic heart disease) Diastolic dysfunction Surgical History S/P tonsillectomy S/P PTCA (percutaneous transluminal coronary angioplasty) Family History Mother Stroke Hyperlipidemia Hypertension CAD (coronary artery disease) Myocardial infarction Father CAD (coronary artery disease) Hypertension Myocardial infarction Sister Cancer BREAST Social History Smoking and tobacco/nicotine status: never used tobacco/nicotine Alcohol intake: never Substance/Drug Use: never Household members: spouse Marital status: Physical Exam Const: COMMON NORMALS: no acute distress, average body habitus, patient oriented x3, no limitations, healthy appearing, alert and well nourished GENERAL APPEARANCE: cooperative ORIENTATION/CONSCIOUSNESS: Yes awake, Yes oriented to person, Yes oriented to place and Yes oriented to time HENMT: COMMON NORMALS: normocephalic and atraumatic HEAD & SCALP: normal to inspection, normocephalic and atraumatic Eye: GENERAL EYE: appearance normal, both eyes and all related structures Neck/C-Spine: COMMON NORMALS: full ROM CERVICAL SPINE: Yes cervical ROM normal, No Cervical spine tenderness and No Paracervical muscle tenderness Back/Pelvis: COMMON NORMALS: thoracic and lumbar spine normal to inspection and no thoracic nor lumbar tenderness Extremity: COMMON NORMALS: full ROM and capillary refill normal GENERAL: Yes normal exam except as noted RIGHT UPPER EXTREMITY: Yes hand & digits (edema/ecchymosis overlying R 5th metacarpal) Right hand and digits: Yes neurovascular exam (normal) OTHER: minor bilateral anterior knee abrasions; full painless ROM Neuro: COMMON NORMALS: patient oriented x3, moves all extremities, no focal motor deficits, no sensory deficits noted and gait normal SENSORIUM/ORIENTATION: Yes alert, Yes oriented to person, Yes oriented to place and Yes oriented to time Course Vital Signs: Vital signs: Vital Signs Temperature 98.1 F 01/10/25 16:20 Pulse Rate 70 01/10/25 17:17 Respiratory Rate 16 01/10/25 16:20 Blood Pressure 123/63 01/10/25 17:17 Pulse Oximetry 89 L 01/10/25 17:17 Oxygen Delivery Me thod Room Air 01/10/25 16:20 MDM - Fall Medical Decision Making XR showing a fracture of her fifth metacarpal. She will be placed in an ulnar gutter splint will have her follow-up with ortho. Medical Records I reviewed the patient's medical records. Lab Data Radiology Impressions Hand X-Ray 01/10/25 16:31 IMPRESSION: 1. Acute boxer fracture of the 5th metacarpal 2. Multifocal osteoarthritis XR interpretation done by ED provider, pending radiology final review Discharge Plan Discharge Patient Disposition: Home Clinical Impression: Fracture of fifth metacarpal bone of right hand Condition: Stable Prescriptions: No Action albuterol sulfate 90 mcg/actuation HFA aerosol inhaler 2 puff INHALATION Q6H PRN (Reason: Shortness Of Breath) cyclobenzaprine 10 mg tablet 10 mg PO BEDTIME levothyroxine [Synthroid] 75 mcg tablet 75 mcg PO DAILY duloxetine 60 mg capsule,delayed release(DR/EC) 60 mg PO BID hydroxyzine HCl 25 mg tablet 100 mg PO BEDTIME pantoprazole 40 mg tablet,delayed release (DR/EC) 40 mg PO BID ropinirole 0.25 mg tablet 0.25 mg PO DAILY nitroglycerin [Nitrostat] 0.4 mg tablet, sublingual 0.4 mg SUBLINGUAL Q5M PRN (Reason: Chest Pain) Qty: 25 1RF Rx Instructions: do not exceed 3 doses per episode melatonin 10 mg capsule 10 mg PO DAILY Patient Comments: before bedtime acetaminophen 500 mg capsule 500 mg PO Q6H PRN (Reason: Pain) clopidogrel 75 mg tablet 75 mg PO DAILY Qty: 90 3RF metoprolol tartrate 50 mg tablet See Rx Instructions .ROUTE .COMPLEX Qty: 180 3RF Dose Instruction: TAKE 1 TABLET BY MOUTH TWICE DAILY, ONE TAB AT 9AM AND ONE TAB AT 9PM Rx Instructions: TAKE 1 TABLET BY MOUTH TWICE DAILY, ONE TAB AT 9AM AND ONE TAB AT 9PM meloxicam 15 mg tablet 15 mg PO DAILY Qty: 30 2RF aspirin 81 mg Tablet,Delayed Release (Dr/Ec) 81 mg PO DAILY@10 rosuvastatin 40 mg tablet 40 mg PO QPM Discharge Orders: Discharge ED (Routine); Ordered 01/10/25 Ordered By: Anne-Marie Greenwood Referrals: Claudia Kong MD [Primary Care Provider, Internal Medicine] Patient Instructions: Hand Fracture (DC), Boxer Fracture (ED) Activity Restrictions/Additional Instructions: As we discussed, case management should contact you early next week to help set you up with your follow-up orthopedic appointment. You need to stay in your splint until this appointment. Print Language: Zambian Coding Level of Care Code ED Community Organization Worker for Gustabo Franz
[2025-01-10 17:17] VITALS: BP 123/63; PULSE 70; O2SAT 89
--- NOTE | 2025-01-13 08:18 | DCPLANNER ---
Message sent to Ortho for follow up- XR showing a fracture of her fifth metacarpal. She will be placed in an ulnar gutter splint will have her follow-up with ortho.
== END 2025-01-10 17:21 | disposition home or self-care (01) ==
PROVIDERS: Emergency Provider Physician Assistant; PCP Internal Medicine
DX: S62.396A Other fracture of fifth metacarpal bone, right hand, initial encounter for closed fracture (principal); Z79.02 Long term (current) use of antithrombotics/antiplatelets; Z79.82 Long term (current) use of aspirin; E78.5 Hyperlipidemia, unspecified; I10 Essential (primary) hypertension; W01.0XXA Fall on same level from slipping, tripping and stumbling without subsequent striking against object, initial encounter
CPT/HCPCS: 29125; 73130; 99283

== ENCOUNTER → 2025-01-14 13:38 | Outpatient (BNVA) | payer MEDICARE, SELFPAY | PROVIDERS: PCP Internal Medicine; Visit Provider Orthopaedic Surgery | DX: S62.366A Nondisplaced fracture of neck of fifth metacarpal bone, right hand, initial encounter for closed fracture (principal); W19.XXXA Unspecified fall, initial encounter; Z46.89 Encounter for fitting and adjustment of other specified devices | CPT/HCPCS: 73130 ==

== ENCOUNTER 2025-01-14 14:22 | Outpatient (CLI) | payer MEDICARE, SELFPAY | END 2025-01-14 14:23 | disposition home or self-care (01) | LOC: SPT 14:23 | PROVIDERS: PCP Internal Medicine; Visit Provider Orthopaedic Surgery | DX: Z46.89 Encounter for fitting and adjustment of other specified devices (principal); S62.366D Nondisplaced fracture of neck of fifth metacarpal bone, right hand, subsequent encounter for fracture with routine healing; X58.XXXD Exposure to other specified factors, subsequent encounter | CPT/HCPCS: 99203; L3807 ==

== ENCOUNTER → 2025-04-28 13:37 | Outpatient (BNVA) | payer MEDICARE, SELFPAY | PROVIDERS: PCP Internal Medicine; Visit Provider Nurse Practitioner Family | DX: I25.10 Atherosclerotic heart disease of native coronary artery without angina pectoris (principal); I10 Essential (primary) hypertension; E78.5 Hyperlipidemia, unspecified; S83.207A Unspecified tear of unspecified meniscus, current injury, left knee, initial encounter; X58.XXXA Exposure to other specified factors, initial encounter; Z95.5 Presence of coronary angioplasty implant and graft | CPT/HCPCS: 99214 ==

== ENCOUNTER 2025-05-22 18:06 | Inpatient (IN) | payer MEDICARE, SELFPAY ==
--- OUTSIDE RECORDS SUMMARY | 2024-05-18 04:00 | XMS_ITS ---
Author Organization [facility] Address [address] [place] [address] Care Team Providers Care Educational Interpreter Name Role Phone Valerio Bhatti Primary Care Provider Unavailabl e Migration, Provider Unavailable Unavailable REASON FOR VISIT EMR-Fadi Encounters Encounter Location Date Provider Diagnosis Migrated_Facility 0 0 05/18/2024 Provider Migration Plan Of Treatment No Information Progress Notes * Gail ORONAeDOB:[birth year] (69 yo F)Acc No.[id number]:05/18/2024 Patient: Luh DEBBISEDA Bryson :1955 A ge:68 Y S ex:Female Address:[address], [place], [address] Subjective: * Chief Complaints: * E MR-Fadi * * Date:
--- OUTSIDE RECORDS SUMMARY | 2024-05-19 04:00 | XMS_ITS ---
Author Organization [facility] Address [address] [place] [address] Care Team Providers Care Nurses Superintendent Name Role Phone Valerio Bhatti Primary Care Provider Unavailabl e Migration, Provider Unavailable Unavailable Allergies Allergen (clinical drug ingredient) Drug/Non Drug Allergy documented on EMR Reaction Allergy Type Onset Date Status meloxicam Mobic Unknown Drug Allergy Active REASON FOR VISIT EMR-Fadi Medications Medication SIG (Take, Route, Frequency, Duration) Notes Start Date End Date Status Crestor *Pick strength-f [facility]m from [facility] for eRX* Active clopidogrel *Reorder from [facility] for eRx and Interaction Alerts* Active duloxetine *Reorder from [facility] for eRx and Interaction Alerts* Active cyclobenzaprine *Reorder from [facility] for eRx and Interaction Alerts* Active hydrOXYzine HCl *Pick strength-f orm from [facility] for eRX* Active Social History Social History Additional Details Category Social Info Options Details Migrated Social History Migrated Social History Alcoholic beverages? - No, Applying for disability? - No, Are you or is there a chance you could be - No, Currently on disability? - No, Drug or substance abuse? - No, Education - Grade School, exposure to toxins/poisonous substances at work - No, Involved in any legal proceedings or lawsuits? - No, Marital Status - , Nonprescription drug use? - No, Participation in detoxification or rehabilitation - No, Smoking - No, Smoking status (MU) - Unknown if ever smoked, Working currently? - No Encounters Encounter Location Date Provider Diagnosis Migrated_Facility 0 0 05/19/2024 Provider Migration Plan Of Treatment No Information Progress Notes * James PETERSOB:[birth year] (69 yo F)Acc No.[id number]:05/19/2024 Patient: Luh Bryson JORDAN :1955 A ge:68 Y S ex:Female Address:[address] [place] [address], [place], [address] Subjective: * Chief Complaints: * E MR-Fadi * Medical History: Asthma, C ancer, D epressed, H eart attack, H eart disease, H ypertension, M igraine, T hyroid disease, * Surgical History: aortic stent Tonsillectomy * Family History: M igrated Family History: : Cancer, H eart disease, S troke. * Social History: M igrated Social History: M igrated Social History: Alcoholic beverages? - No, A pplying for disability? - No, A re you or is there a chance you could be - No, C urrently on disability? - No, D rug or substance abuse? - No, E ducation - Grade School, e xposure to toxins/poisonous substances at work - No, I nvolved in any legal proceedings or lawsuits? - No, M arital Status - , Nonprescription drug use? - No, P articipation in detoxification or rehabilitation - No, S moking - No, S moking status (MU) - Unknown if ever smoked, W orking currently? - No. * Medications: T akingCrestor , Notes to Pharmacist: *Pick strength-form from [facility] for eRX*hydrOXYzine HCl , Notes to Pharmacist: *Pick strength-form from [facility] for eRX*clopidogrel , Notes to Pharmacist: *Reorder from [facility] for eRx and Interaction Alerts*cyclobenzaprine , Notes to Pharmacist: *Reorder from [facility] for eRx and Interaction Alerts*duloxetine , Notes to Pharmacist: *Reorder from [facility] for eRx and Interaction Alerts*Taking Crestor , Notes to Pharmacist: *Pick strength-form from [facility] for eRX*Taking hydrOXYzine HCl , Notes to Pharmacist: *Pick strength- form from [facility] for eRX*Taking clopidogrel , Notes to Pharmacist: *Reorder from [facility] for eRx and Interaction Alerts*Taking cyclobenzaprine , Notes to Pharmacist: *Reorder from [facility] for eRx and Interaction Alerts*Taking duloxetine , Notes to Pharmacist: *Reorder from [facility] for eRx and Interaction Alerts* * Allergies: M obic: Allergy * * Date:
[2025-05-22] VITALS (11 sets, daily range): BP systolic 128–164; BP diastolic 69–94; PULSE 78–85; RESP 16–20; TEMP 36.9; O2SAT 88–97; BMI 33.8; BMI 34.4
--- OUTSIDE RECORDS SUMMARY | 2025-05-22 18:14 | XMS_ITS | Patient Health Record ---
Author Organization [facility] Address [address] [place] [address] Care Team Providers Care Interactive Video Technician Name Role Phone Valerio Bhatti Primary Care Provider Unavailabl e Reason For Referral No Information Medications Medication SIG (Take, Route, Frequency, Duration) Notes Start Date End Date Status Crestor *Pick strength-f orm from [facility] for eRX* Active clopidogrel *Reorder from [facility] for eRx and Interaction Alerts* Active duloxetine *Reorder from [facility] for eRx and Interaction Alerts* [facility]* Active hydrOXYzine HCl *Pick strength-f orm from [facility] for eRX* Active Social History Social History [...] if ever smoked, Working currently? - No Plan Of Treatment No Information Insurance Providers Payer Name Payer Address Payer Phone Subscriber Number Group Number Insured Name Patient Relationship to Insured Coverage Start Date Coverage End Date [facility] Medicare Supplement [address] [place] [phone] [id number] Bryson Fleming Self - patient is the insured 2 Medical (General) History Surgical History Surgery Date(Month/Year) aortic stent Tonsillectomy
--- OUTSIDE RECORDS SUMMARY | 2025-05-22 18:14 | XMS_ITS | Clinical Summary ---
Author Organization [facility] Address [address] [place]: Epic Prelude ADT [place] [id number] Care Team Providers Care Data Virtualization Consultant Name Role Phone Unavailable Primary Care Provider Unavailabl e Encounters Date Type Department Care Team Description 05/14/2025 External Device Data [facility] ABSTRACTION Provider, Abstract 05/13/2025 External Device Data [facility]STRACTION Provider, Abstract 04/15/2025 External Device Data [facility]STRACTION Provider, Abstract 04/08/2025 External Device Data [facility]STRACTION Provider, Abstract 04/01/2025 External Device Data [facility] ABSTRACTION Provider, Abstract from Last 3 Months Immunizations Immunization Administration Dates Next Due (TDVAX)(7 YRS UP) TETANUS AN D DIPHTHERIA TOXOIDS, ADSORBED (2 LF OF TETANUS TOXOID AND 2 LF OF DIPHTHERIA TOXOID), 0.5ML (PF), IM 12/05/2000 Social History Tobacco Use Types Packs/Day Years Used Date Smoking Tobacco: Never Assessed Comments Unknown Sex and Gender Information Value Date Recorded Sex Assigned at Not on file 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
--- NOTE | 2025-05-22 18:19 | XRR_ITS ---
PROCEDURE INFORMATION: Exam: XR Chest Exam date and time: 05/22/2025 6:48 PM Age: 69 years old Clinical indication: Shortness of breath TECHNIQUE: Imaging protocol: Radiologic exam of the chest. Views: 1 view. COMPARISON: CR XR chest 1V portable [id number] 07/17/2023 1:42 AM FINDINGS: Lungs: Mild atelectasis or infiltrate at the left lung base. Pleural spaces: Unremarkable. No pleural effusion. No pneumothorax. Heart/Mediastinum: Unremarkable. No cardiomegaly. Bones/joints: Unremarkable. XR/XR chest 1V portable [id number] IMPRESSION: Slight opacity on the left.
--- NOTE | 2025-05-22 18:20 | ECG_ITS ---
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 Measurements Intervals [place] Rate: 74 P: 56 MS: 143 QRS: -15 QRSD: 93 T: -2 QT: 383 QTc: 425 Interpretive Statements SINUS RHYTHM NONSPECIFIC MILD ST-T WAVE ABNORMALITIES Compared to ECG 07/17/2023 04:04:08 NO SIGNIFICANT CHANGE Electronically Signed On 05-24-2025 20:51:29 CDT by Fabrice Pike M.D. [email or web address]
[2025-05-22 19:44] LABS: Hematocrit 43.2 % (36-47); Hemoglobin 14.10 g/dL (11.27-16.99); Mean Corpuscular HGB Conc 32.6 g/dL (30-55); Mean Corpuscular Hemoglobin 31.7 pg (27-33); Mean Corpuscular Volume 97.1 fl (85-98); Nucleated Red Blood Cells % 0 %; Platelet Count 222 10^3/cmm (157-399); Red Blood Count 4.45 10^6/uL (3.85-5.65); White Blood Count 9.89 10^3/uL (3.29-11.43)
--- NOTE | 2025-05-22 19:45 | PC.NURSE ---
PT states she just had a nasal swab this morning at Dr. Kong office and pt states she doesn't want another one done.
[2025-05-22 19:59] LABS: ABG PCO2 41.2 mmHg (35-45); ABG PH Result 7.42 (7.35-7.45); Alveolar-Arterial Oxygen Gradi 5.4 mmHg (5-10); Arterial Blood Gas Hematocrit 43.7 % (37-47); Blood Gas Allen Test Pos; Blood Gas Operator Identificat gerca; Blood Gas Sample Site Radial, right; Blood Gas Sample Type Arterial; Carboxyhemoglobin 1.1 %THgb (0.4-20.1); Glucose Level-ABG 100.0 mg/dL (70-115); HCO3 ABG 26.4 mmol/L (22-26); Ionized Calcium Level - ABG 1.2 mmol/L (1.1-1.4); Methemoglobin 0.2 % (0.4-1.5); Oxygen Saturation ABG 90.9; PO2 ABG 57.3 mmHg (80.0-100.0); PO2 FiO2 Ratio Arterial Blood 272; Potassium Level - ABG 4.0 mmol/L (3.5-5.0); Sodium Level - ABG 138.0 mmol/L (131-143)
[2025-05-22 20:10] LABS: Lactic Sepsis W/Reflex 1.1 mmol/L (0.5-2.2)
[2025-05-22 20:11] LABS: Troponin(5th) Baseline 11 ng/L (0-10)
--- NOTE | 2025-05-22 20:18 | W.ED.URI ---
HPI - URI/Sore Throat General: Chief Complaint: Upper Respiratory Infection Stated Complaint: Luann sent low o2 pnemonia History of Present Illness: Selected Entries 05/22/25 19:40 ED Triage Comment Pt states hx of he art problems . Pt states she wasn't going to come in t o ER but Dr. Kong advised pt to com e to ER for walkin g pnuemonia. Pt de nies fevers. Pt jameson s a cough producti ve, yellow sputum. PT states her O2 sats have been lo w at home and 91% at doctors office . Pt states she wa s put on ABTs and Steriods but pt st ates she didn't pi ck them up because the pharmacy was too slow PT also reports she was s upposed to have ho me oxygen but no one ever showed up . Pt states they did a nose swab in office and it was negative. Pt stat es she believes it was flu only. Pt has horse voice . Patient is a pleasant 69-year-old female with history of asthma, CAD, PCI proximal LAD 2022, on Plavix, aspirin, hypothyroidism, presents to the emergency room due to shortness of breath. Patient did go to her primary care physician today, and was ordered antibiotics, and oxygen for home. She is not on oxygen at home. She stated she had ongoing issues with her shortness of breath, and they did not deliver oxygen, or her antibiotic. This prompted her visit to the emergency room. She states her illness has been going on the last 3 days. She has increasing hoarseness over the last week, however shortness of breath is worsening over the last 3 days. Nonproductive loose cough. No subjective fevers, although she does not feel well. No sick contact that she is aware of. Associated symptoms: Deny chills, chest pain, fever(s) or headache(s) Related Data Home Medications ?Medication ?Instructions ?Recorded ?Confirmed albuterol sulfate 90 mcg/actuation 2 puff inhalation Q6H PRN 12/30/19 04/28/25 aerosol inhaler Shortness Of Breath cyclobenzaprine 10 mg tablet 10 mg PO BEDTIME 12/30/19 04/28/25 levothyroxine 75 mcg tablet 75 mcg PO DAILY 12/30/19 04/28/25 (Synthroid) duloxetine 60 mg capsule,delayed 60 mg PO BID 02/18/20 04/28/25 release pantoprazole 40 mg tablet,delayed 40 mg PO BID 08/18/20 04/28/25 release aspirin 81 mg tablet,delayed 81 mg PO DAILY@10 10/27/20 04/28/25 release ropinirole 0.25 mg tablet 0.25 mg PO DAILY 11/18/22 04/28/25 acetaminophen 500 mg capsule 500 mg PO Q6H PRN Pain 06/28/23 04/28/25 rosuvastatin 40 mg tablet 40 mg PO QPM 07/12/23 04/28/25 Previous Rx's ?Medication ?Instructions ?Recorded nitroglycerin 0.4 mg sublingual 0.4 mg sublingual Q5M PRN Chest 11/18/22 tablet (Nitrostat) Pain #25 tabs clopidogrel 75 mg tablet 75 mg PO DAILY #90 tabs 04/21/23 metoprolol tartrate 50 mg tablet See Rx Instructions .Route 05/12/23 .COMPLEX #180 tabs meloxicam 15 mg tablet 15 mg PO DAILY #30 tabs 12/10/24 right boxer splint #1 ea 01/14/25 Allergies Allergy/AdvReac Type Severity Reaction Status Date / Time ezetimibe (From Vytorin) Allergy Unknown Unknown Verified 05/22/25 18:15 trandolapril (From Mavik) Allergy hives Verified 05/22/25 18:15 Review of Systems General: Reports: 10 or more systems reviewed and unremarkable except in HPI and below Const: Reports: fatigue and malaise; Denies: fever(s) or chills Card: Denies: chest pain, palpitations, irregular heart rhythm, edema, swelling of feet/ankles, lightheadedness, syncope, pre-syncope, dyspnea on exertion, orthopnea or leg pain with exertion Resp: Reports: dyspnea and non-productive cough; Denies: productive cough Musc: Denies: extremity pain or extremity swelling Neuro: Denies: headache(s) or numbness in extremities PFS ED PFSH: Medical History (Updated 05/22/25 @ 21:05 by Eli Nath MD) Hypertension Depression Hemochromatosis GERD (gastroesophageal reflux disease) Hypothyroidism Dyslipidemia H/O acute myocardial infarction Ischemic heart disease ASHD (arteriosclerotic heart disease) Diastolic dysfunction Surgical History S/P tonsillectomy S/P PTCA (percutaneous transluminal coronary angioplasty) Family History Mother Stroke Hyperlipidemia Hypertension CAD (coronary artery disease) Myocardial infarction Father CAD (coronary artery disease) Hypertension Myocardial infarction Sister Cancer BREAST Social History Smoking and tobacco/nicotine status: never used tobacco/nicotine Alcohol intake: never Substance/Drug Use: never Household members: spouse Marital status: Physical Exam Const: COMMON NORMALS: no acute distress, average body habitus and patient oriented x3 HENMT: COMMON NORMALS: normocephalic and atraumatic HEAD & SCALP: normocephalic and atraumatic Eye: COMMON NORMALS: Equal, round and reactive pupils present, EOMs intact bilaterally and conjunctivae normal CONJUNCTIVA: Yes conjunctivae normal PUPIL: Yes Equal, round and reactive pupils present Neck/C-Spine: COMMON NORMALS: full ROM, no lymphadenopathy, supple and no meningeal signs Lymph: LYMPHATIC: no lymphadenopathy noted Chest: COMMONS NORMALS: normal inspection of the chest and normal palpation of entire chest wall Resp: COMMON NORMALS: normal respiratory effort EFFORT & INSPECTION: Yes able to speak in complete sentences (Conversational dyspnea) AUSCULTATION: rales (Isolated right lower lobe) and wheezes Cardio: COMMON NORMALS: regular rate and regular rhythm RATE: regular rate RHYTHM: regular rhythm GI: COMMON NORMALS: Normal to inspection, nondistended, normoactive bowel sounds present, Soft to palpation, non-tender and No hepatosplenomegaly present PALPATION: Yes Soft to palpation and Yes No hepatosplenomegaly present : COMMON NORMALS: Yes no CVA tenderness BLADDER/KIDNEY EXAM: Yes no CVA tenderness Back/Pelvis: COMMON NORMALS: no CVA tenderness Extremity: COMMON NORMALS: normal to inspection, full ROM, capillary refill normal and no clubbing, cyanosis or edema Neuro: COMMON NORMALS: patient oriented x3 MENINGEAL SIGNS: Yes no meningeal signs Course Consultations: Consultation #1: Hospitalist excepted Vital Signs: Vital signs: Vital Signs Temperature 98.5 F 05/22/25 18:09 Pulse Rate 78 05/22/25 22:16 Respiratory Rate 20 H 05/22/25 22:16 Blood Pressure 156/94 05/22/25 22:16 Pulse Oximetry 95 05/22/25 22:16 Oxygen Delivery Me thod Nasal Cannula 05/22/25 22:16 Oxygen Flow Rate 2 05/22/25 22:16 MDM - URI/Sore Throat Medical Decision Making Patient is a 69-year-old female with cough, congestion, primary oxygen saturation 88%, requiring 2 L/min, not normally on oxygen, reactive airway disease, presents for cough. She does have right lower lobe crackles, not typically present, although chest x-ray is negative. I do suspect an underlying pneumonia. Regardless she has underlying hypoxemia with a PaO2 of 57, and exacerbation of her COPD with her wheezing. She will be referred for admission inpatient. Medical Records I reviewed the patient's medical records. Lab Data I reviewed the patient's lab results. 05/22/25 18:50 05/22/25 18:50 Laboratory Results WBC 9.89 10^3/uL (3.29-11.43) 05/22/25 18:50 RBC 4.45 10^6/uL (3.85-5.65) 05/22/25 18:50 Hgb 14.10 g/dL (11.27-16.99) 05/22/25 18:50 Hct 43.2 % (36-47) 05/22/25 18:50 MCV 97.1 fl (85-98) 05/22/25 18:50 MCH 31.7 pg (27-33) 05/22/25 18:50 MCHC 32.6 g/dL (30-55) 05/22/25 18:50 RDW 12.9 % (12.1-15.1) 05/22/25 18:50 Plt Count 222 10^3/cmm (157-399) 05/22/25 18:50 MPV 10.9 fL (7.4-10.4) H 05/22/25 18:50 Neut % (Auto) 67.5 % 05/22/25 18:50 Lymph % (Auto) 17.0 % 05/22/25 18:50 Foster % (Auto) 8.1 % 05/22/25 18:50 Eos % (Auto) 6.7 % 05/22/25 18:50 Baso % (Auto) 0.4 % 05/22/25 18:50 Neut # (Auto) 6.68 10^3/uL (1.8-7.7) 05/22/25 18:50 Lymph # (Auto) 1.7 10^3/uL (0.8-4.8) 05/22/25 18:50 Foster # (Auto) 0.8 10^3/uL (0.2-0.9) 05/22/25 18:50 Eos # (Auto) 0.7 10^3/uL (0.0-0.8) 05/22/25 18:50 Baso # (Auto) 0.0 10^3/uL (0.0-0.1) 05/22/25 18:50 Nucleated RBC % (auto) 0 % 05/22/25 18:50 Nucleated RBCs # 0.0 /100WBC 05/22/25 18:50 Specimen Type Arterial 05/22/25 19:47 Sample Site Radial, right 05/22/25 19:47 ABG pH 7.42 (7.35-7.45) 05/22/25 19:47 ABG pCO2 41.2 mmHg (35-45) 05/22/25 19:47 ABG pO2 57.3 mmHg (80.0-100.0) L 05/22/25 19:47 ABG PO2/FiO2 Ratio 272 05/22/25 19:47 ABG HCO3 26.4 mmol/L (22-26) H 05/22/25 19:47 ABG O2 Saturation 90.9 05/22/25 19:47 ABG Base Excess 1.7 mmol/L (-2.0-2.0) 05/22/25 19:47 Porfirio Test Pos 05/22/25 19:47 A-a O2 Gradient 5.4 mmHg (5-10) 05/22/25 19:47 Hematocrit 43.7 % (37-47) 05/22/25 19:47 Hgb O2 Saturation 89.7 % (95-100) L 05/22/25 19:47 Carboxyhemoglobin 1.1 %THgb (0.4-20.1) 05/22/25 19:47 Methemoglobin 0.2 % (0.4-1.5) L 05/22/25 19:47 Total Hemoglobin 14.3 g/dL (12-16) 05/22/25 19:47 Sodium 138.0 mmol/L (131-143) 05/22/25 19:47 Potassium 4.0 mmol/L (3.5-5.0) 05/22/25 19:47 Glucose 100.0 mg/dL (70-115) 05/22/25 19:47 Ionized Calcium 1.2 mmol/L (1.1-1.4) 05/22/25 19:47 O2 Delivery Device Room air 05/22/25 19:47 FiO2 21.0 % 05/22/25 19:47 Underground Conduit Installer ID [email or web address] 05/22/25 19:47 Sodium 138 mmol/L (136-145) 05/22/25 18:50 Potassium 4.4 mmol/L (3.5-5.1) 05/22/25 18:50 Chloride 101 mmol/L (98-107) 05/22/25 18:50 Carbon Dioxide 25 mmol/L (22-29) 05/22/25 18:50 Anion Gap 16.4 (5-19) 05/22/25 18:50 BUN 9 mg/dL (8-23) 05/22/25 18:50 Creatinine 0.8 mg/dL (0.5-0.9) 05/22/25 18:50 GFR Calculation 70.9 mL/min (90-130) L 05/22/25 18:50 Glucose 108 mg/dL (65-115) 05/22/25 18:50 Calculated Osmolality 285 mOsm/kg (285-295) 05/22/25 18:50 Lactic Acid 1.1 mmol/L (0.5-2.2) 05/22/25 18:50 Calcium 9.2 mg/dL (8.5-10.5) 05/22/25 18:50 Total Bilirubin 0.5 mg/dL (0.15-1.2) 05/22/25 18:50 AST 10 U/L (0-32) 05/22/25 18:50 ALT 11 U/L (0-33) 05/22/25 18:50 Alkaline Phosphatase 132 U/L (35-105) H 05/22/25 18:50 Troponin T Baseline 11 ng/L (0-10) H 05/22/25 18:50 Troponin T 120 Minute 10.15 ng/L (0-10) H 05/22/25 20:46 Delta Troponin T -0.85 ABS# (0-10) L 05/22/25 20:46 C-Reactive Protein 16.8 mg/L (0.0-4.9) H 05/22/25 18:50 Total Protein 6.5 g/dL (6.6-8.7) L 05/22/25 18:50 Albumin 4.0 g/dL (3.5-5.2) 05/22/25 18:50 Globulin 2.5 g/dL (1.3-4.6) 05/22/25 18:50 Procalcitonin 0.05 ng/mL (0-0.5) 05/22/25 18:50 All radiology interpretation(s) finalized by discharge Discharge Plan Discharge Patient Disposition: Admitted As Inpatient Admit Provider: Eli Nath Clinical Impression: Acute exacerbation of chronic obstructive pulmonary disease, Acute hypoxemic respiratory failure, Aspiration pneumonia Condition: Stable Discharge Diet: Usual diet Discharge Activity: Resume usual activity Coding Level of Care Code ED 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
[2025-05-22 20:23] LABS: Procalcitonin 0.05 ng/mL (0-0.5)
[2025-05-22 20:35] LABS: Alanine Aminotransferase 11 U/L (0-33); Albumin Level 4.0 g/dL (3.5-5.2); Alkaline Phosphatase 132 U/L (35-105); Anion Gap 16.4 (5-19); Aspartate Amino Transferase 10 U/L (0-32); Blood Urea Nitrogen 9 mg/dL (8-23); Calcium 9.2 mg/dL (8.5-10.5); Carbon Dioxide 25 mmol/L (22-29); Chloride 101 mmol/L (98-107); Creatinine Clr Calc Pharmacy 68.2746; Globulin 2.5 g/dL (1.3-4.6); Glucose 108 mg/dL (65-115); Osmolality Calculated 285 mOsm/kg (285-295); Potassium 4.4 mmol/L (3.5-5.1); Sodium 138 mmol/L (136-145); Total Protein 6.5 g/dL (6.6-8.7)
--- NOTE | 2025-05-22 20:39 | ECG_ITS ---
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
[2025-05-22] MEDS: methylPREDNISolone sod succ 125 mg/2 mL INJ 80 MG IVP (20:50)
[2025-05-22] MEDS: cefTRIAXone 2,000 mg SDV 2000 MG IVP (20:52)
--- NOTE | 2025-05-22 21:02 | PM.HP ---
Providers/Chief Complaint Admitting Physician: ELI IBARRA--DO--patient admitted before midnight Primary Care Provider: Claudia Kong MD Chief Complaint: Luann sent low o2 pnemonia History of Present Illness Bryson Orona is a 69 year old female with asthmatic bronchitis having problem with coughs in the last few days. Patient also had been working with the primary care doctor for home oxygen. Today they were supposed to deliver the oxygen but he did not come. Patient related that on room air desat today was going down into the 80s. She got worried and then come to the emergency room for care. Patient responded to supplemental oxygen along with steroid and antibiotics of doxycycline. Patient does not have any pneumonia radiographically. Breath sounds are very tight. Patient was appropriate for MedSurg admission. Must continue to follow through and optimize. The attending physician and the care managers please be sure that patient received the home oxygen and this had already been worked up by the primary care doctor and supposedly they were supposed to follow through and believe the patient has oxygen at home. In the emergency room patient was saturating at 97% on 2 L of oxygen Review of Systems Narrative: System review upon 10 organ review we are entirely unremarkable except for pulmonary system disorder with room air hypoxia Sabia cough and shortness of breath. Medications/Allergies Home Medications ?Medication ?Instructions ?Recorded ?Confirmed ?Last Taken ?Type albuterol sulfate 90 mcg/actuation 2 puff inhalation Q6H PRN 12/30/19 04/28/25 Unknown History aerosol inhaler Shortness Of Breath cyclobenzaprine 10 mg tablet 10 mg PO BEDTIME 12/30/19 04/28/25 07/11/23 History levothyroxine 75 mcg tablet 75 mcg PO DAILY 12/30/19 04/28/25 07/11/23 History (Synthroid) duloxetine 60 mg capsule,delayed 60 mg PO BID 02/18/20 04/28/25 07/11/23 History release pantoprazole 40 mg tablet,delayed 40 mg PO BID 08/18/20 04/28/25 07/11/23 History release aspirin 81 mg tablet,delayed 81 mg PO DAILY@10 10/27/20 04/28/25 07/11/23 History release nitroglycerin 0.4 mg sublingual 0.4 mg sublingual Q5M PRN Chest 11/18/22 04/28/25 Unknown Rx tablet (Nitrostat) Pain #25 tabs ropinirole 0.25 mg tablet 0.25 mg PO DAILY 11/18/22 04/28/25 07/11/23 History clopidogrel 75 mg tablet 75 mg PO DAILY #90 tabs 04/21/23 04/28/25 07/11/23 Rx metoprolol tartrate 50 mg tablet See Rx Instructions .Route 05/12/23 04/28/25 07/11/23 Rx .COMPLEX #180 tabs acetaminophen 500 mg capsule 500 mg PO Q6H PRN Pain 06/28/23 04/28/25 Unknown History rosuvastatin 40 mg tablet 40 mg PO QPM 07/12/23 04/28/25 07/11/23 History meloxicam 15 mg tablet 15 mg PO DAILY #30 tabs 12/10/24 04/28/25 Unknown Rx right boxer splint #1 ea 01/14/25 01/14/25 Unknown Rx Allergies Allergy/AdvReac Type Severity Reaction Status Date / Time ezetimibe (From Vytorin) Allergy Unknown Unknown Verified 05/22/25 18:15 trandolapril (From Mavik) Allergy hives Verified 05/22/25 18:15 PFSH Acute PFSH: Medical History Hypertension Depression Hemochromatosis GERD (gastroesophageal reflux disease) Hypothyroidism Dyslipidemia H/O acute myocardial infarction Ischemic heart disease ASHD (arteriosclerotic heart disease) Diastolic dysfunction Surgical History S/P tonsillectomy S/P PTCA (percutaneous transluminal coronary angioplasty) Family History Mother Stroke Hyperlipidemia Hypertension CAD (coronary artery disease) Myocardial infarction Father CAD (coronary artery disease) Hypertension Myocardial infarction Sister Cancer BREAST Social History Smoking and tobacco/nicotine status: never used tobacco/nicotine Alcohol intake: never Substance/Drug Use: never Household members: spouse Marital status: Vitals/I&O/Wt Last Vital Signs Temp 98.5 F 05/22/25 18:09 Pulse 80 05/22/25 20:53 BP 128/75 05/22/25 20:10 Pulse Ox 97 05/22/25 20:53 O2 Del Method Nasal Cannula 05/22/25 20:53 O2 Flow Rate 2 05/22/25 20:53 Weight last 48 hrs Weight 86.636 kg Physical Exam Narrative: Generally patient looks okay and not very ill-appearing coughing with very tight air movement in the lungs. HEENT normocephalic atraumatic neck neck is supple cardiovascular heart rate is regular lungs are with coarse breath sounds, abdomen soft nontender nondistended unremarkable extremities are intact no edema has good pulses neurology has no focality lab studies lab studies reviewed and noted. Data 05/22/25 18:50 05/22/25 18:50 Micro: Microbiology 05/22/25 18:50 Blood Culture - Preliminary Blood SPECIMEN COLLECTED 05/22/25 18:50 Blood Culture - Preliminary Blood SPECIMEN COLLECTED A&P Assessment and plan 1. Asthmatic bronchitis with exacerbation: 2. Acute hypoxemic respiratory failure: 3. Cough: 4. Dyspnea and respiratory abnormalities: 5. Hypertension: Plan: #1 Asthmatic bronchitis with exacerbation/COPD exacerbation - Admit to general medical floor for care - Initiated supplemental oxygen at 2 L, pulse ox of 90 in the emergency room came up to be 97. - Antibiotics with doxycycline on board -Steroid initiated - Mucinex initiated to hasting the movement of the sputum #2 Acute hypoxemic respiratory failure - Responded to supplemental oxygen and antibiotics with steroid and Mucinex #3 Cough - Continue to optimize care as per aforementioned care delivery #4 Chronic medical illness or disorder such as hypertension/hypothyroidism/hyperlipidemia - Continue established home management and care #5 GI and DVT prophylaxis in place PDMP PDMP Reviewed: Last Reviewed 05/23/25 04:57 by Eli Ibarra MD Attestations Medical Necessity Statement*: Medic bronchitis with hypoxemia and symptomatology will need at least 2 midnights for optimization of care in an asthmatic patient. Coding Level of Care Code 33429 Diagnoses Asthmatic bronchitis with exacerbation J45.901 Acute hypoxemic respiratory failure J96.01 Cough R05.9 Dyspnea and respiratory abnormalities R06.00; R06.89 Hypertension I10 Time Spent (min) 60
[2025-05-22 21:20] LABS: Troponin 5 2HR 10.15 ng/L (0-10)
[2025-05-22 21:22] LABS: Troponin 5 2HR Delta -0.85 ABS# (0-10)
[2025-05-22] MEDS: doxycycline 100 MG in sodium chloride 0.9% (plus) 100 ML IV (22:07)
[2025-05-23] VITALS (10 sets, daily range): BP systolic 141–172; BP diastolic 61–91; PULSE 72–118; RESP 16–20; TEMP 36.4–36.8; O2SAT 91–94
--- NOTE | 2025-05-23 00:57 | ECG_ITS ---
[employer] Test Date: 2025-05-23 Pat Name: Bryson Orona Department: Room: 269 Gender: Female Sort Worker: : [id number] Requested By: Idalia Daugherty Order Number: [id number] Reading MD: RAYMOND NEWMAN Measurements Intervals [place] Rate: 87 P: 63 PA: 138 QRS: -21 QRSD: 89 T: -3 QT: 358 QTc: 433 Interpretive Statements SINUS RHYTHM BORDERLINE LEFT AXIS DEVIATION [QRS AXIS < -20] Compared to ECG 05/22/2025 20:39:47 T-wave abnormality no longer present Electronically Signed On 05-24-2025 21:19:13 CDT by RAYMOND NEWMAN [email or web address]
[2025-05-23 05:13] LABS: Hematocrit 47.0 % (36-47); Hemoglobin 14.90 g/dL (11.27-16.99); Mean Corpuscular HGB Conc 31.7 g/dL (30-55); Mean Corpuscular Hemoglobin 31.4 pg (27-33); Mean Corpuscular Volume 99.2 fl (85-98); Nucleated Red Blood Cells % 0 %; Platelet Count 220 10^3/cmm (157-399); Red Blood Count 4.74 10^6/uL (3.85-5.65); White Blood Count 7.31 10^3/uL (3.29-11.43)
[2025-05-23 05:29] LABS: Alanine Aminotransferase 11 U/L (0-33); Albumin Level 3.9 g/dL (3.5-5.2); Alkaline Phosphatase 137 U/L (35-105); Anion Gap 18.9 (5-19); Aspartate Amino Transferase 10 U/L (0-32); Blood Urea Nitrogen 9 mg/dL (8-23); Calcium 9.1 mg/dL (8.5-10.5); Carbon Dioxide 22 mmol/L (22-29); Chloride 102 mmol/L (98-107); Creatinine Clr Calc Pharmacy 67.8812; Globulin 3.2 g/dL (1.3-4.6); Glucose 220 mg/dL (65-115); Magnesium 2.2 mg/dL (1.7-2.3); Osmolality Calculated 293 mOsm/kg (285-295); Potassium 3.9 mmol/L (3.5-5.1); Sodium 139 mmol/L (136-145); Total Protein 7.1 g/dL (6.6-8.7)
[2025-05-23 09:05] LABS: Respiratory Syncytial Virus Ce NEGATIVE (Negative); SARS-CoV-2 PCR NEGATIVE (Negative)
[2025-05-23] MEDS: doxycycline 100 MG in sodium chloride 0.9% (plus) 100 ML IV (09:37)
[2025-05-23] MEDS: methylPREDNISolone sod succ 40 mg/mL INJ IVP (09:38)
--- NOTE | 2025-05-23 10:16 | PC.SOCIAL ---
IMM Updated Updated pt on IMM. No questions voiced. Provided pt a copy. Initialed, dated, & timed a copy & placed in chart.
[2025-05-23] MEDS: cefTRIAXone 1,000 mg SDV 1000 MG IVP (12:32)
[2025-05-23 14:01] LABS: Coronavirus 229E,HKU1,NL63,OC4 Not Detected (NOT DETECT); Parainfluenza Virus Type 1 Not Detected (NOT DETECT); Parainfluenza Virus Type 2 Not Detected (NOT DETECT); Parainfluenza Virus Type 3 Not Detected (NOT DETECT); Parainfluenza Virus Type 4 Not Detected (NOT DETECT); SARS-COV-2 Not Detected (NOT DETECT)
--- NOTE | 2025-05-23 21:27 | P.PN_ITS ---
Subjective 2 Subjective: Patient was seen in the morning, was still having mild cough with mild shortness of breath The patient is at home on 1 to 2 L of oxygen as needed Vitals/I&O/Wt Last Vital Signs Temp 97.6 F 05/23/25 20:00 Pulse 91 05/23/25 20:00 Resp 17 05/23/25 20:00 BP 156/61 05/23/25 20:00 Pulse Ox 93 05/23/25 20:00 O2 Del Method Nasal Cannula 05/23/25 20:00 O2 Flow Rate 2 05/23/25 11:09 05/23/25 05/23/25 05/23/25 06:59 14:59 22:59 Intake Total 440 / 440 2315 / 2315 Output Total 100 / 100 500 / 500 Balance 340 / 340 2315 / 2315 -500 / 1815 Weight last 48 hrs Weight 85.275 kg Weight 85.684 kg Weight 88.314 kg Weight 86.636 kg Physical Exam 2 Narrative: General: Alert and oriented, lying comfortably able to speak in full sentences and having mild to moderate cough which is productive in nature HEENT: Normocephalic, atraumatic, grossly unremarkable exam Cardio: normal rate rhythm, normal S1-S2 without any murmurs, rubs, or gallops and JVD normal Respiratory: Bilateral equal air entry without wheezes with mild crackles on the left lower zone, no stridor GI: Abdomen soft, nontender, nondistended, normoactive bowel sounds present all 4 quadrants, Neuro: intact cranial nerves motor and sensory and cerebellar/coordination function without any focal neurological deficit Behavior: Appropriate and cooperative Extremities: Adequate palpable pulses, mild trace edema Data 05/23/25 04:47 05/23/25 04:47 Micro: Microbiology 05/22/25 18:50 Blood Culture - Preliminary Blood NEGATIVE TO DATE 05/22/25 18:50 Blood Culture - Preliminary Blood NEGATIVE TO DATE A&P Assessment and plan 1. Acute hypoxemic respiratory failure: Chest x-ray showed developing opacity on the left lower zone, possible pneumonia Patient to be started on ceftriaxone and azithromycin with short dose of steroids Continue on oxygen therapy as per protocol to maintain oxygen saturation from 92 to 94% Blood cultures so far negative DuoNebs as needed Chest physiotherapy Maintain hemodynamics Respiratory viral panel negative so far 2. Hypothyroidism: Continue home dose levothyroxine 75 mcg daily 3. Hypertension: Patient on metoprolol 50 mg twice daily, blood pressure still uncontrolled To start losartan 25 mg daily Primary care physician follow-up for the management of hypertension 4. Dyslipidemia: Continue rosuvastatin 40 mg, patient already taking at home 5. Atherosclerotic heart disease of [place] coronary artery with unstable angina pectoris: Patient has history of chronic active disease c with multiple prior stents and used to follow with Dr. Sainz and later on was seen by Dr. Pérez. Had a history of stent in 2022 to proximal LAD Continue aspirin and Plavix as per her home medications Cardiology referral at the time of discharge PDMP PDMP Reviewed: Not Reviewed Attestations 2 Medical Necessity Statement*: Patient will stay overnight for the management of severe pneumonia leading to acute hypoxemic respiratory failure requiring inpatient admission currently improving Time Spent in Patient Care: 16 - 35 minutes (>than 50% of time sp ent in counselling and/or direct pt care on unit) . Other Attestations: Patient condition has been discussed at length with the patient/family, I have independently reviewed the chart labs imaging/diagnostics/EKG. the goals of care and code status with the patient/family/NOK/legal installation service representative, and documented accordingly. The management has been done according to the current clinical condition with respect to patient goals of care and based on recommendations/guidelines. The patient/family has been informed about the current condition and further plan of care. Agreed with the plan of care and understood without any language barrier. Every effort was made to ensure accuracy of pathologist. Any obvious errors or omissions should be clarified with the author of the document. Coding Level of Care Code 92826 Diagnoses Acute hypoxemic respiratory failure J96.01 Hypothyroidism E03.9 Hypertension I10 Dyslipidemia E78.5 Atherosclerotic heart disease of [place] coronary artery with unstable angina pectoris I25.110
[2025-05-24] VITALS: BP 123/71; PULSE 80; RESP 19; TEMP 36.7; O2SAT 91
[2025-05-24 02:09] LABS: Estmated Average Glucose 126; Hemoglobin A1C 6.0 % (4.0-6.0)
[2025-05-24 03:59] VITALS: BP 136/76; PULSE 66; RESP 18; TEMP 36.4; O2SAT 93
[2025-05-24] MEDS: LOSARTAN 25 MG TABLET PO (05:23)
[2025-05-24 06:00] VITALS: PULSE 86
[2025-05-24 07:39] VITALS: BP 140/79; PULSE 88; RESP 18; TEMP 36.6; O2SAT 91
[2025-05-24 08:01] VITALS: PULSE 89; RESP 16; O2SAT 95
[2025-05-24 11:35] VITALS: BP 123/62; PULSE 78; RESP 17; TEMP 36.6; O2SAT 91
--- NOTE | 2025-05-24 14:36 | P.DS_ITS ---
Discharge Providers Date of Admission: 05/22/25 22:12 Date of Discharge: May 24, 2025 Attending Provider at Admission: Eli Nath MD Attending Provider at Discharge: Cristóbal Rodney MD Primary Care Provider: Claudia Kong MD Diagnoses at Discharge Discharge Diagnosis 1. Acute hypoxemic respiratory failure: 2. Hypothyroidism, unspecified type: 3. Essential hypertension: 4. Dyslipidemia: 5. Atherosclerosis of [place] coronary artery of [place] heart with unstable angina pectoris: 6. Pneumonia: Reason for Visit Reason for Visit: Luann sent low o2 pnemonia Brief History: Bryson Orona is a 69 year old female with asthmatic bronchitis having problem with coughs in the last few days. Patient also had been working with the primary care doctor for home oxygen. The patient were supposed to deliver the oxygen but he did not come, at the day of admission. Patient related that on room air desat today was going down into the 80s. She got worried and then come to the emergency room for care.And further admitted as a case of acute hypoxemic respiratory failure Hospital Course Hospital Course Patient chest x-ray showed left lower sided infiltrates concerning for pneumonia she was started on ceftriaxone and azithromycin for short dose of steroids. Blood cultures were sent and were negative till date. The patient was provided DuoNebs as needed and respiratory viral panel was negative. Patient improved over 24 hours significantly. Her home medications were reconciled. Initially she was having tachycardia and high blood pressure, after resumption of her home medications it was improved. Her file was reviewed and found to have history of chronic artery disease status post stenting and she has been on Plavix and aspirin which were continued during her hospital stay. She was discharged on levofloxacin to complete the course. It was also found that she has mild lower leg edema and she informed that needs to be on water pill. Lasix provided as needed for her lower leg edema. He had mild sore throat due to coughing and was provided symptomatic treatment for sore throat and coughing as inpatient and at the time of discharge. Further cardiology referral was provided for the continuity of care and managing her chronic artery disease. All the medications were reconciled after confirmation and adequate referrals were provided. Patient condition has been discussed at length with the patient/family, I have independently reviewed the chart labs imaging/diagnostics/EKG. the goals of care and code status with the patient/family/NOK/legal used equipment sales representative, and documented accordingly. The management has been done according to the current clinical condition with respect to patient goals of care and based on recommendations/guidelines. The patient/family has been informed about the current condition and further plan of care. Agreed with the plan of care and understood without any language barrier. Every effort was made to ensure accuracy of agile project manager. Any obvious errors or omissions should be clarified with the author of the document. Physical Exam Narrative: General: Alert and oriented, lying comfortably able to speak in full sentences and having mild cough relatively improved, HEENT: Normocephalic, atraumatic, grossly unremarkable exam Cardio: normal rate rhythm, normal S1-S2 without any murmurs, rubs, or gallops and JVD normal Respiratory: Bilateral equal air entry without wheezes with mild crackles on the left lower zone and improved today, no stridor GI: Abdomen soft, nontender, nondistended, normoactive bowel sounds present all 4 quadrants, Neuro: intact cranial nerves motor and sensory and cerebellar/coordination function without any focal neurological deficit Behavior: Appropriate and cooperative Extremities: Adequate palpable pulses, mild trace edema Discharge Data Studies Completed and Pending Completed Studies During Hospitalization Category Date Time Status XR chest 1V portable [id number] Stat Exams 05/22/25 18:19 Completed Pending at discharge Category Date Time Status Blood Culture Stat Lab 05/22/25 18:50 Results Urine Culture Stat Lab 05/23/25 14:05 Received Radiology Impressions Chest X-Ray 05/22/25 18:19 IMPRESSION: Slight opacity on the left. Laboratory Results WBC 7.31 10^3/uL (3.29-11.43) 05/23/25 04:47 RBC 4.74 10^6/uL (3.85-5.65) 05/23/25 04:47 Hgb 14.90 g/dL (11.27-16.99) 05/23/25 04:47 Hct 47.0 % (36-47) 05/23/25 04:47 MCV 99.2 fl (85-98) H 05/23/25 04:47 MCH 31.4 pg (27-33) 05/23/25 04:47 MCHC 31.7 g/dL (30-55) 05/23/25 04:47 RDW 12.7 % (12.1-15.1) 05/23/25 04:47 Plt Count 220 10^3/cmm (157-399) 05/23/25 04:47 MPV 10.7 fL (7.4-10.4) H 05/23/25 04:47 Neut % (Auto) 88.5 % 05/23/25 04:47 Lymph % (Auto) 10.1 % 05/23/25 04:47 Graham % (Auto) 0.5 % 05/23/25 04:47 Eos % (Auto) 0.0 % 05/23/25 04:47 Baso % (Auto) 0.1 % 05/23/25 04:47 Neut # (Auto) 6.46 10^3/uL (1.8-7.7) 05/23/25 04:47 Lymph # (Auto) 0.7 10^3/uL (0.8-4.8) L 05/23/25 04:47 Graham # (Auto) 0.0 10^3/uL (0.2-0.9) L 05/23/25 04:47 Eos # (Auto) 0.0 10^3/uL (0.0-0.8) 05/23/25 04:47 Baso # (Auto) 0.0 10^3/uL (0.0-0.1) 05/23/25 04:47 Nucleated RBC % (auto) 0 % 05/23/25 04:47 Nucleated RBCs # 0.0 /100WBC 05/23/25 04:47 Specimen Type Arterial 05/22/25 19:47 Sample Site Radial, right 05/22/25 19:47 ABG pH 7.42 (7.35-7.45) 05/22/25 19:47 ABG pCO2 41.2 mmHg (35-45) 05/22/25 19:47 ABG pO2 57.3 mmHg (80.0-100.0) L 05/22/25 19:47 ABG PO2/FiO2 Ratio 272 05/22/25 19:47 ABG HCO3 26.4 mmol/L (22-26) H 05/22/25 19:47 ABG O2 Saturation 90.9 05/22/25 19:47 ABG Base Excess 1.7 mmol/L (-2.0-2.0) 05/22/25 19:47 Porfirio Test Pos 05/22/25 19:47 A-a O2 Gradient 5.4 mmHg (5-10) 05/22/25 19:47 Hematocrit 43.7 % (37-47) 05/22/25 19:47 Hgb O2 Saturation 89.7 % (95-100) L 05/22/25 19:47 Carboxyhemoglobin 1.1 %THgb (0.4-20.1) 05/22/25 19:47 Methemoglobin 0.2 % (0.4-1.5) L 05/22/25 19:47 Total Hemoglobin 14.3 g/dL (12-16) 05/22/25 19:47 Sodium 138.0 mmol/L (131-143) 05/22/25 19:47 Potassium 4.0 mmol/L (3.5-5.0) 05/22/25 19:47 Glucose 100.0 mg/dL (70-115) 05/22/25 19:47 Ionized Calcium 1.2 mmol/L (1.1-1.4) 05/22/25 19:47 O2 Delivery Device Room air 05/22/25 19:47 FiO2 21.0 % 05/22/25 19:47 Order Make Up Clerk ID [email or web address] 05/22/25 19:47 Sodium 139 mmol/L (136-145) 05/23/25 04:47 Potassium 3.9 mmol/L (3.5-5.1) 05/23/25 04:47 Chloride 102 mmol/L (98-107) 05/23/25 04:47 Carbon Dioxide 22 mmol/L (22-29) 05/23/25 04:47 Anion Gap 18.9 (5-19) 05/23/25 04:47 BUN 9 mg/dL (8-23) 05/23/25 04:47 Creatinine 0.7 mg/dL (0.5-0.9) 05/23/25 04:47 GFR Calculation 82.7 mL/min (90-130) L 05/23/25 04:47 Glucose 220 mg/dL (65-115) H 05/23/25 04:47 Estimat Average Glucose 126 05/23/25 04:47 Hemoglobin A1c 6.0 % (4.0-6.0) 05/23/25 04:47 Calculated Osmolality 293 mOsm/kg (285-295) 05/23/25 04:47 Lactic Acid 1.1 mmol/L (0.5-2.2) 05/22/25 18:50 Calcium 9.1 mg/dL (8.5-10.5) 05/23/25 04:47 Phosphorus 3.3 mg/dL (2.5-4.5) 05/23/25 04:47 Magnesium 2.2 mg/dL (1.7-2.3) 05/23/25 04:47 Total Bilirubin 0.2 mg/dL (0.15-1.2) 05/23/25 04:47 AST 10 U/L (0-32) 05/23/25 04:47 ALT 11 U/L (0-33) 05/23/25 04:47 Alkaline Phosphatase 137 U/L (35-105) H 05/23/25 04:47 Troponin T Baseline 11 ng/L (0-10) H 05/22/25 18:50 Troponin T 120 Minute 10.15 ng/L (0-10) H 05/22/25 20:46 Delta Troponin T -0.85 ABS# (0-10) L 05/22/25 20:46 C-Reactive Protein 16.8 mg/L (0.0-4.9) H 05/22/25 18:50 Total Protein 7.1 g/dL (6.6-8.7) 05/23/25 04:47 Albumin 3.9 g/dL (3.5-5.2) 05/23/25 04:47 Globulin 3.2 g/dL (1.3-4.6) 05/23/25 04:47 Procalcitonin 0.05 ng/mL (0-0.5) 05/22/25 18:50 Adenovirus (PCR) Not detected (NOT DETECT) 05/23/25 12:00 C. pneumoniae DNA (PCR) Not detected (NOT DETECT) 05/23/25 12:00 Coronavirus 229E (PCR) Not detected (NOT DETECT) 05/23/25 12:00 Human Metapneumovir PCR Not detected (NOT DETECT) 05/23/25 12:00 Influenza A (H1) PCR Not detected (NOT DETECT) 05/23/25 12:00 Influenza A (PCR) Negative (Negative) 05/22/25 07:00 Influ A (H1/09) PCR Not detected (NOT DETECT) 05/23/25 12:00 Influenza A (H3) PCR Not detected (NOT DETECT) 05/23/25 12:00 Influenza Type A (PCR) Not detected (NOT DETECT) 05/23/25 12:00 Influenza Type B (PCR) Not detected (NOT DETECT) 05/23/25 12:00 M. pneumoniae (PCR) Not detected (NOT DETECT) 05/23/25 12:00 Parainfluenza 1 (PCR) Not detected (NOT DETECT) 05/23/25 12:00 Parainfluenza 2 (PCR) Not detected (NOT DETECT) 05/23/25 12:00 Parainfluenza 3 (PCR) Not detected (NOT DETECT) 05/23/25 12:00 Parainfluenza 4 (PCR) Not detected (NOT DETECT) 05/23/25 12:00 RSV (PCR) Negative (Negative) 05/22/25 07:00 RSV Type A (PCR) Not detected (NOT DETECT) 05/23/25 12:00 RSV Type B (PCR) Not detected (NOT DETECT) 05/23/25 12:00 Entero/Rhino (PCR) Not detected (NOT DETECT) 05/23/25 12:00 SARS-CoV-2 (PCR) Not detected (NOT DETECT) 05/23/25 12:00 Vitals Last Vital Signs Temp 97.9 F 05/24/25 11:35 Pulse 78 05/24/25 11:35 Resp 17 05/24/25 11:35 BP 123/62 05/24/25 11:35 Pulse Ox 91 05/24/25 11:35 O2 Del Method Nasal Cannula 05/24/25 11:35 O2 Flow Rate 2 05/24/25 08:01 Discharge Plan Discharge Patient Disposition: Home Condition: Stable Prescriptions: New levofloxacin 750 mg tablet 750 mg PO DAILY 6 Days Qty: 6 0RF (DME) nebulizers [Aeroneb Go Nebulizer] Misc See Rx Instructions .Route Qty: 1 1RF Rx Instructions: As directed furosemide [Lasix] 20 mg tablet 20 mg PO DAILY MDD 40mg per day PRN (Reason: edema) Qty: 20 0RF benzocaine 15 mg lozenge 15 mg mucous membrane Q6H PRN (Reason: sore throat) Qty: 100 0RF Continued albuterol sulfate 90 mcg/actuation HFA aerosol inhaler 2 puff INHALATION Q6H PRN (Reason: Shortness Of Breath) cyclobenzaprine 10 mg tablet 10 mg PO BEDTIME levothyroxine [Synthroid] 75 mcg tablet 75 mcg PO DAILY duloxetine 60 mg capsule,delayed release(DR/EC) 60 mg PO BID pantoprazole 40 mg tablet,delayed release (DR/EC) 40 mg PO BID (DME) right boxer splint See Rx Instructions .Route .MEDSUPPLY Qty: 1 0RF Rx Instructions: As directed nitroglycerin [Nitrostat] 0.4 mg tablet, sublingual 0.4 mg SUBLINGUAL Q5M PRN (Reason: Chest Pain) Qty: 25 1RF Rx Instructions: do not exceed 3 doses per episode clopidogrel 75 mg tablet 75 mg PO DAILY Qty: 90 3RF aspirin 81 mg Tablet,Delayed Release (Dr/Ec) 81 mg PO DAILY@10 rosuvastatin 40 mg tablet 40 mg PO QPM prednisone 20 mg tablet 40 mg PO DAILY ropinirole 0.5 mg tablet 5 mg PO QPM metoprolol tartrate 50 mg tablet 50 mg PO BID Changed acetaminophen 500 mg capsule 500 mg PO Q6H 10 Days Qty: 40 0RF Discontinued meloxicam 15 mg tablet 15 mg PO DAILY Qty: 30 2RF levofloxacin 500 mg tablet 500 mg PO DAILY Discharge Order = DC NOW: Discharge Order (Routine); Ordered 05/24/25 Ordered By: Cristóbal Rodney Other Ambulatory Orders: DME: Nebulizer with Neb Kit (Order) Location: None Selected Ordered By: Cristóbal Rodney Referrals: Claudia Kong MD [Primary Care Provider, Internal Medicine] - 4-7 days Referral Note: post discharge follow up We have notified your physician's clinic of the need for a follow-up appointment to be scheduled. If you have not heard from them within the next 2 business days, please call them directly. Nehemias Pérez M.D [Physician, Cardiology] Referral Note: patient has history of CAD and stenting, for further follow up and cont of care post discharge We have notified your physician's clinic of the need for a follow-up appointment to be scheduled. If you have not heard from them within the next 2 business days, please call them directly. Discharge Diet: Usual diet Discharge Activity: Resume usual activity Patient Instructions: Furosemide (By mouth), Levofloxacin (By mouth), Benzocaine (By mouth), COPD (Chronic Obstructive Pulmonary Disease) (DC), How to Use a Nebulizer (DC), Opioid Safety, Patient Portal & [facility] Instructions Discharge Attestations Time Spent in Discharge Care*: greater than 30 min Specific Discharge Activities: educating patient, educating and/or supporting family/caregiver, discussing with pcp/other providers, discussing with case resource manager/social workers/dc planners, documenting/other paperwork and evaluating patient/reviewing data Status at Discharge: Cognitive status at discharge: cognitively intact , Behavioral status at discharge: cooperative , Functional status at discharge: independent ambulation , Overall status at discharge: patient is progressing back to baseline Quality Metrics Clinical Quality Measures [ No reported AMI, CVA or VTE this stay] Coding Level of Care Code 65476 Diagnoses Acute hypoxemic respiratory failure J96.01 Hypothyroidism, unspecified type E03.9 Hypothyroidism type: unspecified Essential hypertension I10 Hypertension type: essential hypertension Dyslipidemia E78.5 Atherosclerosis of [place] coronary artery of [place] heart with unstable angina pectoris I25.110 [place] vs. transplanted heart: [place] heart Pneumonia J18.9
== END 2025-05-24 13:15 | disposition home or self-care (01) | DRG 193 ==
LOC: ER 20:46 → MEDSURG 22:13
PROVIDERS: Emergency Medicine; Admitting Provider Internal Medicine; Emergency Provider Physician Assistant; PCP Internal Medicine; Visit Provider Student in an Organized Health Care Education/Training Program
DX: J18.9 Pneumonia, unspecified organism (principal); J96.01 Acute respiratory failure with hypoxia; J45.901 Unspecified asthma with (acute) exacerbation; J44.0 Chronic obstructive pulmonary disease with (acute) lower respiratory infection; E03.9 Hypothyroidism, unspecified; I10 Essential (primary) hypertension; E78.5 Hyperlipidemia, unspecified; I25.10 Atherosclerotic heart disease of native coronary artery without angina pectoris; F32.A Depression, unspecified; E83.119 Hemochromatosis, unspecified; K21.9 Gastro-esophageal reflux disease without esophagitis; I25.2 Old myocardial infarction; R00.0 Tachycardia, unspecified; Z79.02 Long term (current) use of antithrombotics/antiplatelets; Z79.82 Long term (current) use of aspirin; Z95.5 Presence of coronary angioplasty implant and graft
CPT/HCPCS: 36415; 36600; 71045; 80051; 80053; 82330; 82805; 83036; 83605; 83735; 84100; 84145; 84484; 85025; 86140; 87040; 87086; 87486; 87581; 87633; 87637; 93005; 94640; 96372; 96374; 96375; 99285; J0456; J0696; J1650; J2919; J3490; J7030; J7050; J7512; J9999

== ENCOUNTER → 2025-06-24 13:48 | Outpatient (BNVA) | payer MEDICARE, SELFPAY | PROVIDERS: PCP Internal Medicine; Visit Provider Physician Assistant | DX: M17.12 Unilateral primary osteoarthritis, left knee (principal); M23.307 Other meniscus derangements, unspecified meniscus, left knee | CPT/HCPCS: 20610; 99213; J7318 ==